=== PATIENT | female | born 1935 | race Caucasian/White ===

== ENCOUNTER 2016-05-08 14:44 | Inpatient (IN) | payer MEDICARE, OTHER ==
[~2016-05-08] VITALS: Ht 167.6 cm; Wt 86.2 kg
--- NOTE | ~2016-05-08 | CON ---
[place], [place] REPORT OF CONSULTATION NAME: MUSA GARCIA [facility] #: [id number] UNIT #: [id number] ROOM: 519 DOCTOR: BROCK BACH MD BIRTHDATE: [birth year] DOS: 05/09/2016 HISTORY OF PRESENT ILLNESS: The patient is a pleasant 80-year-old Euro-Vin[place]ian woman with multiple admissions in the past and states that she started having trouble standing this morning, felt weak, she felt her legs gave away, she laid on the floor. She also had some anterior chest pain, which radiated to the bilateral arms and subsequently was admitted. Further workup revealed that she got acute anemia and subsequently admitted and consulted for further evaluation and management. History of blood transfusions and had multiple endoscopies, colonoscopy with Dr. Barker without any evidence of any active bleeding. PAST MEDICAL HISTORY: Atrial fibrillation with RVR, coronary artery disease, chronic kidney disease stage 4, GERD, hypertension, history of myocardial infarction, insulin-dependent diabetes mellitus, multiple upper and lower endoscopies without evidence of any bleeding. PAST SURGICAL HISTORY: Cardiac stents, 2 stents placed on right coronary artery, total of 6, history of bilateral cataract extraction, cardiac cath, hysterectomy and cystopexy. SOCIAL HISTORY: No tobacco use, drug use, or drinking. FAMILY HISTORY: Mother had heart and kidney disease. Father had myocardial infarction and disease. ALLERGIES: TO ACTOS. MEDICATIONS: Acetaminophen, aspirin, amiodarone, ferrous sulfate, Clopidrol, vitamin D3, Gray, insulin, isosorbide, lorazepam, metoprolol, nystatin, pantoprazole, primidone, Xarelto and Carafate. REVIEW OF SYSTEMS CONSTITUTIONAL: No chills. No fatigue. No fever. No loss of appetite. No night sweats. No weakness. No weight loss. HEENT: No trouble swallowing. No loss of smell. No loss of hearing. No double vision. No pain. No discharge. ENT AND RESPIRATORY: No wheeze. No sore throat. No change in voice. No hearing loss. No nose bleed. No cough. No trouble breathing through nose. No shortness of breath. No coughing up blood. No epistaxis. CARDIOVASCULAR: No chest pain. No dizziness. No irregular heartbeat. No leg edema. No pain in legs while walking. No palpitations. No shortness of breath. DERMATOLOGIC: No acne. No hives. No laceration. No mole. No rash. ENDOCRINE: No cold intolerance. No diabetes. No fatigue. No hot flashes. No polydipsia. No polyuria. No urinating frequently. No weight loss. HEMATOLOGIC AND LYMPH: No fatigue. No easy bruising. GASTROENTEROLOGIC: No change in bowel habits. No indigestion. No frequent bloating. No vomiting blood. No abdominal cramping. No nausea. No heartburn. No vomiting. No abdominal pain. No dysphagia. No diarrhea. No constipation. No blood in stool. [place], [place] REPORT OF CONSULTATION NAME: MUSA GARCIA UNIT #: [id number] ROOM: [facility] DOCTOR: BROCK BACH MD BIRTHDATE: [birth year] FEMALE REPRODUCTIVE: No vaginal itching. No difficulty urinating. No heavy periods. No dyspareunia. No sexually active. No dysmenorrhea. No pelvic pain. No breast pain. No nipple discharge. No abnormal vaginal discharge. No hot flashes. MUSCULOSKELETAL: No back pain. No muscle pain or weakness. No neck pain. No tingling/numbness. No swelling/bruising. No osteoporosis treatment. OPHTHALMOLOGIC: No double vision. No diminished vision. No loss of vision. UROLOGIC: No dysuria. No frequent nighttime urination. No irregular periods. No pain with urination. No difficulty urinating. No blood in urine. No frequent urination. No urinary incontinence. NEUROLOGIC: No loss of sensation in specific body area. No vertigo. No burning pain in feet. No trouble with balance. No trouble with coordination. No loss of consciousness. No loss of feeling/power. No confusion. No headache. No tingling/numbness. PSYCHOLOGIC: No tinnitus. No headaches. No shortness of breath. No weight decrease. No nausea. No vomiting. No abdominal discomfort. No constipation. No diarrhea. No depression. No anxiety. PHYSICAL EXAMINATION: VITAL SIGNS: Blood pressure 130/70, respiratory rate 18, pulse 82, temperature 98.1. GENERAL: General appearance: Pleasant patient, no apparent distress. HEENT: Oral mucosa appears intact. The external ears are normal in appearance. Nares are patent without lesions, exudates, erythema, or inflammation. Tongue is symmetrical. Uvula is midline. NECK AND THYROID: Neck supple without palpable masses. Trachea is midline. No thyromegaly. No carotid bruit or JVD. BREASTS: Normal. Nipples unremarkable. No drainage. No lumps felt on either side. HEART: Normal S1, S2, without significant murmur, rub, or gallop. LUNGS: Clear to auscultation and percussion with good air entry bilaterally. The patient is breathing easily without the use of accessory muscles. Diaphragmatic excursions are intact. ABDOMEN: No costovertebral angle tenderness. Soft. No organomegaly or masses. Nontender. No hernias present. Liver and spleen are not palpable. LYMPHATIC: No adenopathy noted in the cervical, supraclavicular, axillary, or inguinal regions. NEUROLOGIC: Nonfocal. Oriented to person, place, and time. MENTAL STATUS: Appropriate for mood and affect. PERIPHERAL PULSES: No varicosities. Femoral and pedal pulses are palpable. EXTREMITIES: Without cyanosis, clubbing, or edema. No gross anomalies. LABORATORY DATA: White count of 6.2, hemoglobin 8.7, hematocrit 27.4, platelets 242. From 05/08/2016, white count of 7.1, hemoglobin 6.4, hematocrit 20.7, platelet count of 263. EGFR of 36. Sodium 136, potassium 4.2, chloride 105, bicarb 105. ASSESSMENT: 1. Anemia of unknown etiology with GI workup negative. 2. Chronic kidney disease. [place], [place] REPORT OF CONSULTATION NAME: MUSA GARCIA UNIT #: [id number] ROOM: [facility] DOCTOR: BROCK BACH MD BIRTHDATE: [birth year] 3. Possible anemia of chronic disease/myelodysplastic syndromes though less likely. 4. Status post multiple units of packed red blood cells with increase in hemoglobin and hematocrit. PLAN: We will review the iron studies as well as hemolytic workup has been ordered. The patient may need a bone marrow biopsy. Also, advised to get a capsule endoscopy if possible. Follow bone marrow as outpatient. I had a detailed discussion with the patient about it and she seemed to understand it. In addition, Cardiology looking into her anticoagulation, which could be another reason for loss of blood. Thanks for consulting and letting me participate in the care of this interesting patient. BROCK BACH MD CM:CONSTR:REPORT OF CONSULTATION 1545 05/13/16 1207 interface
[~2016-05-08 14:44] MED LIST: AMLODIPINE BESYL5 MG PO; AMOXICILLIN500 MG PO; ANTIVERT/2525 MG PO; ANTIVERT25 MG PO; ASPI-COR81 M1 PO; ASPIRIN ADULT L81 M2 PO; ASPIRIN81 M1 PO; ATIVAN0.5 MG PO; ATORVASTATIN CA40 M1 PO; AUGMENTIN 875875 MG PO; BUMEX2 MG PO; CARAFATE1 GM/10 ML PO; CIPROFLOXACIN500 MG PO; CLOPIDOGREL75 MG PO; Carafate1 GM/10 ML PO; DIFLUCAN150 MG PO; ENALAPRIL10 MG PO; ENALAPRIL5 MG PO; FEOSOL325 MG PO; FLONASE ALLERG9.9 ML NAS; FUROSEMIDE40 MG PO; GABAPENTIN100 M2 PO; HUMULIN R100 U/ML SC; HYDROCODONE; HYDROCODONE BIT1 T11 PO; IMDUR SA60 M1 PO; IMDUR SA60 MG PO; IMDUR30 MG PO; K-TAB10 MEQ PO; KLOR-CON M2020 MEQ PO; LANTUS; LANTUS100 U/ML SC; LASIX40 MG PO; LEVOFLOXACIN500 MG PO; LOPRESSOR25 MG PO; LOSARTAN POTASS25 M1 PO; MECLIZINE HCL25 M1 PO; METOPROLOL SUCC25 M2 PO; METOPROLOL SUCC50 M2 PO; METOPROLOL50 MG PO; MYSOLINE50 M1 PO; MYSOLINE50 M2 PO; NEURONTIN100 MG PO; NEXIUM40 MG PO; NITROSTAT0.4 MG SL; NORCO 10-325 T1 EACH PO; NORVASC10 MG PO; NORVASC2.5 MG PO; NORVASC5 MG PO; NOVOLOG1 UNIT/0.0 SC; NOVOLOG100 U/ML SC; NYAMYC100000 U/G T; PACERONE200 MG PO; PLAVIX75 M1 PO; PLAVIX75 MG PO; POTASSIUM99 M4 PO; PROTONIX40 MG PO; RANEXA500 M1 PO; REGLAN10 MG PO; RENEXA PO; TESSALON PERLE100 MG PO; TOPROL XL100 MG PO; TOPROL XL50 M1 PO; TRAMADOL HCL50 MG PO; VALACYCLOVIR HYD1 GM PO; VICODIN 5/500 505 MG PO; VITAMIN D34000 UNIT PO; XARELTO15 M1 PO; XARELTO20 M1 PO; ZESTRIL10 MG PO; ZOCOR80 MG PO; [UNRECOGNIZED DRUG - OTHER]
[2016-05-08 14:52] VITALS: BP 131/47
[2016-05-08] MEDS ORDERED: APAP325 MG PO (15:05)
[2016-05-08] MEDS ORDERED: ASPIRIN81 M1 PO (15:06)
[2016-05-08] MEDS ORDERED: ATORVASTATIN CA40 M1 PO (15:06)
[2016-05-08] MEDS ORDERED: AMIODARONE HYD200 MG PO (15:06)
[2016-05-08] MEDS ORDERED: VITAMIN D400 IU PO (15:07)
[2016-05-08] MEDS ORDERED: CLOPIDOGREL75 MG PO (15:07)
[2016-05-08] MEDS ORDERED: IRON325 M2 PO (15:07)
[2016-05-08] MEDS ORDERED: HUMULIN R100 U/ML SC ×2 (15:08→15:10)
[2016-05-08] MEDS ORDERED: LASIX20 MG PO (15:08)
[2016-05-08 15:33] LABS: BASO % 0.3 % (0.0-1.0); EOS % 0.6 % (1.0-4.0); HEMATOCRIT 20.7 % (37.0-47.0); HEMOGLOBIN 6.4 g/dl (12.0-16.0); IG # 0.1 10*3/uL (0.0-0.1); LYMPH # 0.4 10*3/uL (1.3-4.4); LYMPH % 5.1 % (27.0-41.0); MEAN CORPUSCULAR HGB 29.4 pg (27.0-31.0); MEAN CORPUSCULAR HGB CONC 30.9 g/dl (33.0-37.0); MEAN PLATELET VOLUME 10.1 fl (9.6-12.3); MONO # 0.7 10*3/uL (0.1-1.0); MONO % 9.6 % (3.0-9.0); NEUT # 5.9 10*3/uL (2.3-7.9); NEUT % 83.4 % (47.0-73.0); NUCLEATED RED BLOOD CELL 0.3 % (0.0-0.0); PLATELET COUNT AUTOMATED 263 10*3/uL (130-400); RED BLOOD COUNT 2.18 10*6/uL (4.10-5.10); RED CELL DISTRI WIDTH 14.6 % (0-14.5); WHITE BLOOD COUNT 7.1 10*3/uL (4.8-10.8)
[2016-05-08 15:50] LABS: POTASSIUM 4.4 mmol/L (3.5-5.1)
[2016-05-08 15:55] VITALS: BP 117/48
[2016-05-08] MEDS ORDERED: LANTUS100 U/ML SC ×2 (15:59)
[2016-05-08] MEDS ORDERED: ISOSORBIDE MON120 MG PO (15:59)
[2016-05-08] MEDS ORDERED: ATIVAN0.5 MG PO (16:00)
[2016-05-08] MEDS ORDERED: LOPRESSOR50 M1 PO (16:00)
[2016-05-08] MEDS ORDERED: NITROSTAT0.4 MG SL (16:01)
[2016-05-08] MEDS ORDERED: NORCO 10-325 T1 EACH PO (16:02)
[2016-05-08] MEDS ORDERED: PANTOPRAZOLE SO40 MG PO (16:02)
[2016-05-08 16:03] LABS: BILIRUBIN NEGATIVE (NEGATIVE); BLOOD 2+ (NEGATIVE); CLARITY SL CLOUDY (CLEAR); COLOR YELLOW (YELLOW); GLUCOSE 3+ (NEGATIVE); KETONE NEGATIVE (NEGATIVE); LEUKO ESTERASE NEGATIVE (NEGATIVE); NITRITE NEGATIVE (NEGATIVE); PROTEIN 1+ (NEGATIVE); UROBILINOGEN 0.2 E.U./dl (0.2-1.0)
[2016-05-08] MEDS ORDERED: XARELTO15 M1 PO (16:03)
[2016-05-08] MEDS ORDERED: POTASSIUM CHLO10 MEQ PO (16:03)
[2016-05-08] MEDS ORDERED: PRIMIDONE50 MG PO (16:03)
[2016-05-08] MEDS ORDERED: CARAFATE1 G1 PO (16:04)
[2016-05-08] MEDS ORDERED: MYLANTA SUSPENSION PO (16:06)
[2016-05-08 16:12] LABS: WBC 16-20 wbc/hpf (0-5)
[2016-05-08 16:13] LABS: BACTERIA 2+; URINE REFLEX COMMENT YES (NO)
[2016-05-08 17:22] VITALS: BP 130/70
[2016-05-08] MEDS ORDERED: NYSTATIN1 EAC3 MC (18:15)
[2016-05-08 19:10] VITALS: BP 119/32
[2016-05-08 20:00] VITALS: BP 136/43
[2016-05-09] VITALS (12 sets, daily range): BP systolic 113–170; BP diastolic 40–62
[2016-05-09 01:26] LABS: CKMB 0.9 ng/ml (0.5-3.6)
[2016-05-09 02:41] LABS: BASO % 0.1 % (0.0-1.0); EOS % 0.3 % (1.0-4.0); HEMATOCRIT 26.6 % (37.0-47.0); IG # 0.1 10*3/uL (0.0-0.1); LYMPH # 0.8 10*3/uL (1.3-4.4); LYMPH % 10.8 % (27.0-41.0); NEUT # 5.1 10*3/uL (2.3-7.9); NEUT % 72.8 % (47.0-73.0); RETICULOCYTE % 6.46 % (0.50-2.50); WHITE BLOOD COUNT 6.9 10*3/uL (4.8-10.8)
[2016-05-09 02:42] LABS: HEMOGLOBIN 8.6 g/dl (12.0-16.0); IRF 33.5 % (2.4-13.3); RET-He 32.8 pg (32.1-37.9)
[2016-05-09 02:53] LABS: IRON 149 ug/dL (50-170); IRON SATURATION 65 %; UIBC 79 ug/dL (110-365)
[2016-05-09 06:00] LABS: BASO % 0.5 % (0.0-1.0); EOS % 0.3 % (1.0-4.0); HEMATOCRIT 27.4 % (37.0-47.0); HEMOGLOBIN 8.7 g/dl (12.0-16.0); IG # 0.1 10*3/uL (0.0-0.1); LYMPH # 0.7 10*3/uL (1.3-4.4); LYMPH % 11.7 % (27.0-41.0); MEAN CELL VOLUME 92.9 fl (81.0-99.0); MEAN CORPUSCULAR HGB 29.5 pg (27.0-31.0); MEAN CORPUSCULAR HGB CONC 31.8 g/dl (33.0-37.0); MEAN PLATELET VOLUME 10.4 fl (9.6-12.3); MONO % 16.9 % (3.0-9.0); NEUT # 4.3 10*3/uL (2.3-7.9); NEUT % 69.5 % (47.0-73.0); NUCLEATED RED BLOOD CELL 0.3 % (0.0-0.0); PLATELET COUNT AUTOMATED 242 10*3/uL (130-400); RED BLOOD COUNT 2.95 10*6/uL (4.10-5.10); WHITE BLOOD COUNT 6.2 10*3/uL (4.8-10.8)
[2016-05-09 06:06] LABS: CKMB 0.9 ng/ml (0.5-3.6)
[2016-05-09 06:23] LABS: PROTHROMBIN TIME 10.7 SECONDS (9.0-12.4)
[2016-05-09 06:27] LABS: HEMOGLOBIN A1c 7.3 % (4.8-5.6)
[2016-05-09 06:37] LABS: FREE T4 1.19 ng/dl (0.76-1.46); MAGNESIUM 2.5 mg/dL (1.5-2.1); POTASSIUM 3.6 mmol/L (3.5-5.1); THYROID STIM HORMONE (HS) 2.01 uIU/ml (0.358-4.75)
[2016-05-09 08:08] LABS: FOLIC ACID 13.13 ng/mL (>5.38)
[2016-05-09 12:31] LABS: CKMB 1.2 ng/ml (0.5-3.6)
[2016-05-10] VITALS: BP 182/78
[2016-05-10 00:30] VITALS: BP 140/46
[2016-05-10 04:00] VITALS: BP 136/44
[2016-05-10 06:04] LABS: BASO % 0.3 % (0.0-1.0); EOS % 0.4 % (1.0-4.0); HEMATOCRIT 31.6 % (37.0-47.0); HEMOGLOBIN 10.4 g/dl (12.0-16.0); IG # 0.1 10*3/uL (0.0-0.1); LYMPH # 0.6 10*3/uL (1.3-4.4); LYMPH % 8.2 % (27.0-41.0); MEAN CELL VOLUME 92.1 fl (81.0-99.0); MEAN CORPUSCULAR HGB 30.3 pg (27.0-31.0); MEAN CORPUSCULAR HGB CONC 32.9 g/dl (33.0-37.0); MEAN PLATELET VOLUME 10.3 fl (9.6-12.3); MONO # 0.7 10*3/uL (0.1-1.0); MONO % 9.2 % (3.0-9.0); NEUT # 5.9 10*3/uL (2.3-7.9); NEUT % 81.2 % (47.0-73.0); PLATELET COUNT AUTOMATED 246 10*3/uL (130-400); RED BLOOD COUNT 3.43 10*6/uL (4.10-5.10); RED CELL DISTRI WIDTH 15.1 % (0-14.5); WHITE BLOOD COUNT 7.2 10*3/uL (4.8-10.8)
[2016-05-10 08:00] VITALS: BP 142/86
[2016-05-10 12:00] VITALS: BP 142/76
[2016-05-10] MEDS ORDERED: TESSALON PERLE100 MG PO (13:39)
[2016-05-10] MEDS ORDERED: PREDNISONE10 MG PO (13:39)
[2016-05-10] MEDS ORDERED: DOXYCYCLINE100 M3 PO (13:39)
[2016-05-10 16:00] VITALS: BP 154/59
[2016-05-10] MEDS ORDERED: ZOFRAN4 MG PO (16:00)
[2016-05-10] MEDS ORDERED: NORCO 5-325 TA1 EACH PO (16:00)
== END 2016-05-10 16:20 | disposition home or self-care (01) | DRG 811 ==
LOC: ED 14:44 → 5E 16:49 → EDHOLD 16:49 → 5E 17:06
PROVIDERS: Emergency Medicine; Internal Medicine; Internal Medicine Hematology & Oncology
PROC: 30233N1 Transfusion of Nonautologous Red Blood Cells into Peripheral Vein, Percutaneous Approach (ICD-10-PCS; principal; 2016-05-08)
DX: R71.0 Precipitous drop in hematocrit (principal); J96.00 Acute respiratory failure, unspecified whether with hypoxia or hypercapnia; N18.4 Chronic kidney disease, stage 4 (severe); J44.1 Chronic obstructive pulmonary disease with (acute) exacerbation; E11.22 Type 2 diabetes mellitus with diabetic chronic kidney disease; I12.9 Hypertensive chronic kidney disease with stage 1 through stage 4 chronic kidney disease, or unspecified chronic kidney disease; I25.10 Atherosclerotic heart disease of native coronary artery without angina pectoris; K21.9 Gastro-esophageal reflux disease without esophagitis; I48.91 Unspecified atrial fibrillation; E78.5 Hyperlipidemia, unspecified; Z98.42 Cataract extraction status, left eye; Z98.61 Coronary angioplasty status; Z98.41 Cataract extraction status, right eye; I25.2 Old myocardial infarction; Z90.49 Acquired absence of other specified parts of digestive tract; Z82.49 Family history of ischemic heart disease and other diseases of the circulatory system; Z88.8 Allergy status to other drugs, medicaments and biological substances; Z79.82 Long term (current) use of aspirin; Z79.4 Long term (current) use of insulin

== ENCOUNTER → 2016-05-20 | Outpatient (CLI) | payer MEDICARE, OTHER ==
[~2016-05-20] MED LIST changes: +AMIODARONE HYD200 MG PO; +APAP325 MG PO; +CARAFATE1 G1 PO; +DOXYCYCLINE100 M3 PO; +IRON325 M2 PO; +ISOSORBIDE MON120 MG PO; +LASIX20 MG PO; +LOPRESSOR50 M1 PO; +MYLANTA SUSPENSION PO; +NORCO 5-325 TA1 EACH PO; +NYSTATIN1 EAC3 MC; +PANTOPRAZOLE SO40 MG PO; +POTASSIUM CHLO10 MEQ PO; +PREDNISONE10 MG PO; +PRIMIDONE50 MG PO; +VITAMIN D400 IU PO; +ZOFRAN4 MG PO
[2016-05-20 15:36] LABS: BASO % 0.4 % (0.0-1.0); EOS # 0.1 10*3/uL (0.0-0.4); EOS % 0.7 % (1.0-4.0); HEMATOCRIT 42.6 % (37.0-47.0); HEMOGLOBIN 13.4 g/dl (12.0-16.0); LYMPH # 1.3 10*3/uL (1.3-4.4); LYMPH % 18.9 % (27.0-41.0); MEAN CELL VOLUME 92.8 fl (81.0-99.0); MEAN CORPUSCULAR HGB 29.2 pg (27.0-31.0); MEAN CORPUSCULAR HGB CONC 31.5 g/dl (33.0-37.0); MEAN PLATELET VOLUME 10.5 fl (9.6-12.3); MONO # 0.4 10*3/uL (0.1-1.0); MONO % 6.2 % (3.0-9.0); NEUT # 5.1 10*3/uL (2.3-7.9); NEUT % 73.2 % (47.0-73.0); PLATELET COUNT AUTOMATED 335 10*3/uL (130-400); RED BLOOD COUNT 4.59 10*6/uL (4.10-5.10); RED CELL DISTRI WIDTH 13.4 % (0-14.5); RETICULOCYTE % 1.82 % (0.50-2.50)
[2016-05-20 15:43] LABS: IRF 9.9 % (2.4-13.3); RET-He 35.1 pg (32.1-37.9)
== END | disposition home or self-care (01) ==
LOC: LAB 14:59
PROVIDERS: Internal Medicine Hematology & Oncology
DX: D64.9 Anemia, unspecified (principal)

== ENCOUNTER → 2016-07-11 | Outpatient (CLI) | payer MEDICARE, OTHER ==
[2016-07-11 13:44] LABS: BASO % 0.5 % (0.0-1.0); EOS # 0.2 10*3/uL (0.0-0.4); EOS % 1.9 % (1.0-4.0); HEMATOCRIT 34.7 % (37.0-47.0); HEMOGLOBIN 11.1 g/dl (12.0-16.0); LYMPH # 1.1 10*3/uL (1.3-4.4); LYMPH % 13.2 % (27.0-41.0); MEAN CELL VOLUME 90.8 fl (81.0-99.0); MEAN CORPUSCULAR HGB 29.1 pg (27.0-31.0); MEAN PLATELET VOLUME 10.6 fl (9.6-12.3); MONO # 0.7 10*3/uL (0.1-1.0); MONO % 8.6 % (3.0-9.0); NEUT # 6.3 10*3/uL (2.3-7.9); NEUT % 75.4 % (47.0-73.0); PLATELET COUNT AUTOMATED 235 10*3/uL (130-400); RED BLOOD COUNT 3.82 10*6/uL (4.10-5.10); RED CELL DISTRI WIDTH 13.6 % (0-14.5); WHITE BLOOD COUNT 8.4 10*3/uL (4.8-10.8)
== END | disposition home or self-care (01) ==
LOC: LAB 13:10
PROVIDERS: Internal Medicine
DX: M54.5 Low back pain (principal); W19.XXXA Unspecified fall, initial encounter; D63.8 Anemia in other chronic diseases classified elsewhere

== ENCOUNTER → 2016-07-23 | Outpatient (CLI) | payer MEDICARE, OTHER ==
[2016-07-23 15:13] LABS: BASO % 0.4 % (0.0-1.0); EOS # 0.1 10*3/uL (0.0-0.4); EOS % 1.6 % (1.0-4.0); HEMATOCRIT 34.6 % (37.0-47.0); HEMOGLOBIN 11.1 g/dl (12.0-16.0); LYMPH # 1.1 10*3/uL (1.3-4.4); LYMPH % 15.8 % (27.0-41.0); MEAN CELL VOLUME 90.8 fl (81.0-99.0); MEAN CORPUSCULAR HGB 29.1 pg (27.0-31.0); MEAN CORPUSCULAR HGB CONC 32.1 g/dl (33.0-37.0); MONO # 0.4 10*3/uL (0.1-1.0); MONO % 6.2 % (3.0-9.0); NEUT # 5.1 10*3/uL (2.3-7.9); NEUT % 75.6 % (47.0-73.0); PLATELET COUNT AUTOMATED 227 10*3/uL (130-400); RED BLOOD COUNT 3.81 10*6/uL (4.10-5.10); RED CELL DISTRI WIDTH 13.9 % (0-14.5); WHITE BLOOD COUNT 6.8 10*3/uL (4.8-10.8)
== END | disposition home or self-care (01) ==
LOC: MRI 14:00 → LAB 14:06
PROVIDERS: Internal Medicine
DX: I10 Essential (primary) hypertension (principal); T14.8 Other injury of unspecified body region; X58.XXXA Exposure to other specified factors, initial encounter; Y93.89 Activity, other specified; Y92.89 Other specified places as the place of occurrence of the external cause; Y99.8 Other external cause status

== ENCOUNTER → 2016-10-21 | Outpatient (CLI) | payer MEDICARE, OTHER | END | disposition home or self-care (01) | LOC: RAD 10:37 | DX: Z13.820 Encounter for screening for osteoporosis (principal); S32.020A Wedge compression fracture of second lumbar vertebra, initial encounter for closed fracture; Z78.0 Asymptomatic menopausal state; Z90.710 Acquired absence of both cervix and uterus ==

== ENCOUNTER → 2017-01-02 | Outpatient (CLI) | payer MEDICARE, OTHER ==
[~2017-01-02] MED LIST changes: -LOPRESSOR50 M1 PO; +METOPROLOL SUCC50 M1 PO; +MYCOLOG CREAM 115 GM T; +NOVOLOG FL100 UNIT/1 SQ; +PYRIDIUM200 M1 PO; +TRAD5TAB1 PO
== END | disposition home or self-care (01) ==
LOC: RAD 14:32
DX: I50.32 Chronic diastolic (congestive) heart failure (principal); I21.3 ST elevation (STEMI) myocardial infarction of unspecified site

== ENCOUNTER → 2017-01-04 | Outpatient (CLI) | payer MEDICARE, OTHER ==
[2017-01-04 14:20] LABS: BASO % 0.6 % (0.0-1.0); EOS # 0.2 10*3/uL (0.0-0.4); EOS % 3.2 % (1.0-4.0); HEMATOCRIT 35.8 % (37.0-47.0); HEMOGLOBIN 11.3 g/dl (12.0-16.0); LYMPH % 14.2 % (27.0-41.0); MEAN CORPUSCULAR HGB 29.7 pg (27.0-31.0); MEAN CORPUSCULAR HGB CONC 31.6 g/dl (33.0-37.0); MEAN PLATELET VOLUME 10.7 fl (9.6-12.3); MONO # 0.4 10*3/uL (0.1-1.0); MONO % 5.3 % (3.0-9.0); NEUT # 5.5 10*3/uL (2.3-7.9); NEUT % 76.4 % (47.0-73.0); PLATELET COUNT AUTOMATED 231 10*3/uL (130-400); RED BLOOD COUNT 3.81 10*6/uL (4.10-5.10); RED CELL DISTRI WIDTH 13.4 % (0-14.5); WHITE BLOOD COUNT 7.2 10*3/uL (4.8-10.8)
[2017-01-04 14:43] LABS: CREATININE 2.55 mg/dL (0.55-1.02); POTASSIUM 4.3 mmol/L (3.5-5.1); TOTAL PROTEIN 8.3 gm/dL (6.4-8.2)
[2017-01-04 14:49] LABS: THYROID STIM HORMONE (HS) 1.2 uIU/ml (0.358-4.75)
== END | disposition home or self-care (01) ==
LOC: LAB 13:51
PROVIDERS: Internal Medicine
DX: I50.32 Chronic diastolic (congestive) heart failure (principal); I25.84 Coronary atherosclerosis due to calcified coronary lesion; E11.42 Type 2 diabetes mellitus with diabetic polyneuropathy; E55.9 Vitamin D deficiency, unspecified

== ENCOUNTER 2017-01-05 19:50 | Inpatient (IN) | payer MEDICARE, OTHER ==
[~2017-01-05] VITALS: Ht 162.5 cm; Wt 87.3 kg
[2017-01-05 19:50] VITALS: BP 193/70
[~2017-01-05 19:50] MED LIST changes: -MYCOLOG CREAM 115 GM T; -NOVOLOG FL100 UNIT/1 SQ; -PYRIDIUM200 M1 PO; -TRAD5TAB1 PO
[2017-01-05 20:25] VITALS: BP 122/45
[2017-01-05 21:08] LABS: BASO % 0.3 % (0.0-1.0); EOS # 0.2 10*3/uL (0.0-0.4); EOS % 3.1 % (1.0-4.0); HEMATOCRIT 34.4 % (37.0-47.0); HEMOGLOBIN 10.8 g/dl (12.0-16.0); LYMPH # 0.9 10*3/uL (1.3-4.4); LYMPH % 11.1 % (27.0-41.0); MEAN CELL VOLUME 94.2 fl (81.0-99.0); MEAN CORPUSCULAR HGB 29.6 pg (27.0-31.0); MEAN CORPUSCULAR HGB CONC 31.4 g/dl (33.0-37.0); MEAN PLATELET VOLUME 10.6 fl (9.6-12.3); MONO # 0.6 10*3/uL (0.1-1.0); MONO % 8.3 % (3.0-9.0); NEUT # 5.9 10*3/uL (2.3-7.9); NEUT % 76.8 % (47.0-73.0); PLATELET COUNT AUTOMATED 227 10*3/uL (130-400); RED BLOOD COUNT 3.65 10*6/uL (4.10-5.10); RED CELL DISTRI WIDTH 13.2 % (0-14.5); WHITE BLOOD COUNT 7.7 10*3/uL (4.8-10.8)
[2017-01-05 21:18] LABS: ACT PARTIAL THROMBO TIME 23.9 SECONDS (20.8-31.5); INTERNATIONAL NORM RATIO 0.9 (2.0-3.5)
[2017-01-05 21:26] LABS: ALKALINE PHOSPHATASE 173 U/L (45-117); BUN 54 mg/dl (7-24); CHLORIDE 92 mmol/L (98-107); CREATININE 2.58 mg/dL (0.55-1.02); MAGNESIUM 2.7 mg/dL (1.5-2.1); POTASSIUM 4.4 mmol/L (3.5-5.1); SGOT/AST 8 IU/L (3-35); SGPT/ALT 15 U/L (12-78); SODIUM 133 mmol/L (136-145); TOTAL PROTEIN 8.1 gm/dL (6.4-8.2)
[2017-01-05 21:33] LABS: TROPONIN I < 0.015 ng/ml (<0.045)
[2017-01-05 21:34] LABS: BILIRUBIN NEGATIVE (NEGATIVE); BLOOD 2+ (NEGATIVE); CLARITY CLOUDY (CLEAR); COLOR YELLOW (YELLOW); GLUCOSE NEGATIVE (NEGATIVE); KETONE NEGATIVE (NEGATIVE); LEUKO ESTERASE 3+ (NEGATIVE); NITRITE POSITIVE (NEGATIVE); PH 5.5 (5.0-9.0)
[2017-01-05 21:44] LABS: WBC TNTC wbc/hpf (0-5)
[2017-01-05 22:03] LABS: ABG BASE EXCESS 4.9 mmol/L (-2.0-2.0); ABG HCO3 29.5 mmol/l (22-26); ABG O2 SATURATION 96.4 % (95-97); ARTERIAL BLOOD GAS PH 7.424 (7.35-7.45); ARTERIAL BLOOD GAS PO2 87.3 mmHg (80-90)
--- NOTE | 2017-01-05 23:14 | NUR ---
A 81 YO FEMALE admitted to , under the services of ALBAN Henry DO with a diagnosis of SOB, FALLS. Chief complaint is SOB. Patient arrived via ambulance from ER. Monitor applied. Initial assessment completed. Vital signs taken and recorded. ALBAN HENRY DO notified of admission to the unit. Orders received. See assessment for past medical history, medications and allergies. Patient and/or family oriented to unit. [facility]. Clothing/patient valuable form completed. COTY PARKS
--- NOTE | 2017-01-05 23:26 | NUR ---
PT. JORJE HISTORIAN WITH HOME MEDICATIONS AND PT SAID HER DAUGHTER WILL BRING A LIST IN TOMORROW.
[2017-01-06] VITALS: BP 122/45
[2017-01-06 06:18] LABS: BASO % 0.5 % (0.0-1.0); EOS # 0.3 10*3/uL (0.0-0.4); EOS % 3.9 % (1.0-4.0); HEMATOCRIT 31.9 % (37.0-47.0); HEMOGLOBIN 9.9 g/dl (12.0-16.0); LYMPH # 1.4 10*3/uL (1.3-4.4); LYMPH % 21.1 % (27.0-41.0); MEAN CELL VOLUME 95.8 fl (81.0-99.0); MEAN CORPUSCULAR HGB 29.7 pg (27.0-31.0); MEAN PLATELET VOLUME 10.4 fl (9.6-12.3); MONO # 0.7 10*3/uL (0.1-1.0); MONO % 10.2 % (3.0-9.0); NEUT # 4.1 10*3/uL (2.3-7.9); PLATELET COUNT AUTOMATED 215 10*3/uL (130-400); RED BLOOD COUNT 3.33 10*6/uL (4.10-5.10); RED CELL DISTRI WIDTH 13.2 % (0-14.5); WHITE BLOOD COUNT 6.5 10*3/uL (4.8-10.8)
--- NOTE | 2017-01-06 06:28 | NUR ---
24 HR chart check completed.
[2017-01-06 06:45] LABS: ALBUMIN 2.8 gm/dl (3.1-4.5); CREATININE 2.25 mg/dL (0.55-1.02); MAGNESIUM 2.5 mg/dL (1.5-2.1); PHOSPHOROUS 3.8 mg/dL (2.5-4.9); POTASSIUM 3.9 mmol/L (3.5-5.1)
[2017-01-06 06:50] LABS: THYROID STIM HORMONE (HS) 2.41 uIU/ml (0.358-4.75); TOTAL PROTEIN 6.9 gm/dL (6.4-8.2)
[2017-01-06 07:41] LABS: VITAMIN D, 25-HYDROXY 34.9 ng/mL (30-100)
[2017-01-06 08:00] VITALS: BP 129/64
--- NOTE | 2017-01-06 08:30 | NUR ---
PAMPHLET DISTRIBUTOR VS. SLEEPING. I WILL SPEAK TO DAUGHTER ABOUT DC PLAN.
--- NOTE | 2017-01-06 09:38 | NUR ---
LEFT VOICE MAIL FOR DAUGHTER NARESH TO CALL ME TO DISCUSS DC PLAN. CALLED DAUGHTER VIVI WHO TELLS ME PT LIVES WITH HER SISTER NARESH. STATES THEY WOULD LIKE PT TO GO FOR SNF STAY AT [facility] AND [facility]. DC WASTEWATER ENGINEER WILL MAKE REFERRAL.
[2017-01-06] MEDS ORDERED: NOVOLOG FL100 UNIT/1 SQ (10:17)
[2017-01-06] MEDS ORDERED: PYRIDIUM200 M1 PO (10:18)
[2017-01-06] MEDS ORDERED: TRAD5TAB1 PO (10:18)
[2017-01-06] MEDS ORDERED: MYCOLOG CREAM 115 GM T (10:20)
[2017-01-06] MEDS ORDERED: GABAPENTIN100 M2 PO (10:21)
[2017-01-06] MEDS ORDERED: PLAVIX75 M1 PO (10:22)
--- NOTE | 2017-01-06 11:25 | NUR ---
Occupational Therapy evaluation completed this date on 5 with full eval to follow. Precautions include fall risk, h/o falls, o2 use, new ww use/need, IV UE, c/o right knee "giving out", moderate complexity level 55063. Recommend OT per POC and SNF upon d/c to enable safe return home at [facility]. Thank you for this referral. Conchita Evans OTR/l
--- NOTE | 2017-01-06 11:26 | NUR ---
PHYSICAL THERAPY PAtient evaluated on 5, full evaluation to follow. Continue with PT as per plan of care with fall, mod (A) x 2 and knees buckle witout warning precautions. Will require SNF For impaired mobility. Patient is moderate complxity via chart review, tests and evaluation: 41940. Thank you for this referral. Alexandra Bennett,PT
[2017-01-06 12:00] VITALS: BP 150/60
--- NOTE | 2017-01-06 12:02 | NUR ---
MUSA GARCIA [id number] Please refer to the physician's history and physical for past medical history, comorbid conditions, and allergies. Diagnosis: HYPERGLYCEMIA HYPONATREMIA CHRONIC KIDNEY DISEAS Stephen Score: 18,LOW OR NO RISK WOUND DESCRIPTIONS: Location of the wound: left forearm Type of wound: skin tear Thickness: Partial Size: 1.5cm x 5.5cm x 0.1cm 4 small areas noted within this area Tunneling: none Undermining: none Sinus Tract: none Presence of Exudate: serosanguineous Amount: Light Color: Red Odor: None Periwound Skin Appearance: Normal Wound edges: approximated Pain (associated with wound): none at time of assessment How does patient state this happened? pt unsure how she got those Surface the patient is resting on: Isoflex SKIN PREVENTION RECOMMENDATION: 1. Pressure redistribution support surface as appropriate 2. Elevate heels 3. Remove boots/TEDS every shift and reapply 4. Head of bed 30 degrees as tolerated 5. Assess nutrition and hydration 6. Manage moisture 7. Avoid the use of containment devices while in bed 8. Use absorptive products on surfaces limit layers of linens on bed 9. Turn and reposition every 1-2 hours in bed and every 1 hour in chair as tolerated 10. Weight shifts every 15 minutes while up in chair 11. Offloading with pillows or device to keep heels elevated off bed 12. Monitor skin at least every shift 13. Inspect under medical devices twice a day WOUND TREATMENT RECOMMENDATIONS: skin tear guidelines nss, sureprep, versatel, hydrogel cover with optifoam gentle.
--- NOTE | 2017-01-06 13:01 | NUR ---
NORCO 5/325 MG GIVEN FOR C/O BACK PAIN,12/05.
--- NOTE | 2017-01-06 13:07 | NUR ---
MED RECONCILIATION COMPLETED VIA PHARMACIST AT [facility].
--- NOTE | 2017-01-06 13:34 | NUR ---
PHYSICAL THERAPY Kiera seen this PM 1:1 for her therapy session. Went over with Pt on what we were going to do. Transfer supine/sit MIN A X 1, sitting balance supervision X 1. Sit/stand and up on wheeled walker standing balance MOD A X 1, with verbal cueing to watch for bilateral knees buckling and repeat cuse. Gait total 20' X 1, MOD LINE STAKER X 1, with W/W cueing for safety, Pt back supine in bed call light treatment time 17 min. DONNELL FERNANDEZ SCRAPER TENDER.
--- NOTE | 2017-01-06 15:36 | NUR ---
Patient requested to be referred to [facility] or [facility]. Contacted [facility] and faxed referral for both locations. Waiting on acceptance.
[2017-01-06 16:00] VITALS: BP 142/47
[2017-01-06 20:00] VITALS: BP 145/57
--- NOTE | 2017-01-06 20:00 | NUR ---
PT C/O MIDSTERNAL CP 10/05, DESCRIBES SHARP. HR 100. MEDICATED WITH PRN IVP MORPHINE. NO RELIEF OF CP. HR REMAINS AT 100. DR. FRANCIS NOTIFIED. STAT EKG, LABS, AND NITRO ORDERED. CONT. TO MONITOR.
--- NOTE | 2017-01-06 20:41 | NUR ---
NITRO SL GIVEN PER ORDERS. PT STATES THAT CP IS NOW 5/10. RESTING QUIETLY IN BED AT THIS TIME.
[2017-01-06 20:44] LABS: HEMATOCRIT 32.7 % (37.0-47.0); HEMOGLOBIN 10.2 g/dl (12.0-16.0); MEAN CELL VOLUME 95.1 fl (81.0-99.0); MEAN CORPUSCULAR HGB 29.7 pg (27.0-31.0); MEAN CORPUSCULAR HGB CONC 31.2 g/dl (33.0-37.0); MEAN PLATELET VOLUME 10.5 fl (9.6-12.3); PLATELET COUNT AUTOMATED 199 10*3/uL (130-400); RED BLOOD COUNT 3.44 10*6/uL (4.10-5.10); RED CELL DISTRI WIDTH 13.2 % (0-14.5); WHITE BLOOD COUNT 7.9 10*3/uL (4.8-10.8)
--- NOTE | 2017-01-06 20:45 | NUR ---
DR. FRANCIS NOTIFIED OF EKG RESULTS AND PT DECREASING CP.
[2017-01-06 21:01] LABS: ALBUMIN 2.9 gm/dl (3.1-4.5); ALKALINE PHOSPHATASE 115 U/L (45-117); BUN 50 mg/dl (7-24); CHLORIDE 96 mmol/L (98-107); POTASSIUM 4.4 mmol/L (3.5-5.1); SGOT/AST 13 IU/L (3-35); SGPT/ALT 14 U/L (12-78); SODIUM 135 mmol/L (136-145); TOTAL PROTEIN 7.6 gm/dL (6.4-8.2)
[2017-01-06 21:06] LABS: TROPONIN I < 0.015 ng/ml (<0.045)
[2017-01-06 21:09] LABS: PLATELET SUFFICIENCY NORMAL (NORMAL); POLYCHROMASIA SLIGHT; TOTAL CELLS COUNTED 100 #CELLS
--- NOTE | 2017-01-06 22:15 | NUR ---
PATIENT C/O CHEST PAIN 11/04. SL NITRO ADMINISTERED PER PRN ORDER. IN TO SEE PATIENT AT THIS TIME. INSTRUCTED TO ORDER STAT CT OF CHEST. ALSO INSTRUCTED TO GIVE INSULIN PER ORDER, BUT TO HOLD OTHER MEDICATIONS UNTIL PATIENT RETURNS FROM CT. O2 APPLIED VIA NC AT 2L FOR COMFORT. WILL CONTINUE TO MONITOR.
[2017-01-07] VITALS: BP 148/62
--- NOTE | 2017-01-07 00:08 | NUR ---
SPOKE WITH ABOUT CURRENT GLUCOSE LEVEL. PATIENT'S STAT REFLEX WAS 588. RECHECKED BEDSIDE GLUCOSE WITH GLUCOMETER AFTER 22 UNITS WERE GIVEN SUBQ- 556. NEW ORDERS TO FOLLOW.
--- NOTE | 2017-01-07 00:08 | NUR ---
DILAUDID IVP ADMINISTERED PER ORDER FOR CP. PT STATES PAIN HAS DECREASED TO 4/10 AT THIS TIME.
--- NOTE | 2017-01-07 00:34 | NUR ---
REGULAR INSULIN ADMINISTERED IVP ORDERED. WILL RECHECK BS. PT ASYMPTOMATIC.
--- NOTE | 2017-01-07 01:00 | NUR ---
BS VIA GLUCOMETER READS 556. STAT GLUCOSE REFLUX ORDERED W/RESULTS OF 503. DR. FRANCIS NOTIFIED WITH NEW ORDERS OF CONTINUING NOVOLOG INSULIN 25 UNITS TID W/MEALS AND ADMINISTERING 10UNITS REGULAR INSULIN IVP X1 NOW.
--- NOTE | 2017-01-07 02:00 | NUR ---
BS VIA GLUCOMETER READS 435. PT DENIES ANY C/O HYPERGLYCEMIA. WILL CONT. TO MONITOR. PT ASSISTED TO BSC W/OUT DIFF. CALL LIGHT IN REACH. BED ALARM ON.
[2017-01-07 07:42] LABS: CREATININE 2.45 mg/dL (0.55-1.02); POTASSIUM 4.5 mmol/L (3.5-5.1)
[2017-01-07 08:00] VITALS: BP 126/55
--- NOTE | 2017-01-07 08:40 | NUR ---
DR. FAULKNER NOTIFIED OF CRITICAL TROPONIN OF 0.19.
--- NOTE | 2017-01-07 08:41 | NUR ---
PHYSICAL THERAPY Kiera was having her breakfast this physical therapy visit, ,will stop back later. DONNELL FERNANDEZ CNC WOOD LATHE OPERATOR.
--- NOTE | 2017-01-07 08:46 | NUR ---
DR RODRIGES NOTIFIED OF NEW CONSULT D/T CP AND ELEVATED TROPONIN.
--- NOTE | 2017-01-07 09:20 | NUR ---
PT RESTING IN BED JUST FINISHED BREAKFAST. RESP-EASY AND REGULAR. TOLERATED ROUTINE MEDS WITH NO PROBLEM. DRESSING LEFT FOREARM D/I. SLIGHT LE EDEMA,PPP. NO C/O AT THIS TIME. CALL LIGHT IN REACH.
--- NOTE | 2017-01-07 10:18 | NUR ---
PHYSICAL THERAPY Back this AM to work with Kiera for her therapy session. Transfer supine/sit MIN A X 1, sitting balance once up supervision x 1, X 6 min. Sit/stand and standing balance with wheeled walker MOD A X 1, Followed by verbal cues to watch for bilateral knees not to bucke and did well with this this AM visit. Gait total 70' X 1, standard walker and MOD HOST/HOSTESS X 1, with cueing for gait safety, turns with no LOB this gait. Pt up in her bedside chair, call light tray in front. Treatment time 24 min. DONNELL FERNANDEZ BUTCHER SUPERVISOR.
--- NOTE | 2017-01-07 12:00 | NUR ---
SITTING UP IN RECLINER CHAIR. RESP-EASY AND REGULAR. NO C/O AT THIS TIME. CALL LIGHT IN REACH.
--- NOTE | 2017-01-07 12:12 | NUR ---
PHYSICAL THERAPY Kiera seen this PM 1:1 for her therapy gait. Transfer sit/stand and up on her second try with MOD A X 1. Standing balance with wheeled walker MIN/MOD A X 1, verbal cueing to watch for bilateral knee buckeling. Gait 45' X 2, with wheeled walker MOD RAYON CONER X 1, with cueing for gait, walker, turn safety with one sitting rest. Kiera is not safe up ambulating by herself at this time. Pt up in bedside chair call light and went over gait safety treatment time 25 min. DONNELL FERNANDEZ CUSTOMER OPERATIONS SPECIALIST.
--- NOTE | 2017-01-07 14:30 | NUR ---
PT RESTING IN BED. RESP-EASY AND REGULAR. NO C/O AT THIS TIME. CALL LIGHT IN REACH.
--- NOTE | 2017-01-07 14:36 | NUR ---
Patient has been accepted to [facility] in [place] and can go after 3 night stay is completed tomorrow, Friday01/08/17.
--- NOTE | 2017-01-07 14:36 | NUR ---
Shift chart check completed.
--- NOTE | 2017-01-07 15:31 | NUR ---
SPUTUM SPECIMEN SENT TO LAB PER ORDERS
--- NOTE | 2017-01-07 15:37 | NUR ---
ELEVATED TROPONIN NOT CALLED IT IS TRENDING DOWN
[2017-01-07 16:00] VITALS: BP 114/40
[2017-01-07 20:00] VITALS: BP 125/44
--- NOTE | 2017-01-07 23:29 | NUR ---
MEDICATED WITH PRN DULCOLAX PER ORDER AND REQUEST.
[2017-01-08] VITALS: BP 117/49
[2017-01-08 06:28] LABS: HEMATOCRIT 31.9 % (37.0-47.0); HEMOGLOBIN 10.2 g/dl (12.0-16.0); MEAN CELL VOLUME 94.7 fl (81.0-99.0); MEAN CORPUSCULAR HGB 30.3 pg (27.0-31.0); MEAN PLATELET VOLUME 11.1 fl (9.6-12.3); PLATELET COUNT AUTOMATED 219 10*3/uL (130-400); RED BLOOD COUNT 3.37 10*6/uL (4.10-5.10); RED CELL DISTRI WIDTH 13.3 % (0-14.5); WHITE BLOOD COUNT 9.3 10*3/uL (4.8-10.8)
[2017-01-08 06:38] LABS: CREATININE 2.27 mg/dL (0.55-1.02); MAGNESIUM 2.4 mg/dL (1.5-2.1); PHOSPHOROUS 3.3 mg/dL (2.5-4.9); POTASSIUM 4.6 mmol/L (3.5-5.1)
--- NOTE | 2017-01-08 06:38 | NUR ---
MEDICATED WITH PRN NORCO PER ORDER AND REQUEST.
[2017-01-08 07:32] LABS: PLATELET SUFFICIENCY NORMAL (NORMAL); TOTAL CELLS COUNTED 100 #CELLS
--- NOTE | 2017-01-08 07:50 | NUR ---
PT RESTING IN BED, NO DISTRESS NOTED. WILL MONITOR. FAMILY AT BEDSIDE
[2017-01-08 08:00] VITALS: BP 127/39
--- NOTE | 2017-01-08 11:09 | NUR ---
Patient seen 1:1 30 minutes this date. Completed supine to sit EOB CGA use rail and verbal cues proper foot placement for support EOB. Patient completed Stand pivot xfer bed to bedside commode CGA with verbal cues reaching back for arm rest for safety. Completed toileting task Ilya clothes management and CGA hygiene elly care. Completed stand pivot transfer use FWW bedside commode to bed CGA with min verbal cues safety/FWW management. Patient completed stand tolerance use FWW support approx 1 min with c/o fatigue and education purse meliton breathing for energy conservation. Patient completed BUE str. all planes x 10 reps seated EOB with CGA maintain sit balance with fatigue. Patient completed sit to supine Ilya. Call light within reach. Patient identified by name and date of prior session this date. Continue towards plan of care. Vanessa REYES
[2017-01-08 12:00] VITALS: BP 136/51
--- NOTE | 2017-01-08 13:06 | NUR ---
PHYSICAL THERAPY Kiera seen this PM 1:1 for her therapy treatment. Transfer supine/sit MOD A X 1, sitting balance supervision x 1, sit/stand and pivot onto pt's bedside commode MOD A X 1. Followed by gait total 60' X 2, with one sitting rest with this, verbal cueing for gait, walker, turn and balance safety and is improving but not safe by herself. Pt up in her bedside chair for her lunch. DONNELL FERNANDEZ BRICK LOADER.
--- NOTE | 2017-01-08 13:40 | NUR ---
PHYSICAL THERAPY CO-SIGN I approve of the Phyical Therapy notes written above. TIEN PAN PT
[2017-01-08 16:00] VITALS: BP 132/62
[2017-01-08] MEDS ORDERED: Zaroxolyn,Diul2.5 MG PO (16:16)
--- NOTE | 2017-01-08 16:18 | NUR ---
ZAROXLYN ADDED TO MED REC PER DR RODRIGES AND DR VYAS
--- NOTE | 2017-01-08 17:11 | NUR ---
PT RESTING IN BED, NO DISTRESS NOTED. WILL MONITOR
[2017-01-08 20:00] VITALS: BP 124/53
[2017-01-08 21:52] LABS: BILIRUBIN NEGATIVE (NEGATIVE); BLOOD 1+ (NEGATIVE); CLARITY SL CLOUDY (CLEAR); COLOR YELLOW (YELLOW); GLUCOSE NEGATIVE (NEGATIVE); KETONE NEGATIVE (NEGATIVE); LEUKO ESTERASE 3+ (NEGATIVE); NITRITE NEGATIVE (NEGATIVE); UROBILINOGEN 0.2 E.U./dl (0.2-1.0)
[2017-01-08 22:03] LABS: WBC TNTC wbc/hpf (0-5)
[2017-01-08 22:04] LABS: BACTERIA 2+
[2017-01-09] VITALS: BP 127/32
--- NOTE | 2017-01-09 01:08 | NUR ---
PATIENT MEDICATED WITH NORCO AND ROBITUSSIN AC PER PRN ORDER FOR C/O BACK PAIN AND COUGH. RATED BACK PAIN A 6/10 WITH 10 BEING THE WORST. SEE EMAR. REINFORCED USE OF CALL LIGHT.
[2017-01-09 06:03] LABS: CREATININE 2.27 mg/dL (0.55-1.02); POTASSIUM 4.8 mmol/L (3.5-5.1)
[2017-01-09 08:00] VITALS: BP 148/52
--- NOTE | 2017-01-09 08:25 | NUR ---
PHYSICAL THERAPY' Kiera seen this AM and wanting to have her breakfast first, daughter present. DONNELL FERNANDEZ BUSINESS INTELLIGENCE DIRECTOR.
--- NOTE | 2017-01-09 08:43 | NUR ---
PT RESTING IN BED, EATING BREAKFAST. NO DISTRESS NOTED; FAMILY AT BEDSIDE . WILL MONITOR
--- NOTE | 2017-01-09 10:32 | NUR ---
PHYSICAL THERAPY Kiera seen this AM, daughter present. Transfer supine/sit MOD A X 1, sitting balance CG X 1. Sit/stand and standing balance MOD A X 1, with cueing for safety, balance. Gait 50' X 2, with wheeled walker MOD HOSPITAL TECHNICIAN X 1, one sitting rest. Followed by up in her bedside chair, call light, phone and breakfast tray in front, treatment time 24 min. DONNELL FERNANDEZ TILE SETTER.
[2017-01-09 12:00] VITALS: BP 127/59
--- NOTE | 2017-01-09 12:37 | NUR ---
Patient accepted to [facility] in [place] and can go when medically stable for discharge.
[2017-01-09] MEDS ORDERED: ATORVASTATIN CA80 M1 PO (13:12)
[2017-01-09] MEDS ORDERED: DUONEB 3 MG/3 ML3 M1 NEB (13:12)
[2017-01-09] MEDS ORDERED: NORCO 10-325 T1 EACH PO (13:12)
[2017-01-09] MEDS ORDERED: ATIVAN0.5 MG PO (13:12)
[2017-01-09] MEDS ORDERED: Insulin Lispro, Reco SC (13:12)
--- NOTE | 2017-01-09 15:21 | NUR ---
Patient is being discharged to [facility], transportation scheduled for 4:30 pm with [facility]. NH, nursing and family notified.
--- NOTE | 2017-01-09 15:54 | NUR ---
REPORT CALLED TO [place] ( SPOKE WITH GERMÁN )
--- NOTE | 2017-01-09 16:29 | NUR ---
PT REFUSED TO HAVE DC PHOTOS TAKEN. STATES " THIS DRESSING WAS JUST PUT ON HERE "
--- NOTE | 2017-01-09 16:38 | NUR ---
Discharge instructions reviewed with patient/family. Patient receptive and verbalizes understanding. Follow-up care arranged. Written instructions given to patient/family. JOSÉ LUIS KAMINSKI
--- NOTE | 2017-01-10 07:10 | NUR ---
OCCUPATIONAL THERAPY CO-SIGN I approve of the Occupational Therapy notes written above. VIJAY QIU OTR/Uche
--- NOTE | 2017-01-10 07:48 | NUR ---
PHYSICAL THERAPY CO-SIGN I approve of the Phyical Therapy notes written above. TIEN PAN PT
== END 2017-01-09 16:38 | disposition other institution (70) | DRG 280 ==
LOC: ED 19:50 → EDHOLD 22:33 → 5E 22:33 → EDHOLD 22:35 → 5E 01-09 16:38
PROVIDERS: Emergency Medicine Emergency Medical Services; Hospitalist; Student in an Organized Health Care Education/Training Program; ADMIT Internal Medicine
DX: I21.4 Non-ST elevation (NSTEMI) myocardial infarction (principal); N17.0 Acute kidney failure with tubular necrosis; I50.33 Acute on chronic diastolic (congestive) heart failure; N18.4 Chronic kidney disease, stage 4 (severe); D68.59 Other primary thrombophilia; E11.22 Type 2 diabetes mellitus with diabetic chronic kidney disease; E87.1 Hypo-osmolality and hyponatremia; E11.65 Type 2 diabetes mellitus with hyperglycemia; N39.0 Urinary tract infection, site not specified; I13.0 Hypertensive heart and chronic kidney disease with heart failure and stage 1 through stage 4 chronic kidney disease, or unspecified chronic kidney disease; I25.10 Atherosclerotic heart disease of native coronary artery without angina pectoris; K21.9 Gastro-esophageal reflux disease without esophagitis; N32.89 Other specified disorders of bladder; R29.6 Repeated falls; E78.00 Pure hypercholesterolemia, unspecified; F41.1 Generalized anxiety disorder; I48.0 Paroxysmal atrial fibrillation; Z79.4 Long term (current) use of insulin; Z88.8 Allergy status to other drugs, medicaments and biological substances; Z79.899 Other long term (current) drug therapy; Z79.82 Long term (current) use of aspirin; I25.2 Old myocardial infarction; Z95.5 Presence of coronary angioplasty implant and graft; Z90.710 Acquired absence of both cervix and uterus; Z98.41 Cataract extraction status, right eye; Z98.42 Cataract extraction status, left eye; Z82.49 Family history of ischemic heart disease and other diseases of the circulatory system; Z84.1 Family history of disorders of kidney and ureter; Z83.3 Family history of diabetes mellitus; Z82.3 Family history of stroke

== ENCOUNTER 2017-01-18 11:04 | Inpatient (IN) | payer MEDICARE, OTHER ==
[~2017-01-18] VITALS: Ht 165.1 cm; Wt 96.7 kg
[2017-01-18] VITALS (8 sets, daily range): BP systolic 140–153; BP diastolic 55–73
--- NOTE | ~2017-01-18 | PR ---
[place], [place] PROGRESS NOTE NAME: MUSA GARCIA UNIT #: [id number] ROOM: 426 DOCTOR: BARBER RODRIGES MD BIRTHDATE: [birth year] DOS: 01/27/2017 SUBJECTIVE: The patient was seen at her bedside today, 01/27/2017, for followup of atherosclerotic heart disease and paroxysmal atrial fibrillation. She was admitted to the hospital on this occasion with peripheral edema and generalized weakness. She was diuresed and currently appears to be euvolemic. On the other hand, she continues to be very weak. Yesterday, she slept most of the day; today, she is arousable and can hold a conversation, but still has a tremor and a very weak voice. She does appear to be awake and alert and oriented once aroused; however. PHYSICAL EXAMINATION: VITAL SIGNS: Pulse is 68 and regular, blood pressure is 140/60. She is afebrile. She weighs 96.7 kg and has oximetry measurements of 95%. Body mass index is 35.5. NECK: Supple. She has no jugular distention. HEART: Has a regular rhythm with an S4 gallop, but no S3 or murmur. LUNGS: Respirations are unlabored. Her chest is clear anteriorly and laterally. ABDOMEN: Obese, but otherwise benign. EXTREMITIES: Showed no significant ankle edema. IMPRESSION: 1. Atherosclerotic heart disease. 2. Paroxysmal atrial fibrillation, controlled with amiodarone. 3. Acute on chronic diastolic heart failure, currently compensated. 4. Hypertension. 5. Type 2 diabetes mellitus. 6. Chronic renal insufficiency. PLAN: From a heart standpoint, she does seem to be compensated. We will continue to follow her as she is evaluated by her primary team. No other cardiac evaluation is pending at this time. We thank the hospitalist group for asking our advice regarding her care. [place], [place] PROGRESS NOTE NAME: MUSA GARCIA UNIT #: [id number] ROOM: 426 DOCTOR: BARBER RODRIGES MD BIRTHDATE: [birth year] BARBER RODRIGES MD CM:PNTRANS [id number] BARBER RODRIGES MD 01/27/17 2332 interface
--- NOTE | ~2017-01-18 | PR ---
[place], [place] PROGRESS NOTE NAME: MUSA GARCIA [facility] #: [id number] UNIT #: [id number] ROOM: 426 DOCTOR: BARBER RODRIGES MD BIRTHDATE: [birth year] DOS: 01/25/2017 The patient was seen at her bedside today with her daughter in attendance, 01/25/2017. She is an 81-year-old woman who does have a history of coronary artery disease. She had her first stent to the LAD in the distant past and has had multiple catheterizations and stent since then. Her most recent catheterization was done on 11/03/2015 when she was found to have a high-grade stenosis of the right coronary artery and received 2 drug-eluting stents. Since then, she has developed atrial fibrillation and has been managed with amiodarone and rivaroxaban. She also has a history of hypertension, hyperlipidemia and diabetes. She presented to the hospital on this occasion with generalized weakness and dyspnea. She had recently been discharged from the hospital with a non-ST elevation myocardial infarction and had been treated medically because of chronic renal insufficiency. She presented now with dyspnea and weakness, but no chest pain. She was found to have acute on chronic diastolic heart failure. During the hospitalization, she also was documented as having pneumonia and a swallowing study did show that she has silent aspiration. She is being treated with speech therapy and thickened fluids now. In general, she feels like she is doing poorly. She has a hard time breathing and is extremely weak. She still denies any chest pain. PAST HISTORY: Includes, 1. Coronary artery disease, status post multiple stents. 2. Hypertension. 3. Type 2 diabetes mellitus. 4. Chronic renal insufficiency. 5. Acute on chronic diastolic heart failure. 6. Anemia. 7. Dyslipidemia. 8. Obesity. CURRENT MEDICATIONS: Include levofloxacin, vancomycin, piperacillin, vitamin D, metolazone 2.5 mg daily, isosorbide mononitrate 120 mg daily, iron sulfate, Lovenox 30 mg subcutaneously daily, docusate 100 mg daily, clopidogrel 75 mg daily, aspirin 81 mg daily, amiodarone 200 mg daily, pantoprazole 40 mg daily, Carafate 1 gram before meal and at bedtime, Mysoline 50 mg t.i.d., metoprolol 150 mg b.i.d., insulin before meal and at bedtime, gabapentin 200 mg t.i.d., atorvastatin 80 mg at bedtime, Bumex 1 mg IV q.12 hours, nitroglycerin p.r.n., DuoNeb q. 6 hours. PHYSICAL EXAMINATION: VITAL SIGNS: Today, her pulse is 60 with an occasional premature beat. Blood pressure 136/52. She is afebrile. She weighs 96.3 kg and has a body mass index of 35.3. NECK: Supple. She has no jugular distention. She does have mild hepatojugular reflux. Carotids are full. LUNGS: Respirations are unlabored. She has decreased breath sounds at the bases. She is lying at about 30-degree angle. HEART: Has a regular rhythm with an occasional premature beat. She has a [place], [place] PROGRESS NOTE NAME: MUSA GARCIA UNIT #: [id number] ROOM: 426 DOCTOR: BARBER RODRIGES MD BIRTHDATE: [birth year] fourth heart sound, but no third heart sound. ABDOMEN: Obese, but otherwise benign. EXTREMITIES: Showed 1+ edema bilaterally. LABORATORY DATA: Review of the monitor does show sinus rhythm with PACs. IMPRESSION: 1. Recurrent aspiration pneumonia. 2. Atherosclerotic heart disease. The patient currently is not showing any signs of acute coronary ischemia, but did have a non-ST elevation VA around 01/07/2017. 3. Paroxysmal atrial fibrillation. The patient is on amiodarone. Anticoagulation has been stopped because of recurrent anemia and GI bleeding, but she is on dual antiplatelet therapy for her coronary artery disease. 4. History of hypertension. 5. Type 2 diabetes mellitus. 6. Chronic renal insufficiency. PLAN: The patient is being treated for her pneumonia. We will have to watch her carefully for signs of fluid overload, especially since she is receiving vancomycin. For now, we will continue her current medical regimen, but adjust her diuretics as needed for fluid management. We thank the hospitalist physicians for asking our advice regarding her care. BARBER RODRIGES MD CM:PNTRANS [id number] BARBER RODRIGES MD 01/26/17 1609 interface
--- NOTE | ~2017-01-18 | PR ---
[place], [place] PROGRESS NOTE NAME: MUSA GARCIA UNIT #: [id number] ROOM: 426 DOCTOR: BARBER RODRIGES MD BIRTHDATE: [birth year] DOS: 01/26/2017 SUBJECTIVE: The patient was seen at her bedside today, 01/26/2017, with her daughter in attendance. The patient is extremely lethargic today and did not arouse while I was in the room. Her daughter tells me that she has been asleep "all day" and barely wakes up to eat. Even at that, she only eats very small quantities. She is apparently very upset over the fact that she has to have thickened fluids. She is breathing easily and does not appear at all uncomfortable; however, she is quite lethargic. PHYSICAL EXAMINATION: VITAL SIGNS: Today, her pulse is 67 and regular, blood pressure is 146/53. She is afebrile. NECK: Supple. She has no jugular distention. Carotids are full without bruits. LUNGS: Respirations are unlabored. Her chest is clear. HEART: Has a regular rhythm. She has a fourth heart sound, but no third heart sound or murmur. ABDOMEN: Obese, but otherwise benign. EXTREMITIES: Showed trace edema at the ankles. IMPRESSION: 1. Atherosclerotic heart disease. 2. Paroxysmal atrial fibrillation, controlled with amiodarone. 3. Acute on chronic diastolic heart failure, currently compensated. 4. Hypertension. 5. Type 2 diabetes mellitus. 6. Chronic renal insufficiency. PLAN: The etiology of the patient's lethargy is not clear to me. The patient's daughter is quite concerned over the fact that her mother appears to be slipping. She asked me if the patient would be allowed to pick her own food preferences since she is eating almost nothing at this time. I changed her diet to a general diet and told the patient's daughter that she could bring in whatever the patient wants to eat as long as we can thicken any fluids that she receives. We will continue to follow her with her other physicians. At this point, she does appear to be stable from a cardiac standpoint. [place], [place] PROGRESS NOTE NAME: MUSA GARCIA UNIT #: [id number] ROOM: 426 DOCTOR: BARBER RODRIGES MD BIRTHDATE: [birth year] BARBER RODRIGES MD CM:PNTRANS [id number] BARBER RODRIGES MD 01/27/17218 interface
--- NOTE | ~2017-01-18 | PROC NOTE ---
[place], [place] PROCEDURE NOTE [id number] UN[facility] #: [id number] ROOM: 426 DOCTOR: FRIDA ALEJO BIRTHDATE: [birth year] DOS: 01/20/2017 LOCATION: [facility]. Unvd123, bed 1. ORDERING PHYSICIAN: Dr. Dwight Titus. RADIOLOGIST: Dr. Delgado. BACKGROUND INFORMATION: The patient, an 81-year-old female, was seen for modified barium swallow. This test was ordered to rule out aspiration. This patient was admitted from the long term with shortness of breath. MEDICAL HISTORY: Significant for CHF, hypertension, CAD, DM, GERD, AFib, VT, neuropathy, 6 cardiac stents and acute herpes zoster. Chest x-ray is significant for left lower lobe atelectasis and/or infiltrate. The patient currently receives a regular diet and thin liquids. For today's assessment, she was alert and able to participate during the assessment. She reported Globus occurring with foods. She stated that she also has been suffering from increased mucus which she is having difficulty clearing or swallowing. She was unsure how long these problems have been occurring. Patient was receiving oxygen by nasal cannula during the assessment. Oral peripheral examination revealed presence of upper and lower dentures with adequate fit reported. Lingual, labial, and buccal skills were within normal limits in terms of strength, range of motion, and coordination. METHODS AND MATERIALS USED FOR THE EXAM: The patient was positioned in the lateral plane and the examination was viewed under fluoroscopy. The patient was presented with a variety of consistencies to assess swallowing skills including applesauce mixed with barium presented in half teaspoon amounts, barium-coated cookie and sandwich given in bite size pieces and thin nectar and honey-thick liquids presented by cup. The patient took small and larger sip size amount by cup. ORAL PHASE: The patient achieved adequate labial seal around cup and spoon with no anterior loss. Bolus formation and transit were within normal limits. Tongue to palate contact was within normal limits. Mastication was adequate. Tongue to posterior pharyngeal wall contact was mildly reduced with solids. Velar functioning was within normal limits with no nasal regurgitation. PHARYNGEAL PHASE: The pharyngeal swallow occurred within a timely manner. Laryngeal elevation and epiglottic function were reduced with liquid consistencies with silent penetration occurring with thin and nectar thick liquids. No aspiration was observed with any consistency. No penetration was observed with honey-thick barium or any other consistency. Pooling in the vallecula did occur with barium-coated sandwich. The patient was aware of this and stated that she felt like something was stuck. She independently swallowed again which was effective in clearing the residue. ESOPHAGEAL PHASE: This phase of the swallow was not formally assessed during this exam. [place], [place] PROCEDURE NOTE NAME: MUSA GARCIA UNIT #: [id number] ROOM: 426 DOCTOR: FRIDA ALEJO BIRTHDATE: [birth year] IMPRESSIONS AND RECOMMENDATIONS: Based upon assessment results, this 81-year-old patient presents with a mild oropharyngeal dysphagia characterized by pooling in the vallecula with solids, which cleared with re-swallow and penetration with thin and nectar liquids, which was silent. Recommend a regular diet and honey-thick liquids. Followup therapy is recommended focusing on strengthening exercises, safe swallow strategies and education to ensure safe tolerance with highest level diet. The patient was educated on results and recommendations and she verbalized understanding. The patient's nurse and family members were also educated and verbalized understanding. Thank you very much for this referral. Should you have any questions regarding this patient, please contact the speech pathologist at [phone]. FRIDA ALEJO CM:PROCNOTE:PROCEDURE NOTE [id number] FRIDA ALEJO
--- NOTE | ~2017-01-18 | CON ---
[place], [place] REPORT OF CONSULTATION NAME: MUSA GARCIA UNIT #: [id number] ROOM: 426 DOCTOR: MAXINE BAGLEY,NICKI BIRTHDATE: [birth year] DOS: 01/19/2017 REASON FOR CONSULTATION: Congestive heart failure. HISTORY OF PRESENT ILLNESS: The patient is an 81-year-old patient with history of coronary artery disease and diastolic heart failure, anemia, chronic kidney disease, was admitted for her shortness of breath as well as edema in the feet and generalized weakness. She was recently just discharged from the hospital and she was diagnosed with non-ST elevation myocardial infarction as well as CHF and medical therapy was recommended due to her chronic kidney disease. She complained of some progressive shortness of breath in the past few days as well as edema, but no chest pain, no dizziness. She is complaining of some weakness. No PND, no orthopnea. No nausea, vomiting, diarrhea, no fever or chills. No cough or hemoptysis. No neurologic symptoms. No blurry vision, double vision. No hematuria or dysuria. REVIEW OF SYSTEMS: Review of the 10 systems negative except as mentioned above. PAST MEDICAL HISTORY: 1. Coronary artery disease, status post multiple stents. The patient has a total of 6 stents. 2. Hypertension. 3. Chronic kidney disease. 4. Diabetes type 2. 5. Paroxysmal atrial fibrillation. 6. Dyslipidemia. 7. Non-morbid obesity. 8. Anxiety. 9. Gastroesophageal reflux disease. PAST SURGICAL HISTORY: 1. Cardiac stents. 2. History of cataract surgery. 3. History of cystopexy. 4. Hysterectomy. SOCIAL HISTORY: Does not drink or use illicit drugs, does not smoke. ALLERGIES: THE PATIENT IS ALLERGIC TO ACTOS. FAMILY HISTORY: Father from unknown cause. Mother, from heart and kidney problems. HOME MEDICATIONS: Reviewed. PHYSICAL EXAMINATION: VITAL SIGNS: Blood pressure 156/57, previous blood pressure was 136/48, pulse 64, respiratory rate 20. Weight is 92.5 kilograms with BMI 33.9. GENERAL: Alert, comfortable, in no acute distress. HEENT: Pupils are round and equal. No jaundice. Tongue was moist and pharynx [place], [place] REPORT OF CONSULTATION NAME: MUSA GARCIA UNIT #: [id number] ROOM: 426 DOCTOR: MAXINE BAGLEY,NICKI BIRTHDATE: [birth year] was clear. NECK: Supple, no distended neck veins, no carotid bruit. CHEST: Symmetrical, nontender. LUNGS: Diffuse scattered rhonchi, diminished at bases. HEART: Regular rhythm, no S3, grade 1/6 systolic murmur. No palpable thrills. ABDOMEN: Obese, nontender. Bowel sounds normal. EXTREMITIES: Patient has 1+ edema. Distal pulses are palpable. SKIN: Warm and dry. No cyanosis, no clubbing. NEUROLOGIC: The patient is alert, oriented. No focal neurologic deficit. RECTAL: Deferred. GENITOURINARY: Deferred. REVIEW OF THE DIAGNOSTIC TESTS: EKG, CBC, chemistry and cardiac enzymes reviewed. Pertinent labs include hemoglobin 9.3, creatinine 2.18. Hemoglobin A1c 10.2. Echo from 12/2016 showed EF of 70%. Current medications reviewed. The pertinent cardiac medications include aspirin, Plavix, amiodarone, metoprolol and Lipitor. IMPRESSION: 1. Acute on chronic diastolic heart failure. 2. Coronary artery disease status post multiple stents. 3. Hypertension. 4. Diabetes type 2. 5. Chronic kidney disease. 6. Anemia. 7. Dyslipidemia. 8. Non-morbid obesity. RECOMMENDATIONS: 1. Continue current diuretics including intravenous Bumex as well as metolazone. Monitor her daily weights and renal function as well as blood pressures. 2. Continue current cardiac medications including aspirin, Plavix, metoprolol and Lipitor and amiodarone. 3. No further cardiac testing at this time. 4. There is no family at bedside. NICKI GOODMAN MD CM:CONSTR:REPORT OF CONSULTATION 46 01/19/17 2209 interface
[~2017-01-18 11:04] MED LIST changes: +ATORVASTATIN CA80 M1 PO; +DUONEB 3 MG/3 ML3 M1 NEB; +Insulin Lispro, Reco SC; +MYCOLOG CREAM 115 GM T; +NOVOLOG FL100 UNIT/1 SQ; +PYRIDIUM200 M1 PO; +TRAD5TAB1 PO; +VITAMIN D400 I1 PO; -VITAMIN D400 IU PO; +Zaroxolyn,Diul2.5 MG PO
[2017-01-18 12:21] LABS: BASO % 0.2 % (0.0-1.0); EOS # 0.2 10*3/uL (0.0-0.4); EOS % 1.7 % (1.0-4.0); HEMOGLOBIN 9.3 g/dl (12.0-16.0); LYMPH # 0.7 10*3/uL (1.3-4.4); LYMPH % 7.1 % (27.0-41.0); MEAN CELL VOLUME 98.1 fl (81.0-99.0); MEAN CORPUSCULAR HGB 29.4 pg (27.0-31.0); MEAN PLATELET VOLUME 10.8 fl (9.6-12.3); MONO # 0.9 10*3/uL (0.1-1.0); MONO % 9.3 % (3.0-9.0); NEUT # 8.2 10*3/uL (2.3-7.9); NEUT % 80.8 % (47.0-73.0); PLATELET COUNT AUTOMATED 221 10*3/uL (130-400); RED BLOOD COUNT 3.16 10*6/uL (4.10-5.10); RED CELL DISTRI WIDTH 14.4 % (0-14.5); WHITE BLOOD COUNT 10.1 10*3/uL (4.8-10.8)
[2017-01-18 12:36] LABS: ALBUMIN 2.8 gm/dl (3.1-4.5); CREATININE 2.32 mg/dL (0.55-1.02); POTASSIUM 4.6 mmol/L (3.5-5.1); TOTAL PROTEIN 7.4 gm/dL (6.4-8.2)
[2017-01-18 12:40] LABS: BILIRUBIN NEGATIVE (NEGATIVE); BLOOD 2+ (NEGATIVE); CLARITY SL CLOUDY (CLEAR); COLOR YELLOW (YELLOW); GLUCOSE NEGATIVE (NEGATIVE); KETONE NEGATIVE (NEGATIVE); LEUKO ESTERASE 2+ (NEGATIVE); NITRITE NEGATIVE (NEGATIVE); UROBILINOGEN 0.2 E.U./dl (0.2-1.0)
[2017-01-18 12:56] LABS: BACTERIA 1+
--- NOTE | 2017-01-18 14:54 | NUR ---
A 81, admitted to , under the services of CHUY Dickey DO with a diagnosis of CHF. Chief complaint is SHORTNESS OF BREATH. Patient arrived via CART WITH RN from ER. Monitor applied. Initial assessment completed. Vital signs taken and recorded. CHUY DICKEY DO notified of admission to the unit. Orders received. See assessment for past medical history, medications and allergies. Patient and/or family oriented to unit. [facility] 4TH FLOOR visitation policy reviewed. Clothing/patient valuable form completed. ANTONI NUNEZ
[2017-01-18] MEDS ORDERED: COLACE100 MG PO (16:25)
[2017-01-18] MEDS ORDERED: LANTUS SOL100 UNIT/1 SQ (16:34)
[2017-01-18] MEDS ORDERED: HUMALOG100 UNIT/1 SQ (16:37)
[2017-01-18] MEDS ORDERED: DIABETIC T100 MG/51 PO (16:41)
[2017-01-18] MEDS ORDERED: NYSTATIN OINTME30 GM T (16:47)
--- NOTE | 2017-01-18 17:12 | NUR ---
HOME MED REQ UPDATED WITH PATIENT'S LIST FROM SNF.
--- NOTE | 2017-01-18 22:00 | NUR ---
PRN NORCO EFFECTIVE FOR PAIN RELIEF. PT RESTING QUIETLY IN BED WITH EYES CLOSED.
[2017-01-19] VITALS: BP 133/48
--- NOTE | 2017-01-19 04:45 | NUR ---
24 HR chart check completed.
[2017-01-19 06:08] LABS: BASO % 0.3 % (0.0-1.0); EOS # 0.2 10*3/uL (0.0-0.4); EOS % 2.8 % (1.0-4.0); HEMATOCRIT 30.4 % (37.0-47.0); HEMOGLOBIN 9.3 g/dl (12.0-16.0); LYMPH # 0.6 10*3/uL (1.3-4.4); MEAN CELL VOLUME 98.4 fl (81.0-99.0); MEAN CORPUSCULAR HGB 30.1 pg (27.0-31.0); MEAN CORPUSCULAR HGB CONC 30.6 g/dl (33.0-37.0); MEAN PLATELET VOLUME 10.5 fl (9.6-12.3); MONO # 0.8 10*3/uL (0.1-1.0); MONO % 9.8 % (3.0-9.0); NEUT # 6.2 10*3/uL (2.3-7.9); NEUT % 79.5 % (47.0-73.0); PLATELET COUNT AUTOMATED 209 10*3/uL (130-400); RED BLOOD COUNT 3.09 10*6/uL (4.10-5.10); RED CELL DISTRI WIDTH 14.4 % (0-14.5); WHITE BLOOD COUNT 7.8 10*3/uL (4.8-10.8)
[2017-01-19 06:37] LABS: ALBUMIN 2.7 gm/dl (3.1-4.5); MAGNESIUM 3.1 mg/dL (1.5-2.1); POTASSIUM 4.2 mmol/L (3.5-5.1)
[2017-01-19 06:41] LABS: CREATININE 2.18 mg/dL (0.55-1.02); TOTAL PROTEIN 6.9 gm/dL (6.4-8.2)
[2017-01-19 06:48] LABS: ACT PARTIAL THROMBO TIME 26.9 SECONDS (20.8-31.5)
--- NOTE | 2017-01-19 07:49 | NUR ---
NOTIFIED DR GOODMAN OF NEW CONSULT FOR CHF PER PT REQUEST ALSO.
--- NOTE | 2017-01-19 07:54 | NUR ---
24 HR chart check completed.
[2017-01-19 08:00] VITALS: BP 156/57
--- NOTE | 2017-01-19 08:47 | NUR ---
NORCO 5/325 MG GIVEN FOR C/O GENERALIZED BACK PAIN,02/04.
--- NOTE | 2017-01-19 08:50 | NUR ---
SPOKE TO DR GOODMAN R/T CONSULT, HE WILL SEE PT TODAY.
[2017-01-19 12:00] VITALS: BP 150/50
[2017-01-19 16:00] VITALS: BP 152/64
[2017-01-19 20:00] VITALS: BP 153/65
--- NOTE | 2017-01-19 20:00 | NUR ---
PT APPEARS MORE LETHARGIC THAN USUAL. VSS. O2 VIA NC INTACT. PT STATES SHE FEELS CONFUSED. SHE STATES THAT SHE WAS UNSURE WHERE SHE WAS WHEN I AWOKE HER. WILL CONT. TO MONITOR. CALL LIGHT IN REACH. BED ALARM ON.
[2017-01-20] VITALS: BP 133/56
--- NOTE | 2017-01-20 01:19 | NUR ---
24 HR chart check completed.
--- NOTE | 2017-01-20 05:50 | NUR ---
PT CO2 YESTERDAY WAS 35. PT MORE LETHARGIC AND HAS INCREASED CONFUSION. WOULD YOU CONSIDER DR. CANNON CONSULT OR PLACING PT ON BIPAP? RESPS HAVE BEEN LABORED WITH ABD BREATHING. SATS IN MID 90'S ON 2LNC. THANK YOU.
--- NOTE | 2017-01-20 05:58 | NUR ---
PT HAS INCREASED LETHARGY AND CONFUSION. LABORED RESPS WITH ABD BREATHING. SATS IN MID 90'S ON 3LNC O2. CO2 YESTERDAY WAS 35. WOULD YOU CONSIDER DR. CANNON CONSULT OR BIPAP? THANK YOU.
[2017-01-20 06:18] LABS: BASO % 0.3 % (0.0-1.0); EOS # 0.2 10*3/uL (0.0-0.4); EOS % 2.9 % (1.0-4.0); HEMATOCRIT 28.6 % (37.0-47.0); HEMOGLOBIN 8.9 g/dl (12.0-16.0); LYMPH # 0.8 10*3/uL (1.3-4.4); LYMPH % 11.7 % (27.0-41.0); MEAN CELL VOLUME 97.6 fl (81.0-99.0); MEAN CORPUSCULAR HGB 30.4 pg (27.0-31.0); MEAN CORPUSCULAR HGB CONC 31.1 g/dl (33.0-37.0); MEAN PLATELET VOLUME 10.8 fl (9.6-12.3); MONO # 0.9 10*3/uL (0.1-1.0); NEUT # 4.9 10*3/uL (2.3-7.9); NEUT % 71.5 % (47.0-73.0); PLATELET COUNT AUTOMATED 214 10*3/uL (130-400); RED BLOOD COUNT 2.93 10*6/uL (4.10-5.10); RED CELL DISTRI WIDTH 14.2 % (0-14.5); WHITE BLOOD COUNT 6.9 10*3/uL (4.8-10.8)
[2017-01-20 06:40] LABS: ALBUMIN 2.5 gm/dl (3.1-4.5); CREATININE 2.03 mg/dL (0.55-1.02); POTASSIUM 4.4 mmol/L (3.5-5.1)
[2017-01-20 08:00] VITALS: BP 150/54
--- NOTE | 2017-01-20 10:17 | NUR ---
SPEECH PATHOLOGY MBS completed as per orders. Patient displayed a mild oropharyngeal dysphagia characterized by pooling in the valleculae with solids, which cleared with reswallow and penetration with thin and nectar liquids, which was silent. Recommend regular diet and honey thick liquids. Follow up therapy is recommended focusing on strengthening exercises, strategies and miryam. to ensure safety with highest level diet. Patient was educated on results and miryam. and verbalized understanding. Will speak with patient's nurse and post strategies at bedside. Dictated report to follow. Thank you for this referral. FRIDA ALEJO MS[employer]-GRADES 9 THRU 12 VISITING TEACHER
[2017-01-20 12:00] VITALS: BP 130/72
--- NOTE | 2017-01-20 14:03 | NUR ---
Patient is currently skilled at [facility]. Sandy Boucher stated patient is ok to return when medically stable for discharge.
[2017-01-20 16:00] VITALS: BP 139/51
--- NOTE | 2017-01-20 19:08 | NUR ---
TOOK DUTY TO NURSE THIS PT BACK TO HEALTH.
[2017-01-20 20:00] VITALS: BP 122/54
--- NOTE | 2017-01-20 20:00 | NUR ---
ASSUMED CARE OF PATIENT. ASSESSMENT COMPLETE. RESTING IN BED. CALL LIGHT IN REACH. BED ALARM ON. WILL CONTINUE TO MONITOR.
--- NOTE | 2017-01-20 22:00 | NUR ---
PT REASSESED FOR SYMPTOMS OF HYPOGLYCEMIA. PT'S SKIN IS DRY, NO SIGN OF SHAKING, NON LABORED BREATHING, CALL LIGHT IN REACH. WILL CONTINUE TO MONITOR.
[2017-01-21] VITALS: BP 136/52
--- NOTE | 2017-01-21 02:00 | NUR ---
SLEEPING, RESP EASY AND NONLABORED, O2 INTACT VIA 3L NC. NO DISTRESS NOTED. CM INTACT. BED ALARM ON. CALL LIGHT IN REACH. WILL CONTINUE TO MONITOR.
--- NOTE | 2017-01-21 03:02 | NUR ---
MEDICATED WITH PRN NORCO FOR C/O BACK PAIN. WILL MONITOR FOR EFFECTIVENESS
--- NOTE | 2017-01-21 04:00 | NUR ---
SLEEPING. EARLIER MEDICATION APPEARS TO BE EFFECTIVE. NO DISTRESS NOTED
--- NOTE | 2017-01-21 06:00 | NUR ---
PER BUILT IN BED SCALE PT HAD 5 LB WEIGHT GAIN. HERE FOR CHF, CRACKLES AND EDEMA NOTED. MADE AWARE. HE STATES HE WILL PASS THIS ON TO THE DAY TEAM.
[2017-01-21 08:00] VITALS: BP 133/48
--- NOTE | 2017-01-21 08:48 | NUR ---
SPEECH PATHOLOGY Patient was seen for treatment this am. Patient was just starting to eat breakfast when clinician arrived. Student nurse was present with patient. She was sitting upright in bed. She remains weak and easily SOB. She was wearing o2 via NC. Reviewed with patient and student nurse recommendation and reasoning for liquids thickened to honey consistency. Clinician thickened to honey consistency for demonstration. Patient consumed cup via straw. She was fed by clinician as she was having difficulty with self feeding due to weakness and tremors. No overt difficulty was displayed. Safe swallow miryam. which are at bedside were reviewed as well. Patient and her nurse verbalized understanding of information provided. Recommend patient remain on present diet. Continue therapy plan. FRIDA ALEJO MSCCC-DRAIN CLEANER
[2017-01-21 08:57] LABS: BASO % 0.4 % (0.0-1.0); EOS # 0.2 10*3/uL (0.0-0.4); EOS % 3.6 % (1.0-4.0); HEMATOCRIT 31.3 % (37.0-47.0); HEMOGLOBIN 9.6 g/dl (12.0-16.0); LYMPH # 0.7 10*3/uL (1.3-4.4); LYMPH % 9.8 % (27.0-41.0); MEAN CELL VOLUME 97.8 fl (81.0-99.0); MEAN CORPUSCULAR HGB CONC 30.7 g/dl (33.0-37.0); MEAN PLATELET VOLUME 10.8 fl (9.6-12.3); MONO # 0.8 10*3/uL (0.1-1.0); MONO % 11.7 % (3.0-9.0); NEUT % 74.1 % (47.0-73.0); PLATELET COUNT AUTOMATED 221 10*3/uL (130-400); WHITE BLOOD COUNT 6.8 10*3/uL (4.8-10.8)
[2017-01-21 09:12] LABS: ALBUMIN 2.6 gm/dl (3.1-4.5); CREATININE 2.15 mg/dL (0.55-1.02); POTASSIUM 4.7 mmol/L (3.5-5.1); TOTAL PROTEIN 7.5 gm/dL (6.4-8.2)
[2017-01-21 12:00] VITALS: BP 124/45
[2017-01-21 16:00] VITALS: BP 136/62
[2017-01-21 20:00] VITALS: BP 146/56
[2017-01-22] VITALS: BP 152/56
--- NOTE | 2017-01-22 | NUR ---
Patient resting quietly with no c/o discomfort. Respirations easy and regular. Vital signs stable. No overt distress. STEVEN AMARAL
--- NOTE | 2017-01-22 03:08 | NUR ---
24 HR chart check completed.
--- NOTE | 2017-01-22 04:00 | NUR ---
Patient resting quietly with no c/o discomfort. Respirations easy and regular. Vital signs stable. No overt distress. STEVEN AMARAL
--- NOTE | 2017-01-22 06:26 | NUR ---
MEDICATED WITH PO NORCO ORDERED PER PT REQUEST FOR C/O CHRONIC BACK PAIN RATED 5/10. PT IS NOW UP IN CHAIR.
[2017-01-22 07:31] LABS: BASO % 0.4 % (0.0-1.0); EOS # 0.2 10*3/uL (0.0-0.4); EOS % 3.3 % (1.0-4.0); HEMATOCRIT 30.6 % (37.0-47.0); HEMOGLOBIN 9.3 g/dl (12.0-16.0); LYMPH # 0.6 10*3/uL (1.3-4.4); LYMPH % 8.2 % (27.0-41.0); MEAN CELL VOLUME 97.5 fl (81.0-99.0); MEAN CORPUSCULAR HGB 29.6 pg (27.0-31.0); MEAN CORPUSCULAR HGB CONC 30.4 g/dl (33.0-37.0); MEAN PLATELET VOLUME 10.9 fl (9.6-12.3); MONO # 0.7 10*3/uL (0.1-1.0); MONO % 9.3 % (3.0-9.0); NEUT # 5.6 10*3/uL (2.3-7.9); NEUT % 78.5 % (47.0-73.0); PLATELET COUNT AUTOMATED 219 10*3/uL (130-400); RED BLOOD COUNT 3.14 10*6/uL (4.10-5.10); WHITE BLOOD COUNT 7.1 10*3/uL (4.8-10.8)
[2017-01-22 08:00] VITALS: BP 130/62
[2017-01-22 08:10] LABS: CREATININE 2.12 mg/dL (0.55-1.02); POTASSIUM 4.2 mmol/L (3.5-5.1)
--- NOTE | 2017-01-22 08:30 | NUR ---
SPEECH PATHOLOGY Patient was seen for treatment this am. Patient was sitting upright in bedside chair. Significant generalized weakness remains as well as SOB. Patient was attentive and cooperative for tasks. She was educated on pharyngeal exercises to strengthen swallowing musculature. These were demonstrated by clinician. Patient performed the exercises with moderate weakness displayed. She was encouraged to practice them independently throughout the day. Discussed with patient recommendation for continuation of current diet with honey thick liquids for safety, as she remains significantly weak and with high risk for aspiration. Patient verbalized understanding of information provided. Continue therapy plan to ensure safe tolerance of highest level diet. FRIDA ALEJO MSCCC-DEPUTY CLERK OF COURT
[2017-01-22 12:00] VITALS: BP 112/54
[2017-01-22 16:00] VITALS: BP 126/52
[2017-01-22 20:00] VITALS: BP 157/57
[2017-01-23] VITALS: BP 149/48
--- NOTE | 2017-01-23 03:16 | NUR ---
PATIENT SLEEPING AT THIS TIME. NO DISTRESS NOTED, NO CONCERNS AT THIS TIME.
[2017-01-23 08:00] VITALS: BP 138/55
--- NOTE | 2017-01-23 09:20 | NUR ---
SPEECH PATHOLOGY Patient was seen for treatment this am. Patient was upright in chair and reported she is feeling no better, that she is not breathing better and is still swollen. Generalized weakness remains. She was able to recall 2/3 pharyngeal exercises. She performed exercises with cue and model. Moderate weakness was displayed. Physician arrived to examine patient and discuss her progress and plan as patient had multiple questions for him. Recommend patient remain on current diet. Continue therapy plan. FRIDA ALEJO MSCCC-AEROLOGIST
[2017-01-23 10:01] LABS: CREATININE 2.38 mg/dL (0.55-1.02); POTASSIUM 4.8 mmol/L (3.5-5.1)
[2017-01-23 12:00] VITALS: BP 129/62
[2017-01-23 16:00] VITALS: BP 142/60
[2017-01-23 20:00] VITALS: BP 128/52
[2017-01-24] VITALS: BP 148/57
--- NOTE | 2017-01-24 00:25 | NUR ---
PT C/O BACK PAIN REQUESTED AND ADMINISTERED NORCO PO PRN PER ORDERS WILL MONITOR EFFECTS
--- NOTE | 2017-01-24 01:53 | NUR ---
PRN NORCO EFFECTIVE AT THIS TIME, PT RESTING IN BED WITH EYES CLOSED RESPS EASY AND NONLABORED WITH NO S/S OF DISTRESS CALL LIGHT WITH IN REACH
--- NOTE | 2017-01-24 04:35 | NUR ---
PT RESTING IN BED WITH EYES CLOSED RESPS EASY ADN NONLABORED WITH NO S/S OF DISTRESS CALL LIGHT WITH IN REACH
[2017-01-24 05:14] LABS: ALBUMIN 2.5 gm/dl (3.1-4.5); CREATININE 2.32 mg/dL (0.55-1.02); MAGNESIUM 3.2 mg/dL (1.5-2.1); POTASSIUM 4.6 mmol/L (3.5-5.1)
[2017-01-24 08:00] VITALS: BP 146/48
--- NOTE | 2017-01-24 10:49 | NUR ---
Patient can return skilled to [facility] in [place] when medically stable.
--- NOTE | 2017-01-24 11:19 | NUR ---
SPEECH PATHOLOGY Patient was seen for treatment this am. She was sitting upright in bedside chair, alert and cooperative. Generalized weakness remains but patient appeared to be less SOB when talking today. Patient expressed dislike of thick liquids and was reminded of need for and benefit of thick liquid for safety. Pharyngeal exercises were performed with mild-moderate cues to ensure correct technique. Additional exercise was added. Patient reported that she has been doing some of the exercises on her own and it was recommended that she continue independent practice. Continue therapy plan. FRIDA ALEJO MSCCC-REGISTERED RESPIRATORY TECHNICIAN
[2017-01-24 12:00] VITALS: BP 137/88
[2017-01-24 16:00] VITALS: BP 151/52
[2017-01-24 20:00] VITALS: BP 143/53
[2017-01-25] VITALS: BP 134/48
--- NOTE | 2017-01-25 02:52 | NUR ---
24 HR chart check completed.
[2017-01-25 06:46] LABS: BASO % 0.4 % (0.0-1.0); EOS # 0.3 10*3/uL (0.0-0.4); EOS % 3.4 % (1.0-4.0); HEMATOCRIT 29.7 % (37.0-47.0); HEMOGLOBIN 9.1 g/dl (12.0-16.0); LYMPH # 0.7 10*3/uL (1.3-4.4); LYMPH % 9.1 % (27.0-41.0); MEAN CELL VOLUME 97.4 fl (81.0-99.0); MEAN CORPUSCULAR HGB 29.8 pg (27.0-31.0); MEAN CORPUSCULAR HGB CONC 30.6 g/dl (33.0-37.0); MONO # 0.6 10*3/uL (0.1-1.0); MONO % 7.1 % (3.0-9.0); NEUT # 6.4 10*3/uL (2.3-7.9); NEUT % 78.9 % (47.0-73.0); PLATELET COUNT AUTOMATED 221 10*3/uL (130-400); RED BLOOD COUNT 3.05 10*6/uL (4.10-5.10); RED CELL DISTRI WIDTH 13.6 % (0-14.5); WHITE BLOOD COUNT 8.2 10*3/uL (4.8-10.8)
[2017-01-25 06:50] LABS: CREATININE 2.09 mg/dL (0.55-1.02); POTASSIUM 4.4 mmol/L (3.5-5.1)
[2017-01-25 08:00] VITALS: BP 144/48
[2017-01-25 12:00] VITALS: BP 148/47
[2017-01-25 16:00] VITALS: BP 136/52
--- NOTE | 2017-01-25 18:30 | NUR ---
PT STATES THAT NORCO WAS EFFECTIVE FOR PAIN RELIEF.
[2017-01-25 20:00] VITALS: BP 139/57
[2017-01-26] VITALS: BP 115/47
--- NOTE | 2017-01-26 01:36 | NUR ---
24 HR chart check completed.
[2017-01-26 04:00] VITALS: BP 140/54
[2017-01-26 06:56] LABS: CREATININE 2.42 mg/dL (0.55-1.02); POTASSIUM 4.6 mmol/L (3.5-5.1)
[2017-01-26 08:00] VITALS: BP 142/64
[2017-01-26 12:00] VITALS: BP 146/53
[2017-01-26 16:00] VITALS: BP 134/46
--- NOTE | 2017-01-26 18:36 | NUR ---
Shift chart check completed.
[2017-01-26 20:00] VITALS: BP 158/66
[2017-01-27] VITALS: BP 134/61
--- NOTE | 2017-01-27 02:19 | NUR ---
24 HR chart check completed.
[2017-01-27 04:00] VITALS: BP 136/64
[2017-01-27 05:53] LABS: BASO % 0.3 % (0.0-1.0); EOS # 0.2 10*3/uL (0.0-0.4); EOS % 2.1 % (1.0-4.0); HEMATOCRIT 28.1 % (37.0-47.0); HEMOGLOBIN 8.5 g/dl (12.0-16.0); LYMPH # 0.7 10*3/uL (1.3-4.4); LYMPH % 6.7 % (27.0-41.0); MEAN CELL VOLUME 96.2 fl (81.0-99.0); MEAN CORPUSCULAR HGB 29.1 pg (27.0-31.0); MEAN CORPUSCULAR HGB CONC 30.2 g/dl (33.0-37.0); MONO # 0.7 10*3/uL (0.1-1.0); MONO % 6.9 % (3.0-9.0); NEUT # 8.2 10*3/uL (2.3-7.9); NEUT % 83.8 % (47.0-73.0); PLATELET COUNT AUTOMATED 220 10*3/uL (130-400); RED BLOOD COUNT 2.92 10*6/uL (4.10-5.10); RED CELL DISTRI WIDTH 13.9 % (0-14.5); WHITE BLOOD COUNT 9.7 10*3/uL (4.8-10.8)
[2017-01-27 06:04] LABS: ALBUMIN 2.3 gm/dl (3.1-4.5); CREATININE 2.19 mg/dL (0.55-1.02); MAGNESIUM 2.9 mg/dL (1.5-2.1); POTASSIUM 4.3 mmol/L (3.5-5.1); TOTAL PROTEIN 6.9 gm/dL (6.4-8.2)
[2017-01-27 08:00] VITALS: BP 140/60
--- NOTE | 2017-01-27 08:56 | NUR ---
SPEECH PATHOLOGY Patient was seen for treatment this am. Patient was sitting upright in bed. She remains with generalized weakness and SOB with minimal exertion. Patient again verbalized her dislike of honey thick liquids. Need and reasoning for them was explained again as well as plan to upgrade as appropriate. Clinician explained that since patient remains so weak, continued miryam. for honey thick liquid remains but that a trial with nectar liquid could be conducted today. Patient was very pleased with this. She took sips of nectar liquid by spoon and was able to perform effortful swallow exercise during the trial. She also took sips of nectar liquid by cup. Cough was noted post trial. Recommend she remain on honey thick liquid at this time for safety however as her status permits, trials with nectar liquid during therapy will continue in an attempt to improve her tolerance so she can eventually upgrade. During treatment today patient also performed gargling and falsetto exercises. Good effort was displayed but moderate weakness was noted during exercises. Continue therapy plan. FRIDA ALEJO MSCCC-OIL PIPELINE DISPATCHER
--- NOTE | 2017-01-27 09:29 | NUR ---
PATIENT RESTING IN BED WATCHING TELEVISION. PATIENT DENIES ANY PAIN OR DISCOMFORT AT THIS TIME. PATIENT HAD DIMINISHED LUNG SOUND THROUGHOUT BILATERALLY, BUT WAS NOT SHORT OF BREATHE. WILL CONTINUE TO MONITOR PATIENT FOR SXS OF DYSPNEA. PATIENT WAS REORIENTED TO THE ROOM, CALL LIGHT IS WITHIN REACH
--- NOTE | 2017-01-27 09:52 | NUR ---
PHYSICAL THERAPY PAtient evaluated on 4, full evaluation to follow. Continue with PT as per plan of care with fall, max (A), 02 and acute debility precautions. Will require SNF for impaired mobility in order to return to PLOF. PAtient is moderate complexity via chart review, tests and evaluation: [id number]. Thank you for this referral. Mirlande villa,PT
[2017-01-27 12:00] VITALS: BP 166/65
--- NOTE | 2017-01-27 14:51 | NUR ---
PATIENT WAS GIVEN PRN VISTARIL PER PATIENT REQUEST. WILL CONTINUE TO MONITOR PATIENT AND MAINTAIN COMFORT.
[2017-01-27 16:00] VITALS: BP 149/65
[2017-01-27 20:00] VITALS: BP 150/55
--- NOTE | 2017-01-27 22:00 | NUR ---
BLOOD SUGAR 358; COVERAGE GIVEN PER EMAR.
[2017-01-28] VITALS: BP 140/50
--- NOTE | 2017-01-28 03:28 | NUR ---
24HR. CHART CHECK COMPLETE.
--- NOTE | 2017-01-28 05:26 | NUR ---
PRN NORCO GIVEN TO PT. FOR BACK PAIN RATING IT A 9/10. WILL CONTINUE TO MONITOR.
--- NOTE | 2017-01-28 05:56 | NUR ---
PRN NORCO SEEMS TO BE EFFECTIVE, PT. IS RESTING IN CHAIR AT THIS TIME. RESPIRATIONS ARE EASY AND NONLABORED WITH CALL LIGHT IN REACH.
--- NOTE | 2017-01-28 06:00 | NUR ---
PT. UP TO CHAIR THIS MORNING, REFUSING TO BE TRANSFERED BACK TO BED TO BE WEIGHED.
[2017-01-28 06:35] LABS: ALBUMIN 2.5 gm/dl (3.1-4.5); CREATININE 2.19 mg/dL (0.55-1.02); POTASSIUM 3.9 mmol/L (3.5-5.1); TOTAL PROTEIN 7.3 gm/dL (6.4-8.2)
[2017-01-28 06:40] LABS: BASO % 0.3 % (0.0-1.0); EOS # 0.2 10*3/uL (0.0-0.4); EOS % 2.6 % (1.0-4.0); HEMATOCRIT 31.5 % (37.0-47.0); HEMOGLOBIN 9.5 g/dl (12.0-16.0); LYMPH % 11.1 % (27.0-41.0); MEAN CELL VOLUME 97.5 fl (81.0-99.0); MEAN CORPUSCULAR HGB 29.4 pg (27.0-31.0); MEAN CORPUSCULAR HGB CONC 30.2 g/dl (33.0-37.0); MEAN PLATELET VOLUME 11.1 fl (9.6-12.3); MONO # 0.7 10*3/uL (0.1-1.0); MONO % 8.2 % (3.0-9.0); NEUT % 77.5 % (47.0-73.0); PLATELET COUNT AUTOMATED 227 10*3/uL (130-400); RED BLOOD COUNT 3.23 10*6/uL (4.10-5.10); WHITE BLOOD COUNT 9.1 10*3/uL (4.8-10.8)
[2017-01-28 08:00] VITALS: BP 115/41
--- NOTE | 2017-01-28 08:57 | NUR ---
SPEECH PATHOLOGY Patient was seen for treatment this am. Patient was sitting upright in chair being fed breakfast by her daughter. Patient remains very weak. Patient consumed a variety of food and thick liquid items with no overt difficulties. Patient again questioned thickened liquids and it was explained that she is recommended to remain on honey thick liquids for safety. Patient was trialed yesterday with nectar thick liquid during treatment to help build tolerance. Will continue with trials and eventually complete a repeat MBS when status improves, in order to assess radiographically if she can tolerate an upgrade in her liquids, however at this time patient has shown no improvement in her strength and respiratory skills. Patient performed pharyngeal exercises after breakfast, again making an effort but with skills extremely weak. Continue therapy plan. FRIDA ALEJO MSCCC-SPECIALIZED DEVELOPER
[2017-01-28 09:45] VITALS: BP 118/52
--- NOTE | 2017-01-28 10:14 | NUR ---
PHYSICAL THERAPY Kiera seen this AM and was up in her bedside chair. She said that it took two to get her in her chair and right now she just wanted to stay sitting and not nadeem up. DONNELL FERNANDEZ SUPERVISOR CALIBRATION.
[2017-01-28 12:00] VITALS: BP 142/46
[2017-01-28] MEDS ORDERED: NORCO 10-325 T1 EACH PO (12:06)
--- NOTE | 2017-01-28 13:32 | NUR ---
PHYSICAL THERAPY Patient was supine in bed upon therapist arrival for pm therapy visit and seen 1:1 with continuos O2-2L via NC. Patient reports feeling tired with generalized weakness and transfers supine to sit EOB Max A x 1. Patient required v/c for encouragement to tolerate < 5 minutes EOB sit, CGA x 1 and declined therapist request for sit to stand transfer. Patient returned to supine in bed and remained with call light, B heel protectors and bed alarm for safety. Total treatment time 14 minutes and will continue as tolerated to improve functional transfers and mobility. Preston Bob, ELECTRONIC PARTS DESIGNER
--- NOTE | 2017-01-28 13:56 | NUR ---
Patient is being discharged back to [facility], [facility] NH, nursing and family notified.
--- NOTE | 2017-01-28 15:30 | NUR ---
REMOVED SOSA CATHETER, ROCKET PROPELLANT PLANT SUPERVISOR, AND IV HEPLOCK IN PREPARATION FOR DISCHARGE TO [facility]. PATIENT TOLERATED WELL, EMPTIED 200ML CLOUDY YELLOW URINE FROM SOSA DRAINAGE BAG.
--- NOTE | 2017-01-28 16:04 | NUR ---
PATIENT DISCHARGED TO [facility] BY AMBULANCE SERVICE. REPORT CALLED TO [facility]CE[facility]ING [facility].
--- NOTE | 2017-01-30 08:06 | NUR ---
PHYSICAL THERAPY CO-SIGN I approve of the Phyical Therapy notes written above. TIEN PAN PT
== END 2017-01-28 16:04 | disposition home or self-care (01) | DRG 280 ==
LOC: ED 11:04 → 4E 13:50
PROVIDERS: Emergency Medicine; Family Medicine; Internal Medicine; Internal Medicine Hospice and Palliative Medicine; Internal Medicine Nephrology; ADMIT Internal Medicine
PROC: BD11YZZ Fluoroscopy of Esophagus using Other Contrast (ICD-10-PCS; principal; 2017-01-21)
DX: I13.0 Hypertensive heart and chronic kidney disease with heart failure and stage 1 through stage 4 chronic kidney disease, or unspecified chronic kidney disease (principal); I50.33 Acute on chronic diastolic (congestive) heart failure; I21.4 Non-ST elevation (NSTEMI) myocardial infarction; E43 Unspecified severe protein-calorie malnutrition; J18.9 Pneumonia, unspecified organism; N18.4 Chronic kidney disease, stage 4 (severe); D68.59 Other primary thrombophilia; J44.0 Chronic obstructive pulmonary disease with (acute) lower respiratory infection; E11.22 Type 2 diabetes mellitus with diabetic chronic kidney disease; N39.0 Urinary tract infection, site not specified; I48.0 Paroxysmal atrial fibrillation; E83.41 Hypermagnesemia; E66.01 Morbid (severe) obesity due to excess calories; E83.39 Other disorders of phosphorus metabolism; F41.1 Generalized anxiety disorder; E78.00 Pure hypercholesterolemia, unspecified; I25.10 Atherosclerotic heart disease of native coronary artery without angina pectoris; K21.9 Gastro-esophageal reflux disease without esophagitis; N32.89 Other specified disorders of bladder; R07.89 Other chest pain; D50.9 Iron deficiency anemia, unspecified; Z79.4 Long term (current) use of insulin; Z88.8 Allergy status to other drugs, medicaments and biological substances; Z79.899 Other long term (current) drug therapy; Z79.82 Long term (current) use of aspirin; Z90.710 Acquired absence of both cervix and uterus; Z98.41 Cataract extraction status, right eye; Z98.42 Cataract extraction status, left eye; Z95.5 Presence of coronary angioplasty implant and graft; Z82.49 Family history of ischemic heart disease and other diseases of the circulatory system; Z82.3 Family history of stroke; Z83.3 Family history of diabetes mellitus; Z84.1 Family history of disorders of kidney and ureter; Z68.35 Body mass index [BMI] 35.0-35.9, adult

== ENCOUNTER 2017-01-31 19:14 | Inpatient (IN) | payer MEDICARE, OTHER ==
[~2017-01-31] VITALS: Ht 162.6 cm; Wt 90.3 kg
--- NOTE | ~2017-01-31 | O ---
[place], [place] OPERATIVE NOTE NAME: MUSA GARCIA UNIT #: [id number] ROOM: 421 DOCTOR: GLORIA BAGLEY,CADY BIRTHDATE: [birth year] DOS: GASTRO-ENDOSCOPIC REPORT REPORT #1 HISTORY OF PRESENT ILLNESS: The patient has presented with chief complaint of epigastric distress, dysphagia, dyspepsia, anemia, drop in H and H, status post transfusion. PROCEDURE: Today's procedure part of investigation is panendoscopy and colonoscopy. PREMEDICATION: Versed and Diprivan. SCOPE: Olympus forward-viewing gastroscope Q10 video. REPORT: After putting the patient in the left lateral position and after application of lubricant to the scope, the scope was introduced. Thereafter, under direct visualization, I advanced through the length of esophagus without difficulty. Esophagus, cervicothoracic distally carefully examined. Evidence of esophageal moniliasis was appreciated. [place] for fungal study was undertaken. Gastric pouch was entered. Gastritis seen. Gastric bezoar was identified. Multiple antral small ulcerations identified. These were secondary to aspirin. Duodenal bulb, second and third part within normal limits. The patient extubated after antral biopsy was obtained, tolerated the procedure well. IMPRESSION: 1. Multiple small antral ulceration secondary to aspirin. These are small and in view of the presence of Plavix, they could have bled and therefore anemia of microcytic indices. 2. 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 3. Presence of esophageal moniliasis, which is going to be addressed with Diflucan 100 mg daily and that is going to be adjusted for renal insufficiency with GFR of 33. Therefore, 100 mg is going to be adjusted every other day since she is a diabetic, she is having renal failure. On the other hand, she is going to continue with Protonix therapy. She is going to be placed on full liquid diet until her bezoar is resolved in next couple of days. 4. We are going to proceed with colonoscopy. Thank you very much indeed. INDICATIONS: The patient has presented with abdominal pain, cramp, anemia, undergoing investigation. PROCEDURE: Today's procedure part of investigation is colonoscopy plus biopsy and photographic series. PREMEDICATION: Versed and Diprivan. [place], [place] OPERATIVE NOTE NAME: MUSA GARCIA UNIT #: [id number] ROOM: [facility] DOCTOR: GLORIA BAGLEY,CADY BIRTHDATE: [birth year] SCOPE: Olympus forward-viewing colonoscope 10L video. REPORT: After putting the patient in left lateral position and application of lubricant to the scope, the scope was introduced. Thereafter, under direct visualization, I advanced through the length of colon without difficulty. Evidence of pseudomembranous colitis was identified. Multiple pustules in the colon were noticed, photographed, biopsy was obtained. Scope was negotiated to the right colon, gradually withdrawn. The patient extubated, tolerated the procedure well. IMPRESSION: Advanced pseudomembranous colitis, possible etiology is Clostridium difficile colitis. Stool sample was suctioned out, although this was post-colonic prep and may be false negative; however data was collected. PLAN AND DISCUSSION: The patient is going to be started on vancomycin 250 mg p.o. q.i.d. Thank you very much indeed for your kind referral. CADY CASTRO MD CM:OPRECORD:OPERATIVE NOTE [id number] CADY CASTRO MD 02/10/171950 interface
--- NOTE | ~2017-01-31 | CON ---
[place], [place] REPORT OF CONSULTATION NAME: MUSA GARCIA UNIT #: [id number] ROOM: 421 DOCTOR: DAVIS SEVILLA MD,JANNIE BIRTHDATE: [birth year] DOS: 02/04/2017 ____ right upper lung nodule. JANNIE CANNON MD CM:CONSTR:REPORT OF CONSULTATION 1134 02/07/17 1027 PAYTON GONG MIS.R
--- NOTE | ~2017-01-31 | CON ---
[place], [place] REPORT OF CON[facility]ULTATION [id number] UNIT #: [id number] ROOM: 421 DOCTOR: DAVIS SEVILLA MDJANNIE BIRTHDATE: [birth year] DOS: 02/04/2017 PULMONARY CONSULTATION EVALUATION AND MANAGEMENT CONSULTATION REQUESTED: By the hospitalist services for the assessment of shortness of breath for this patient. HISTORY OF PRESENT ILLNESS: This is an 81-year-old white female who has been admitted under care of the hospitalist services noted in a poor historian and not able to give me any history very accurately. Most of the history has been collected from review of the documentation by the other physician note for this patient as well as the nursing notes. The patient has been hospitalized under care of hospitalist services on 02/01/2017. The patient reported symptoms of shortness breath for couple of days. The symptoms have been noted worsening. She has been recently to the hospital, treated for the pneumonia and CHF about 4 days ago. The patient was prescribed the diuretic which has not been used by the patient. She came into the hospital. She has been noted with symptoms of increased shortness of breath ongoing for the past couple of days. She has been noted with some symptoms of cough, which were described to be moderate nonproductive. She was complaining of fatigue with symptoms of chest pain, no wheezing as described by the patient. REVIEW OF SYSTEMS: Noted very limited. CONSTITUTIONAL: However, the patient was noted with fatigue. Denies symptoms of fever or chills. EYES: Denies any burning, redness, tenderness or discharge. EARS, NOSE, THROAT SYMPTOMS: No sore throat, hoarseness, otalgia, postnasal drainage. Mild senile hearing loss. CARDIOVASCULAR: Denies anginal pain noted with some edema of the lower extremities at times. GENITOURINARY: Denies dysuria, suprapubic pain, hematuria. GASTROINTESTINAL: Denies dysphagia, nausea, vomiting, diarrhea, abdominal pain, hematemesis, melena, or hematochezia. MUSCULOSKELETAL: History of degenerative arthritis without any acute pain or tenderness. CENTRAL NERVOUS SYSTEM: Decreased mobility. The patient was noted without any focal neurologic deficit. Remaining systems were reviewed with the patient, they were noted all negative. PAST MEDICAL HISTORY: 1. COPD. 2. General anxiety disorder. 3. Gastroesophageal reflux. 4. Essential hypertension. 5. Coronary artery disease with past myocardial infarction. 6. Hypercholesterolemia, negative hypercoagulable status, details unknown. 7. Type 2 diabetes mellitus. 8. History of past congestive heart failure. 9. History of frequent falls. [place], [place] REPORT OF CONSULTATION NAME: MUSA GARCIA UNIT #: [id number] ROOM: 421 DOCTOR: DAVIS SEVILLA MD,JANNIE BIRTHDATE: [birth year] 10. Impaired mobility. 11. Paroxysmal atrial fibrillation. 12. Obesity. PAST SURGICAL HISTORY: 1. Cardiac catheterization and coronary stents insertion, total of 6 stents inserted previously. 2. Cataract extraction with lens implantation. 3. Bladder repair. 4. Hysterectomy. SOCIAL HISTORY: The patient states she is , has 5 children. Denies history of alcohol use or illicit drug use. FAMILY HISTORY: Reported for myocardial infarction in the family members. MEDICATIONS: On admission were noted use of amiodarone, aspirin, amiodarone 200 mg daily, Lipitor, Plavix, ferrous sulfate, Lasix, gabapentin, Mucinex, Humalog insulin, DuoNeb, Imdur, Tradjenta, Zaroxolyn, metoprolol tartrate, Protonix, primidone, Carafate, vitamin D, and other p.r.n. medications. DRUG ALLERGIES: REPORTED ALLERGIES TO [facility]OS. PHYSICAL EXAMINATION: GENERAL: An 81-year-old female who has been currently lying on the bed without any distress. Height of 5 feet 4 inches, weight of 202 pounds, BMI 34.7. VITAL SIGNS: For the patient which were recorded shows the temperature noted normal since admission, respiratory rate 22-14, heart rate of 60-76, blood pressure 120/64 to 101/48. Intake 1240, output 1050 mL. Pulse oxygen saturation on 3.5 L nasal cannula 92% saturation. Previously on 4 liters was recorded as 94% and prior to that on the BiPAP from admission 40% oxygen saturation noted 95% on room air was noted as 88% upon arrival in the Emergency Room. HEENT: Moderate obesity. Head was atraumatic. Eyes: No icterus. NECK: Supple. CARDIOVASCULAR: S1, S2 is audible. LUNGS: With general reduction in breath sounds with scattered crackles of the lungs. There was no wheezing heard. ABDOMEN: Soft, obese, nontender. EXTREMITIES: Shows chronic obesity with mild edema. SKIN: No lesions or rashes. MUSCULOSKELETAL: No deformities. GENITOURINARY: Generalized weakness and fatigue noted, so examination could not be performed. LABORATORY DATA: Reviewed for this patient, CBC on 01/31/2017, WBC count 14.6, hemoglobin 9.4, hematocrit 31.3, platelet count 298,000. PT/INR 1.0/. On 01/31/2017, lactic acid 1.4 on admission. Ionized calcium 4.6 on admission that was normal. Influenza A and B, nasal washing antigen noted negative for influenza A and B. The CMP of 01/31/2017, BUN 54, creatinine 2.49. The CMP of [place], [place] REPORT OF CONSULTATION NAME: MUSA GARCIA UNIT #: [id number] ROOM: [facility] DOCTOR: VAMSI REBOLLEDO MDM BIRTHDATE: [birth year] the patient prior to discharge noted with BUN 55 at that time, creatinine 2.19. Arterial blood gas on admission 01/31/2017, pH of 7.36, pCO2 of 62, pO2 of 31, appeared to be venous blood gas. The repeat blood gas for patient on 40% oxygen, appeared to be the same findings. The patient on 40% oxygen does not correlate the patient to the arterial pulse oxygen saturation. The CBC of 02/01/2017, WBC count 17.7, hemoglobin 9.2, hematocrit 30.6, platelet count was normal. The arterial blood gas, which was repeated again on 02/01/2017, pH of 7.47, pCO2 of 43, pO2 of 171, 60% oxygen with the BiPAP at that time. CBC of 02/02/2017, hemoglobin 7.5, hematocrit 25.3, WBC count 12.8, platelet count remains normal ____ hemoglobin and hematocrit noted since admission. BUN was noted at 52, creatinine 2.34 on 02/02/2017. Blood culture which was taken on 01/31/2017, the patient does not show any abnormal bacterial growth isolation. CBC today, hemoglobin 7.4, hematocrit 25.2, WBC count was normal. Platelet count remains normal. BMP was noted as BUN 56, creatinine 2.51, creatinine was elevated again as in the past and followup glucose 143, CO2 was 38. RADIOLOGY DATA: Reviewed for this patient was personally performed. Chest x-ray of the patient that was done for the patient on previous admission was also reviewed as well as current chest x-ray on this admission. The chest x-ray of the patient, which was during admission in 12/2016, was reviewed with the patient. The chest x-ray of 01/18/2017 shows evidence of congestive heart failure was noted to partial include 01/19/2017 chest x-ray and 01/21/2017 was showing pleural fluid with congestive heart failure, but resolving as compared to previous chest x-rays. A chest x-ray that was done at the time of the admission, noted with acute pulmonary edema, chronic congestive heart failure with area of atelectasis in the right lung would be considered. Findings were noted marked worsening since the previous chest x-ray on 01/24/2017 comparison. The chest x-ray that was done 2 view yesterday was showing reduction of the congestive heart failure, pulmonary edema; however, the moderate size pleural fluid was suspected in the lungs bilaterally. IMPRESSION: 1. The patient who has been currently admitted to the hospital noted with recurrent congestive heart failure with pulmonary edema associated with bilateral pleural fluid secondary to congestive heart failure which is known as diastolic dysfunction in the patient with echocardiogram on 01/07/2017. Pleural fluid noted moderate size at this time; however, reduction was noted with improvement in aeration since admission partially. 2. The patient with chronic obesity as well with suspicion of obstructive sleep apnea disorder. There was no clinical evidence of suspicion of pneumonia in this patient. 3. Acute kidney injury. The patient with chronic kidney disease superimposed was noted related to congestive heart failure and decreased perfusion versus ATN or combination would be considered. The patient does not have any findings consistent with acute exacerbation of COPD or bronchial asthma at this time. 4. Acute severe hypoxic respiratory failure with chronic superimposed hypoxic respiratory failure secondary to congestive heart failure. 5. Metabolic alkalosis secondary to diuretic therapy. PLAN OF TREATMENT: Plan of management care for diuresis in patient, monitor [place], [place] REPORT OF CONSULTATION NAME: MUSA GARCIA Saleem UNIT #: [id number] ROOM: 421 DOCTOR: DAVIS SEVILLA MDJANNIE BIRTHDATE: [birth year] kidney, advised for Nephrology services assessment if not already done, bronchodilators p.r.n., symptom management. Use of the BiPAP for the patient to be continued to help improve with congestive heart failure and acute on chronic hypoxic respiratory failure management. Monitoring of the metabolic alkalosis which was noted for this patient on admission as well. Pleural fluid will be monitored closely at this time. If the pleural fluid does not resolve, certainly thoracentesis could be done with ultrasound guidance assessment. The patient was also noted with gradual anemia, etiology is unclear, was planned for blood transfusion, may need to be done slowly to prevent further fluid overload with congestive heart failure. All other supportive plan of therapy and other area development consultant's recommendation to be continued per usual care, other supportive plan of management. Additional treatment changes need to be made for this patient based on progression of the illness. DVT prophylaxis for this patient as well. Other supportive therapy, plan of management and care plan. Additional treatment changes need to be done based on progression of the illness. The patient currently receiving heparin 5000 mg subq for DVT prophylaxis. Monitor the chest x-ray. The patient with repeat chest x-ray be done in the morning for reassessment. Thanks for allowing me to participate in the care of this patient. JANNIE CANNON MD CM:CONSTR:REPORT OF CONSULTATION 1221 02/07/17 1032 interface
--- NOTE | ~2017-01-31 | PR ---
[place], [place] PROGRESS NOTE NAME: MUSA GARCIA UNIT #: [id number] ROOM: 421 DOCTOR: DAVIS SEVILLA MD,JANNIE BIRTHDATE: [birth year] DOS: 02/14/2017 SUBJECTIVE: She has been noted comfortably at this time, resting on the bed without any acute distress, oxygen supplementation continued. OBJECTIVE: VITAL SIGNS: Normal temperature, respiratory rate 18, heart rate 71, blood pressure 152/58. Pulse oxygen saturation recorded on 2 liters nasal cannula 96% saturation. HEENT: No acute change. NECK: Supple. CARDIOVASCULAR: S1, S2 audible. LUNGS: Without any wheeze or crackles. ABDOMEN: Soft, nontender. LABORATORY DATA: BMP: BUN 24, creatinine 1.46 today was noted, CO2 of 33. CBC: WBC count 11.1, hemoglobin 8.6, hematocrit 28.5, platelet count of 264,000. IMPRESSION: Stable respiratory status, progressive resolution of the congestive heart failure, acute hypoxic respiratory failure, Clostridium diff colitis, her debility remains persistent. PLAN OF TREATMENT: No changes in the plan of therapy at this time. From the pulmonary standpoint, continue with current plan of management, which was noted effective for the patient's medical management of respiratory disease. Other supportive plan of management and care. Additional treatment changes to be made based on the progression of the illness. JANNIE CANNON MD CM:PNTRANS [phone] JANNIE SEVILLA MD 02/15/17 0254 interface
--- NOTE | ~2017-01-31 | PR ---
[place], [place] PROGRESS NOTE NAME: MUSA GARCIA UNIT #: [id number] ROOM: 421 DOCTOR: DAVIS SEVILLA MD,JANNIE BIRTHDATE: [birth year] DOS: 02/06/2017 SUBJECTIVE: The patient has been noted comfortable at this time. Denies symptoms of chest pain. Denies any acute cough. Shortness of breath was still described. OBJECTIVE: VITAL SIGNS: Temperature normal, respiratory rate 20, heart rate 74, blood pressure 146/67. Pulse oxygen saturation on 3 liters nasal cannula 95% saturation. HEENT: Examination shows no acute change. NECK: Supple. CARDIOVASCULAR: S1, S2 audible. LUNGS: The patient was noted without any wheezing or crackles. Breath sounds noted mildly decreased bilaterally. ABDOMEN: Soft, nontender. LABORATORY DATA: BMP today: BUN 52; creatinine 2.02, decrease from previous couple of days labs as well. CBC: Hemoglobin 8.9, hematocrit 29.3. Blood cultures, no bacterial growth from 01/31/2017. Vancomycin trough level yesterday noted at 21.0. The chest x-ray of the patient that was done yesterday was reviewed, shows congestive heart failure. IMPRESSION: 1. The patient who has been noted with congestive heart failure with resolving acute kidney injury gradually. 2. Symptoms of depression for this patient was also noted. PLAN OF TREATMENT: Continue the patient's current therapy and the use of BiPAP as tolerated, bronchodilators and oxygen supplementation. JANNIE CANNON MD CM:PNTRANS 1116 JANNIE SEVILLA MD 02/07/17 0440 interface
--- NOTE | ~2017-01-31 | CON ---
[place], [place] REPORT OF CONSULTATION NAME: MUSA GARCIA UNIT #: [id number] ROOM: 421 DOCTOR: MALGORZATA SERRANO MD BIRTHDATE: [birth year] DOS: 02/13/2017 CHIEF COMPLAINT: "I don't feel well." HISTORY OF PRESENT ILLNESS: This is an 81-year-old female who was admitted to the hospital from [facility] with worsening shortness of breath and altered mental status. The patient was ultimately admitted due to an exacerbation of her congestive heart failure as well as acute kidney failure, severe sepsis, C. diff. Subsequently from a psychiatric standpoint, it has been noticed that the patient is a poor historian and has been somewhat depressed and despondent. PAST MEDICAL HISTORY: Remarkable for a plethora of physical issues including the CHF, acute kidney failure with tubular necrosis, acute and chronic respiratory failure, fever, sepsis, pneumonitis, hypercapnia, hypertension, hypertensive urgency, hypermagnesium, CAD, chronic kidney disease stage 4, insulin-dependent diabetes, severe protein-calorie malnutrition, COPD, anemia, pseudomembranous colitis, anemia of chronic disease. MENTAL STATUS: The patient is alert and oriented. She is a poor historian. She does come across as depressed and is rather flat and blunted and her responses are short and simple. She denies issues, but as mentioned, she does seem to be depressed. There is no psychosis and there is no dougei. Memory has gaps. DIAGNOSIS: From a psychiatric standpoint is major depression, recurrent. PLAN: I will go ahead and start her on Remeron 15 mg at bedtime. Should she require further intervention, please re-notify me or my coverage physician. MALGORZATA SERRANO MD CM:CONSTR:REPORT OF CONSULTATION 1033 02/13/17 2159 interface
--- NOTE | ~2017-01-31 | PR ---
[place], [place] PROGRESS NOTE NAME: MUSA GARCIA [facility] #: [id number] UNIT #: [id number] ROOM: 421 DOCTOR: ADVIS SEVILLA MD,JANNIE BIRTHDATE: [birth year] DOS: 02/08/2017 PULMONARY FOLLOWUP SUBJECTIVE: She was seen and examined on 02/08/2017. She has been noted comfortable at this time, was planned for thoracentesis to be done today at the bedside. She has now been noted symptoms of chest pain, shortness of breath. She was noted diffuse maculopapular rash of the skin yesterday and this morning. All of the antibiotics were discontinued yesterday as there was no need to use that. OBJECTIVE: VITAL SIGNS: Showed normal temperature, respiratory rate 18, heart rate 82, blood pressure 154/58. Pulse oxygen saturation on 4 liters nasal cannula 96% saturation. HEENT: Examination shows no acute change. NECK: Supple. CARDIOVASCULAR: S1, S2 audible. LUNGS: Shows decreased breaths in the lung bases bilaterally, no crackles. ABDOMEN: Soft, nontender. SKIN: Showed diffuse rash. LABORATORY DATA: CBC today: WBC count 16,000, hemoglobin 8.8, hematocrit 29.1, platelet count were normal. ESR was 88 today. The PTH level noted at 178, elevated. The BMP of this morning was noted. BUN 43, creatinine 1.76. IMPRESSION: 1. Progressive resolution of the acute kidney injury. 2. Pleural fluid, which appeared to be even smaller than yesterday's examination. Ultrasound of the chest was performed just this morning at the bedside. Thoracentesis was planned, but not done because of the small amount of fluid noted. There is no benefit of doing thoracentesis. The risk of lung injury is high because of the current small pleural fluid if thoracentesis attempted. 3. The patient with resolving acute respiratory failure progressively. 4. Skin rash secondary to the antibiotics administered. PLAN OF MANAGEMENT: Continue current treatment, monitor kidney functions. Stool for occult blood was also noted positive. The patient has been getting intravenous Lasix yesterday 40 mg b.i.d., resulting in improvement and resolution of pleural fluid. The BiPAP will be discontinued, since the patient has not been using that for the last couple of days. Other treatment plan and management and care. [place], [place] PROGRESS NOTE NAME: MUSA GARCIA UNIT #: [id number] ROOM: 421 DOCTOR: JANNIE REBOLLEDO MD BIRTHDATE: [birth year] JANNIE CANNON MD CM:STEWART [id number] JANNIE SEVILLA MD 02/09/176 interface
--- NOTE | ~2017-01-31 | CON ---
[place], [place] REPORT OF CONSULTATION NAME: MUSA GARCIA UNIT #: [id number] ROOM: 421 [facility] B[facility] [birth year] DOS: HISTORY OF PRESENT ILLNESS: The patient is 81 years old who has presented with anemia and guaiac-positivity. H and H of 7.7 and 25 and platelet count of 283, undergoing investigation. Her BUN and creatinine has been 54 and 2.56. GFR of 22. Chest x-ray, no significant change in bilateral lower air space disease. Abdomen, KUB, left femoral line in place. CBC differential was reassessed, confirmation of anemia. She was given a unit of blood to 8.5 and subsequently to 9 and 29, improvement 2 units packed cell transfusion. Followup hematocrit remains about 29. Blood cultures, no growth. CBC differential continued to hold and slight dilution is also noticed. PAST MEDICAL HISTORY: Gastroesophageal reflux, diabetes mellitus, obesity, congestive heart failure, hypertension, anxiety disorder, coronary artery disease, hypertension, atrial fibrillation and difficulty with ambulation noticed. PAST SURGICAL HISTORY: Bladder repair, hysterectomy, cataracts and cardiac catheterization, 6 stents. SOCIAL HISTORY: Nonsmoker, nonalcohol consumer. FAMILY HISTORY: Noncontributory. ALLERGIES: ACTOS. MEDICATIONS: List has been reviewed, which has been including iron supplementation, Plavix and aspirin. On the other hand, the patient has been on Protonix and Carafate. REVIEW OF SYSTEMS: HEENT: Denies double vision, blurred vision. RESPIRATORY: Denies acute shortness of breath; however, chronically short of breath. CARDIOVASCULAR: Denies chest pain. DIGESTIVE SYSTEM: No hematemesis, no hematochezia and severe anemia, status post transfusion packed cells. PHYSICAL EXAMINATION: VITAL SIGNS: Stable. HEENT: Head normocephalic, nontraumatic. Mouth and buccal mucosa benign. NECK: Supple. No thyromegaly. No cervical lymphadenopathy. CHEST: Symmetric anatomy, equal expansion. Scattered wheezes, no rhonchi. HEART: Atrial fibrillation, moderate ventricular response. ABDOMEN: Obese, soft. No hepato-organomegaly. Bowel sounds present. No pulsatile mass. EXTREMITIES: No cyanosis, no pedal edema. NEUROLOGIC: Alert, oriented to time, place and person. IMPRESSION: Respiratory insufficiency, possible exacerbation of chronic [place], [place] REPORT OF CONSULTATION NAME: MUSA GARCIA UNIT #: [id number] ROOM: 421 DOCTOR: GLORIA BAGLEY,CADY BIRTHDATE: [birth year] obstructive pulmonary disease, metabolic acidosis, hypoxemia, severe anemia, renal insufficiency. Other adjunctive diagnoses as outlined in paragraph past medical and surgical history. Diabetes is being addressed. Hyperlipidemia, hypertension, anxiety, depression being addressed. PLAN AND DISCUSSION: We are going to proceed with endoscopic assessment of upper and lower GI tract to rule out the etiology of anemia, understanding aspirin and Plavix has been on board. CADY CASTRO MD CM:CONSTR:REPORT OF CONSULTATION 1734 02/11/17 0044 interface
--- NOTE | ~2017-01-31 | PR ---
[place], [place] PROGRESS NOTE NAME: MUSA GARCIA [facility] #: [id number] UNIT #: [id number] ROOM: 421 DOCTOR: BARBER RODRIGES MD BIRTHDATE: [birth year] DOS: 02/03/2017 SUBJECTIVE: The patient was seen at her bedside today 02/03/2017. She is sitting up in a chair. She appears comfortable. She was recently hospitalized and discharged, but returned because of cough and nausea. Currently, she denies nausea, but states that she still has a productive cough. Her last chest x-ray on 01/31/2017 did show bibasilar airspace disease which was worse from previous films. A repeat is pending for today. She denies any chest pain, but still does have coarse cough. She denies any fevers or chills. Her maximum temperature in the last 24 hours was 99.0. White count has been elevated as high as 17,700 on February 01 and is currently 10,200. The patient continues to feel weak, but denies palpitations or syncope. PHYSICAL EXAMINATION: VITAL SIGNS: Today, her pulse is 64 and regular, blood pressure is 114/62. She is afebrile at 98.1, pulse oximetry is 99%. HEENT: Normocephalic, atraumatic. Extraocular muscles are intact. Oral mucosa is moist. Tongue is midline. NECK: Supple. She has no jugular distention. Carotids are full and I heard no bruits. She had no neck or supraclavicular masses. LUNGS: Respirations are unlabored. She does have bibasilar crackles. HEART: Has a regular rhythm with a fourth heart sound. I did not hear a third heart sound. ABDOMEN: Soft and normally active without masses, organomegaly or bruits. EXTREMITIES: Showed no pitting edema. LABORATORY DATA: Her last echocardiogram on 01/07/2017 showed normal left ventricular size with moderate concentric left ventricular hypertrophy, ejection fraction was estimated to be 70% with stage II diastolic dysfunction. There is aortic sclerosis, but no stenosis. There was mild mitral insufficiency and mild tricuspid insufficiency. Hemoglobin today is 7.7 with a white count of 10,200. Potassium is 4.2, BUN 54, creatinine 2.56. IMPRESSION: 1. Acute on chronic diastolic heart failure. The patient appears fairly close to euvolemia by exam. A repeat chest x-ray is pending. 2. Bibasilar infiltrates, possibly related to pneumonia. Repeat chest x-ray is pending. 3. Recurrent anemia. Hemoglobin is currently 7.7. 4. Paroxysmal atrial fibrillation, the patient is in sinus rhythm on amiodarone. 5. Anemia, probably due to GI blood loss. The patient is on antiplatelet therapies for coronary artery disease, but anticoagulants have been withheld. 6. History of coronary artery disease. PLAN: We will await the results of her repeat chest x-ray. I am concerned about her rising BUN and creatinine. For now, I will put her Lasix on hold [place], [place] PROGRESS NOTE [facility]: [facility]: [id number] UNIT #: [id number] ROOM: 421 DOCTOR: BARBER RODRIGES MD BIRTHDATE: [birth year] until her chest x-ray is available. She may benefit from a nephrology opinion as well. We will try to avoid any nephrotoxins in her management and emphasized beta blockers, nitrates, hydralazine as tolerated by blood pressure, etc. We will continue to follow her with her other physicians and we thank the hospitalist for asking our advice regarding her care. BARBER RODRIGES MD CM:PNTRANS [id number] BARBER RODRIGES MD 02/03/17 1446 interface
--- NOTE | ~2017-01-31 | PR ---
[place], [place] PROGRESS NOTE NAME: MUSA GARCIA UNIT #: [id number] ROOM: 421 DOCTOR: JANNIE REBOLLEDO MD BIRTHDATE: [birth year] DOS: 02/05/2017 PULMONARY PROGRESS NOTE SUBJECTIVE: She has been noted comfortable at this time without any distress, was noted with significant symptoms consistent with the depression. She was noted somewhat withdrawn status. She was using oxygen supplementation nasal cannula. OBJECTIVE: VITAL SIGNS: Normal temperature, respiratory rate 18, heart rate 69, blood pressure 142/56. Pulse oxygen saturation of the patient recorded on 3.5 L nasal cannula 93% saturation. HEENT: Examination showed no acute change. NECK: Supple. Chronic obesity. CARDIOVASCULAR: S1, S2 audible. LUNGS: The patient was noted with general reduction in the breath sounds. ABDOMEN: Soft, nontender. EXTREMITIES: Show mild edema. LABORATORY DATA: BMP today: BUN 55, creatinine 2.30, glucose 181, CO2 of 33. CBC: Hemoglobin 9.0, hematocrit 29.5, platelet count 273,000. Two-view chest x-ray that was done this morning was reviewed with the patient, shows PICC line in place. Mild pulmonary venous congestion marking, noted basilar area of atelectasis. IMPRESSION: 1. The patient who has been currently noted with reduction of the respiratory symptoms and findings of acute congestive heart failure with respiratory failure. 2. Resolving acute kidney injury gradually as well noted. 3. Significant symptoms of depression were also noted. PLAN OF MANAGEMENT: Psychiatry consultation. Continue current diuretic therapy. Monitor kidney functions. Continue the BiPAP use for ____ acute hypoxic respiratory failure with acute congestive heart failure. Metabolic alkalosis has been noticed stable, continue to be monitored closely. Other supportive therapy, plan of management, care and treatment plan. ____ continued to be monitored for this patient at this time and appeared to be small as compared with the previous chest x-ray. Usual care, other supportive plan of therapy and management. [place], [place] PROGRESS NOTE NAME: MUSA GARCIA UNIT #: [id number] ROOM: 421 DOCTOR: JANNIE REBOLLEDO MD BIRTHDATE: [birth year] JANNIE CANNON MD CM:STEWART [id number] JANNIE SEVILLA MD 02/05/17 2348 interface
--- NOTE | ~2017-01-31 | PR ---
[place], [place] PROGRESS NOTE NAME: MUSA GARCIA UNIT #: [id number] ROOM: 421 DOCTOR: JANNIE REBOLLEDO MD BIRTHDATE: [birth year] DOS: 02/07/2017 SUBJECTIVE: She has been noted comfortable stating that she is not feeling well, but does not have any specific complaints, using oxygen supplementation this morning and she was noted sitting on the chair eating her breakfast. Continue oxygen supplementation with the nasal cannula. OBJECTIVE: VITAL SIGNS: Normal temperature, respiratory rate 22, heart rate 77, blood pressure 154/53. Pulse oxygen saturation on 4 liters nasal cannula 94% saturation recorded. HEENT: Examination shows head was atraumatic. Eyes nonicterus. NECK: Supple. CARDIOVASCULAR: S1, S2 is audible. LUNGS: Noted with decreased breath sounds in the lower portion of the lung with scattered crackles. ABDOMEN: Soft, nontender. EXTREMITIES: Shows mild edema of the upper and the lower extremities. LABORATORY DATA: BMP this morning; BUN 47, creatinine 2.05, glucose 212. CBC of the patient this morning; WBC count 13.8, hemoglobin 8.7, hematocrit 28.8 with normal platelet count. IMPRESSION: 1. The patient with acute congestive heart failure with bilateral pleural fluid, acute kidney injury which has been gradually improving. 2. General debility, multifactorial as well. 3. Significant muscle deconditioning. Ultrasound of the chest for the patient was performed personally on both sides. Small pleural fluid noted in the left side; however, moderate pleural fluid was identified in the right pleural space ____ effusion. PLAN AND MANAGEMENT: The consent will be obtained from the patient and family members of the patient and thoracentesis could be done tomorrow morning at the bedside. The patient has been getting Xarelto, which was placed on hold for this patient because of the thoracentesis. Continuation of other supportive therapy, plan and management. The patient does not have any signs and finding of pneumonia at this time. From the pulmonary standpoint, no antibiotics necessary however to treat any known infection per primary care physician. [place], [place] PROGRESS NOTE NAME: MUSA GARCIA UNIT #: [id number] ROOM: 421 DOCTOR: JANNIE REBOLLEDO MD BIRTHDATE: [birth year] JANNIE CANNON MD CM:STEWART [phone] JANNIE SEVILLA MD 02/08/17 0120 interface
--- NOTE | ~2017-01-31 | PR ---
[place], [place] PROGRESS NOTE NAME: MUSA GARCIA UNIT #: [id number] ROOM: 421 DOCTOR: DAVIS SEVILLA MD,JANNIE BIRTHDATE: [birth year] DOS: 02/13/2017 SUBJECTIVE: She has been comfortably resting, sitting on the chair at this time, complaining of generalized weakness, fatigue. Denies any acute shortness of breath, coughing or chest pain. OBJECTIVE: VITAL SIGNS: Normal temperature, respiratory rate 20, heart rate 72, blood pressure 151/49. The pulse oxygen saturation on 2 L nasal cannula 95% saturation. HEENT: Senile hearing loss. NECK: Supple. CARDIOVASCULAR: S1, S2 audible. LUNGS: Noted without any wheeze or crackles. ABDOMEN: Soft, nontender. LABORATORY DATA: BMP: BUN 29, creatinine 1.43 today noted. CBC: WBC count was 11.5, hemoglobin 9.2, hematocrit 27.1, platelet count normal. IMPRESSION: 1. The patient has resolving acute kidney injury. 2. The patient has improving acute hypoxic respiratory failure, small bilateral pleural fluid. 3. Clostridium difficile colitis. 4. Anemia 5. Generalized debility. PLAN OF TREATMENT: No changes in the plan of therapy at this time. Continue the patient's current therapy, plan of care as previously. JANINE CANNON MD CM:PNTRANS [phone] JANNIE SEVILLA MD 02/14/17 0328 interface
--- NOTE | ~2017-01-31 | PR ---
[place], [place] PROGRESS NOTE NAME: MUSA GARCIA UNIT #: [id number] ROOM: 421 DOCTOR: DAVIS SEVILLA MD,JANNIE BIRTHDATE: [birth year] DOS: 02/09/2017 PULMONARY FOLLOWUP SUBJECTIVE: She has been comfortably resting on the bed at this time without any distress. Denies symptoms of chest pain or abdominal pain. Denies symptoms of hemoptysis, skin rash and the patient has been noticed stable at this time. She has been getting the diuretic therapy as well. OBJECTIVE: VITAL SIGNS: For the patient, which have been recorded shows normal temperature, respiratory rate 18, heart rate 69, blood pressure 156/72. Pulse oxygen saturation 3 liters nasal cannula 97% saturation, negative around 250 mL were noted in the last 24 hours. HEENT: Moderate obesity. NECK: Supple. CARDIOVASCULAR: S1, S2 audible. LUNGS: Shows no crackles or wheezing. Breaths are noted mildly decreased in the lung bases. ABDOMEN: Soft and obese. EXTREMITIES: Shows mild edema of the lower extremities. LABORATORY DATA: BMP today: BUN 49, creatinine 1.95. The CBC of the patient of 02/09/2017, WBC count 15.1, hemoglobin 8.4, hematocrit 27.8. The platelet count was normal. IMPRESSION: The patient with ongoing acute respiratory failure, which has been improving progressively with oxygen supplementation, bilateral pleural fluid. Allergic to ____, debility. PLAN OF TREATMENT: Physical therapy and occupational therapy, consider shelter facility placement, further medical management upon discharge. JANNIE CANNON MD CM:PNTRANS [phone] JANNIE SEVILLA MD 02/10/17 1056 interface
--- NOTE | ~2017-01-31 | PR ---
[place], [place] PROGRESS NOTE [id number] UN[facility] #: [id number] ROOM: 421 DOCTOR: DAVIS SEVILLA MD,JANNIE BIRTHDATE: [birth year] DOS: 02/12/2017 SUBJECTIVE: The patient has been noted without any acute distress at this time. Still noted with significantly fatigued and tired. She denies symptoms of shortness of breath. Physical therapy noted quite limited transfer from bed to the chair only. OBJECTIVE: VITAL SIGNS: Showed normal temperature, respiratory rate 20, heart rate 60, blood 154/59. Intake total of 1425 mL. Pulse oxygen saturation on 2 liters 94% saturation recorded at the present time. HEENT: Showed no acute change. NECK: Supple. CARDIOVASCULAR: S1, S2 audible. LUNGS: The patient was noted without any wheezing or crackles at this time. The breaths are noted mildly decreased. ABDOMEN: Soft, nontender. LABORATORY DATA: BMP this morning, glucose 237, BUN 39, creatinine 1.6. IMPRESSION: Progressive reduction of the respiratory symptom for this patient for acute respiratory failure, improving acute kidney injury and pleural fluid related to acute kidney injury. PLAN OF TREATMENT: Continuation of current therapy at this time from the pulmonary standpoint with the oxygen supplementation, physical therapy, occupational therapy, and other plan of management. Usual care, other supportive care and treatments. JANNIE CANNON MD CM:PNTRANS [phone] JANNIE SEVILLA MD 02/12/171936 interface
--- NOTE | ~2017-01-31 | PR ---
[place], [place] PROGRESS NOTE NAME: [id number] UNIT #: [id number] ROOM: 421 DOCTOR: DAVIS SEVILLA MD,JANNIE BIRTHDATE: [birth year] DOS: 02/11/2017 PULMONARY FOLLOWUP SUBJECTIVE: She has been noted comfortable, resting on the bed. Denies symptoms of chest pain, coughing, or sputum expectoration. OBJECTIVE: VITAL SIGNS: The patient has normal temperature, respiratory rate 18-20, heart rate of 65, blood pressure 94/76. Pulse oxygen saturation on 2 liters nasal cannula 98% saturation. HEENT: Examination shows no acute change. NECK: Supple. CARDIOVASCULAR: S1, S2 is audible. LUNGS: The patient was noted without any wheezing or crackles at the present time. ABDOMEN: Soft, nontender. IMPRESSION: The patient with resolving acute respiratory failure progressively improving. Acute kidney injury, the patient improved her fluids gradually ____ debility. PLAN OF TREATMENT: From the pulmonary standpoint, the patient could be transferred back to group home facility when appropriate for further medical management, oxygen supplementation, bronchodilators and others. JANNIE CANNON MD CM:PNTRANS [phone] JANNIE SEVILLA MD 02/11/17 2013 interface
--- NOTE | ~2017-01-31 | PR ---
[place], [place] PROGRESS NOTE NAME: MUSA GARCIA UNIT #: [id number] ROOM: 421 DOCTOR: DAVIS SEVILLA MD,JANNIE BIRTHDATE: [birth year] DOS: 02/10/2017 SUBJECTIVE: She has been comfortably resting on the bed. Denies symptoms of chest pain, using the oxygen supplementation. Continued on diuretic therapy. Remains mostly bedbound. OBJECTIVE: VITAL SIGNS: Normal temperature, respirations 20, heart rate 74, blood pressure 170/76. Pulse oxygen saturation of the patient recorded on 2 liters nasal cannula 94% saturation. HEENT: Showed no new change. NECK: Supple. CARDIOVASCULAR: S1, S2 is audible. LUNGS: The patient was noted with moderate decreased breath sounds in the lungs bilaterally. ABDOMEN: Soft, nontender. LABORATORY DATA: The patient's CBC: WBC count 15.0, hemoglobin 8.1, hematocrit 26.4, and platelet count 285,000, 94% segmented neutrophils. CMP: BUN 50, creatinine 1.8 when noted. IMPRESSION: Resolving acute hypoxic respiratory failure with bilateral pleural fluid secondary to the kidney injury, congestive heart failure, combination, severe debility, the patient noted mostly bed bound at this time. PLAN, TREATMENT AND RECOMMENDATIONS: Possible consideration of either assessment for the long-term acute care facility for the [facility] facility should be done. Continuation other therapy, plan and management. Monitor respiratory status. Usual care, other supportive plan of care and treatments. JANNIE CANNON MD CM:STEWART [phone] JANNIE SEVILLA MD 02/11/17219 interface
[~2017-01-31 19:14] MED LIST changes: +COLACE100 MG PO; +DIABETIC T100 MG/51 PO; +HUMALOG100 UNIT/1 SQ; +LANTUS SOL100 UNIT/1 SQ; +NYSTATIN OINTME30 GM T
[2017-01-31 19:15] VITALS: BP 190/60
[2017-01-31 20:12] LABS: HEMATOCRIT 31.3 % (37.0-47.0); HEMOGLOBIN 9.4 g/dl (12.0-16.0); MEAN CORPUSCULAR HGB 28.8 pg (27.0-31.0); PLATELET COUNT AUTOMATED 298 10*3/uL (130-400); RED BLOOD COUNT 3.26 10*6/uL (4.10-5.10); RED CELL DISTRI WIDTH 13.7 % (0-14.5); WHITE BLOOD COUNT 14.8 10*3/uL (4.8-10.8)
[2017-01-31 20:32] LABS: TOTAL CELLS COUNTED 100 #CELLS
[2017-01-31 20:33] LABS: PLATELET SUFFICIENCY NORMAL (NORMAL)
[2017-01-31 20:34] LABS: ALBUMIN 2.5 gm/dl (3.1-4.5); ALKALINE PHOSPHATASE 104 U/L (45-117); BUN 54 mg/dl (7-24); CHLORIDE 102 mmol/L (98-107); CREATININE 2.49 mg/dL (0.55-1.02); LIPASE 61 U/L (73-393); POLYCHROMASIA SLIGHT; POTASSIUM 4.7 mmol/L (3.5-5.1); ROULEAUX SLIGHT; SGOT/AST 22 IU/L (3-35); SGPT/ALT 16 U/L (12-78); SODIUM 139 mmol/L (136-145); TOTAL PROTEIN 7.5 gm/dL (6.4-8.2)
[2017-01-31 20:36] LABS: TROPONIN I < 0.015 ng/ml (<0.045)
[2017-01-31 20:37] VITALS: BP 134/89
[2017-01-31 21:38] VITALS: BP 140/57
[2017-01-31 21:45] LABS: ABG HCO3 34.4 mmol/l (22-26); ABG O2 SATURATION 59.7 % (95-97); ARTERIAL BLOOD GAS PH 7.363 (7.35-7.45)
[2017-01-31 21:49] LABS: ARTERIAL BLOOD GAS PO2 33.1 mmHg (80-90)
--- NOTE | 2017-01-31 21:49 | NUR ---
DR. SALINAS NOTIFIED OF CRITICAL PO2 33.1
[2017-01-31 22:15] VITALS: BP 128/46
[2017-01-31 22:50] VITALS: BP 133/45
[2017-01-31 23:10] LABS: BILIRUBIN NEGATIVE (NEGATIVE); BLOOD TRACE-INTACT (NEGATIVE); CLARITY SL CLOUDY (CLEAR); COLOR YELLOW (YELLOW); GLUCOSE NEGATIVE (NEGATIVE); KETONE NEGATIVE (NEGATIVE); LEUKO ESTERASE TRACE (NEGATIVE); NITRITE NEGATIVE (NEGATIVE); PH 5.5 (5.0-9.0); SPECIFIC GRAVITY 1.015 (1.005-1.030); UROBILINOGEN 0.2 E.U./dl (0.2-1.0)
--- NOTE | 2017-01-31 23:21 | NUR ---
PT INCONTINENT FOR LARGE AMT BROWN MUSHY STOOL. PT CLEANED WITH NEW BED LINENS FOR COMFORT.
[2017-01-31 23:35] LABS: BACTERIA 1+; RBC 0-2 rbc/hpf (0-2); WBC 16-20 wbc/hpf (0-5)
[2017-02-01 00:04] VITALS: BP 141/51
--- NOTE | 2017-02-01 00:10 | NUR ---
PATIENT DENTURES TAKEN TO ICCU WITH PATIENT.
[2017-02-01] MEDS ORDERED: LANTUS SOL100 UNIT/1 SC (00:42)
[2017-02-01] MEDS ORDERED: ACETAMINOPHEN650 M5 PO (00:54)
--- NOTE | 2017-02-01 01:45 | NUR ---
MEDS REVIEWED WITH MED REC SENT FROM [facility] WHERE PATIENT RESIDES. DOCTOR FAULKNER TO THE FLOOR MADE AWARE THAT MEDS WERE REVIEWED.
--- NOTE | 2017-02-01 03:09 | NUR ---
RECHECKED PATIENTS TEMP AFTER ADMISSION COMPLETE REMOVED ALL BLANKETS EXCEPT ONE SHEET AT ADMISSION . AT 0100 PATIENTS TEMP IS 98.8 RECTAL
[2017-02-01 04:00] VITALS: BP 142/74
--- NOTE | 2017-02-01 04:00 | NUR ---
CHECKED [PATIENTS BLOOD GLUCOSE CAME BACK 49 CALLED DOCTOR ALMA INFORMED HIM GAVE DEXTROSE WILL RECHECK.
[2017-02-01 05:38] LABS: ARTERIAL BLOOD GAS PCO2 66.1 mmHg (35-45); ARTERIAL BLOOD GAS PH 7.339 (7.35-7.45)
[2017-02-01 05:39] LABS: ABG HCO3 34.6 mmol/l (22-26); ABG O2 SATURATION 59.8 % (95-97); ARTERIAL BLOOD GAS PO2 35.1 mmHg (80-90)
--- NOTE | 2017-02-01 05:46 | NUR ---
CALLED BAMBI MARQUEZ WITH PATIENTS CRITCAL PO'S HE SAID OK HE WOULD TAKE A LOOK AT THEM.
--- NOTE | 2017-02-01 05:46 | NUR ---
CONSULT CALLED TO DOCTOR [facility]SW[facility]ING [facility]. THEY SAID THEY WOULD GIVE HIM THE MESSAGE.
[2017-02-01 06:56] LABS: BASO % 0.2 % (0.0-1.0); EOS # 0.1 10*3/uL (0.0-0.4); EOS % 0.6 % (1.0-4.0); HEMATOCRIT 30.6 % (37.0-47.0); HEMOGLOBIN 9.2 g/dl (12.0-16.0); LYMPH # 0.9 10*3/uL (1.3-4.4); MEAN CELL VOLUME 95.3 fl (81.0-99.0); MEAN CORPUSCULAR HGB 28.7 pg (27.0-31.0); MEAN CORPUSCULAR HGB CONC 30.1 g/dl (33.0-37.0); MONO # 1.3 10*3/uL (0.1-1.0); MONO % 7.1 % (3.0-9.0); NEUT # 15.4 10*3/uL (2.3-7.9); NEUT % 86.7 % (47.0-73.0); PLATELET COUNT AUTOMATED 270 10*3/uL (130-400); RED BLOOD COUNT 3.21 10*6/uL (4.10-5.10); RED CELL DISTRI WIDTH 13.9 % (0-14.5); WHITE BLOOD COUNT 17.7 10*3/uL (4.8-10.8)
[2017-02-01 07:02] LABS: ACT PARTIAL THROMBO TIME 23.9 SECONDS (20.8-31.5)
[2017-02-01 07:27] LABS: CREATININE 2.39 mg/dL (0.55-1.02); PHOSPHOROUS 4.9 mg/dL (2.5-4.9)
[2017-02-01 08:00] VITALS: BP 119/47
[2017-02-01 08:04] LABS: ABG BASE EXCESS 7.9 mmol/L (-2.0-2.0); ABG HCO3 31.9 mmol/l (22-26); ABG O2 SATURATION 97.1 % (95-97); ARTERIAL BLOOD GAS PCO2 43.4 mmHg (35-45); ARTERIAL BLOOD GAS PH 7.478 (7.35-7.45)
--- NOTE | 2017-02-01 08:30 | NUR ---
BIPAP OFF, NC AT 4L FOR POX>96, UP TO A RECLINER WITH ASSIST X 2, DTR HERE TO FEED PT
[2017-02-01 12:00] VITALS: BP 95/49
--- NOTE | 2017-02-01 18:35 | NUR ---
NORCO 10 MG GIVEN AND IS EFFECTIVE
[2017-02-01 20:00] VITALS: BP 145/85
--- NOTE | 2017-02-01 20:10 | NUR ---
1944 RESTING IN BED ON LEFT SIDE. HOB ELEVATED. SIDE RAILS UP X'S 2. PULSE OX 95% ON 4L 02 VIA NC. HEP LOCK INTACT. SOSA PATENT AND DRAINING CLOUDY YELLOW URINE. NO C/O'S PAIN OR DISCOMFORT VOICED AT PRESENT. NO DISTRESS NOTED.
--- NOTE | 2017-02-01 21:40 | NUR ---
2114 PT BEDSIDE BLOOD SUGAR TO LOW TO READ. STAT REFLEX ORDERED. PT IS DIAPHORETIC AND DROWSY. GIVEN CONT OF OJ WITH ENCOURAGMENT. 2129 LAB HERE TO DRAW STAT REFLEX. 1 AMP OF D50 GIVEN AFTER THIS. PT MORE ALERT. TOOK PO PILLS IN APPLESAUCE. 2139 FED TORTELLINI SOUP FROM HOME PER REQUEST. UNABLE TO FEED SELF. STATES "MY HANDS SHAKE."
--- NOTE | 2017-02-01 22:06 | NUR ---
ALERT. SKIN W/D. REPOSITIONED. CALL LIGHT IN REACH.
[2017-02-02] VITALS: BP 115/41
--- NOTE | 2017-02-02 00:15 | NUR ---
2330 BEDSIDE BLOOD SUGAR IS 105. 0000 RESTING IN BED WITH EYES CLOSED. APPEARS TO BE SLEEPING. NO DISTRESS NOTED.
--- NOTE | 2017-02-02 01:39 | NUR ---
REPOSITIONED. MEDICATED WITH NORCO PO FOR C/O'S BACK PAIN. WILL MONITOR.
--- NOTE | 2017-02-02 03:51 | NUR ---
EARLIER PAIN MED EFFECTIVE.
[2017-02-02 04:00] VITALS: BP 126/48
[2017-02-02 05:15] LABS: BASO % 0.2 % (0.0-1.0); EOS # 0.1 10*3/uL (0.0-0.4); HEMATOCRIT 25.3 % (37.0-47.0); HEMOGLOBIN 7.5 g/dl (12.0-16.0); LYMPH # 0.6 10*3/uL (1.3-4.4); LYMPH % 4.9 % (27.0-41.0); MEAN CELL VOLUME 95.5 fl (81.0-99.0); MEAN CORPUSCULAR HGB 28.3 pg (27.0-31.0); MEAN CORPUSCULAR HGB CONC 29.6 g/dl (33.0-37.0); MEAN PLATELET VOLUME 11.1 fl (9.6-12.3); MONO # 0.9 10*3/uL (0.1-1.0); MONO % 7.4 % (3.0-9.0); PLATELET COUNT AUTOMATED 218 10*3/uL (130-400); RED BLOOD COUNT 2.65 10*6/uL (4.10-5.10); WHITE BLOOD COUNT 12.8 10*3/uL (4.8-10.8)
[2017-02-02 05:31] LABS: CREATININE 2.34 mg/dL (0.55-1.02); MAGNESIUM 2.8 mg/dL (1.5-2.1); POTASSIUM 4.1 mmol/L (3.5-5.1)
--- NOTE | 2017-02-02 06:08 | NUR ---
0530 BEDSIDE BLOOD SUGAR IS 60. PT IS ALERT. SKIN W/D. GIVEN 2 CONT OF OJ WITH SUGAR AND THICKIT. SOSA PATENT. 02 INTACT. REFUSED BIPAP EARLIER. OCC MOIST NON-PRODUCTIVE COUGH NOTED. PULSE OX 97%. WILL CONT TO MONITOR. CONDITION GUARDED.
[2017-02-02 08:00] VITALS: BP 122/48
--- NOTE | 2017-02-02 08:15 | NUR ---
PLACED UP INTO CHAIR WITH ASSIST TIMES TWO. LUNGS CLEAR BILATERALLY. MOIST NON-PRODUCTIVE COUGH NOTED. PULSE OX 94% ON 4L NASAL CANNULA. SOSA DRAINING CLEAR YELLOW URINE. BP 122/48.
[2017-02-02 11:57] VITALS: BP 114/42
[2017-02-02 15:44] VITALS: BP 121/55
--- NOTE | 2017-02-02 17:46 | NUR ---
MEDICATED WITH ZOFRAN ORDERED FOR COMPLAINTS OF NAUSEA.
--- NOTE | 2017-02-02 18:00 | NUR ---
TRANSFERRED TO ROOM 421 VIA CHAIR.
--- NOTE | 2017-02-02 19:07 | NUR ---
spo2 93% on 3lnc bipap in room..pt states she doesn't want to wear bipap tonight ...pt aware that she has satx's ordered if needed..pt in no distress
--- NOTE | 2017-02-02 19:15 | NUR ---
PT. IS RESTING COMFORTABLY IN CHAIR AT BEDSIDE, WITH CALL LIGHT IN REACH AND OXGYEN VIA NASAL CANNULA IN USE. NO DISTRESS NOTED AT THIS TIME, SEE SHIFT ASSESSMENT.
[2017-02-02 20:00] VITALS: BP 101/48
--- NOTE | 2017-02-02 22:39 | NUR ---
PRN NORCO 5/325 GIVEN PER PT. REQUEST FOR BACK PAIN RATING A 6/10. WILL CONTINUE TO MONITOR.
--- NOTE | 2017-02-02 23:00 | NUR ---
PRN NORCO SEEMS TO BE EFFECTIVE, PT. IS SLEEPING COMFORTABLY WITH RESPIRATIONS EASY AND REGULAR. O2 4LNC IN PLACE WELL CALL LIGHT IN REACH WILL CONTINUE TO MONITOR.
[2017-02-03] VITALS: BP 114/49
--- NOTE | 2017-02-03 01:47 | NUR ---
24 HR chart check completed.
[2017-02-03 06:32] LABS: BASO % 0.4 % (0.0-1.0); EOS # 0.3 10*3/uL (0.0-0.4); HEMATOCRIT 25.5 % (37.0-47.0); HEMOGLOBIN 7.7 g/dl (12.0-16.0); LYMPH # 0.8 10*3/uL (1.3-4.4); LYMPH % 7.4 % (27.0-41.0); MEAN CELL VOLUME 95.9 fl (81.0-99.0); MEAN CORPUSCULAR HGB 28.9 pg (27.0-31.0); MEAN CORPUSCULAR HGB CONC 30.2 g/dl (33.0-37.0); MEAN PLATELET VOLUME 10.7 fl (9.6-12.3); MONO # 0.8 10*3/uL (0.1-1.0); MONO % 7.6 % (3.0-9.0); NEUT # 8.2 10*3/uL (2.3-7.9); NEUT % 80.8 % (47.0-73.0); PLATELET COUNT AUTOMATED 238 10*3/uL (130-400); RED BLOOD COUNT 2.66 10*6/uL (4.10-5.10); RED CELL DISTRI WIDTH 14.2 % (0-14.5); WHITE BLOOD COUNT 10.2 10*3/uL (4.8-10.8)
--- NOTE | 2017-02-03 06:34 | NUR ---
DR. FRANCIS CONTACTED IN REGARDS TO PT. WEIGHT GAIN, SEE NEW ORDERS.
[2017-02-03 06:58] LABS: CREATININE 2.56 mg/dL (0.55-1.02); MAGNESIUM 2.7 mg/dL (1.5-2.1); POTASSIUM 4.2 mmol/L (3.5-5.1)
[2017-02-03 08:00] VITALS: BP 114/62
--- NOTE | 2017-02-03 08:30 | NUR ---
MACHINE HOOP MAKER HELPER VS. DAUGHTER PRESENT AND STATES PT IS AT [facility] FOR SNF STAY AND PLANS TO RETURN.
--- NOTE | 2017-02-03 09:22 | NUR ---
DR SHERMAN ON FLOOR. SEEN PT. DISCUSSED WT GAIN PER BED SCALE WT, LABS AND CXR ORDERED FOR TODAY.
--- NOTE | 2017-02-03 09:24 | NUR ---
PHYSICAL THERAPY PT eval completed at bedside this morning. Moderate complexity eval based on chart review, pt/fam interview and results of eval. Able to complete transfer to bedside chair with varying min to max assist to prevent LOB as knees buckled from weakness. Please see eval for more details. Recommend return to SNF when medically stable. Jacqueline Morales, PT
--- NOTE | 2017-02-03 11:45 | NUR ---
This nurse went in to patient's room to evaluate patient BLE for wounds. Patient has a 0.5cm x 0.5cm x <0.1cm intact scab noted to the RLE. No drainage noted. No redness surrounding area. Patient has two small ecchyomtic areas noted to the LLE. No treatment need at this time.
[2017-02-03 12:00] VITALS: BP 122/63
[2017-02-03 16:00] VITALS: BP 141/55
--- NOTE | 2017-02-03 18:22 | NUR ---
IV SITE LOST. MULTIPLE NURSES ATTEMPTED WITH NO SUCCESS. DR MARIE NOTIFIED. HE STATES HE WILL LET THE NIGHT TEAM KNOW AND THEY WILL LET US KNOW ABOUT A POSSIBLE CENTRAL LINE.
--- NOTE | 2017-02-03 18:37 | NUR ---
ORDERS RECEIVED FOR PICC LINE INSERTION TOMORROW FROM DR FRANCIS.
--- NOTE | 2017-02-03 19:00 | NUR ---
PT. IS HAVING A LEFT FEMORAL LINE PLACED AT THIS TIME, WITH TU MARQUEZ, CARLY, AND KAUSHIK PRESENT. SEE PROCEDURAL NOTE.
[2017-02-03 20:00] VITALS: BP 110/53
--- NOTE | 2017-02-03 21:58 | NUR ---
PRN NORCO 5/325 GIVEN PER PT. REQUEST FOR BACK PAIN, WILL CONTINUE TO MONITOR.
--- NOTE | 2017-02-03 22:15 | NUR ---
PRN NORCO EFFECTIVE, PT. IS SLEEPING WITH HOB ELEVATED AND CALL LIGHT IN REACH. RESPIRATIONS ARE EASY AND REGULAR.
--- NOTE | 2017-02-03 23:00 | NUR ---
PT STATES SHE DID NOT WANT TO WEAR THE BIPAP TONIGHT. STATES THAT SHE FEELS FINE. HER NURSE WAS OFF THE FLOOR BUT FELLOW NURSES ON FLOOR WERE NOTIFIED. INFORMED TO CALL IF ANYTHING CHANGES. SPO2 96% ON 3L NC.
[2017-02-04] VITALS (10 sets, daily range): BP systolic 117–158; BP diastolic 50–76
[2017-02-04 05:57] LABS: BASO % 0.3 % (0.0-1.0); EOS # 0.3 10*3/uL (0.0-0.4); EOS % 3.5 % (1.0-4.0); HEMATOCRIT 25.2 % (37.0-47.0); HEMOGLOBIN 7.4 g/dl (12.0-16.0); LYMPH # 0.8 10*3/uL (1.3-4.4); LYMPH % 9.8 % (27.0-41.0); MEAN CELL VOLUME 95.1 fl (81.0-99.0); MEAN CORPUSCULAR HGB 27.9 pg (27.0-31.0); MEAN CORPUSCULAR HGB CONC 29.4 g/dl (33.0-37.0); MEAN PLATELET VOLUME 11.1 fl (9.6-12.3); MONO # 0.7 10*3/uL (0.1-1.0); MONO % 9.3 % (3.0-9.0); NEUT % 76.1 % (47.0-73.0); PLATELET COUNT AUTOMATED 263 10*3/uL (130-400); RED BLOOD COUNT 2.65 10*6/uL (4.10-5.10); RED CELL DISTRI WIDTH 14.1 % (0-14.5); WHITE BLOOD COUNT 7.9 10*3/uL (4.8-10.8)
--- NOTE | 2017-02-04 06:07 | NUR ---
PRN NORCO GIVEN PER PT. REQUEST WITH COMPLAINTS OF BACK PAIN RATING PAIN A 11/04. WILL MONITOR EFFECTIVENESS.
[2017-02-04 06:21] LABS: CREATININE 2.51 mg/dL (0.55-1.02)
--- NOTE | 2017-02-04 06:30 | NUR ---
PRN NORCO EFFECTIVE. PT IS SLEEPING COMFORTABLY WITH CALL LIGHT IN REACH. RESPIRATIONS EASY AND REGULAR.
--- NOTE | 2017-02-04 10:55 | NUR ---
PHYSICAL THERAPY Patient presented to therapy with report of having pneumonia in both lungs. Patient performed supine to sitting at EOB with Mod. A X 1. Patient performed sit to stand transfer with Min. A X 1. Patient transferred to bedside chair with Min. A to Mod. A x 1. Patient then performed ther ex in seated position x 15 reps each in all planes of mvmt. Patient was 1:1 with this MORTARMAN for 25 minutes total. Nicko Greene MORTARMAN
--- NOTE | 2017-02-04 13:55 | NUR ---
pt. having a pic line placed at this time.
--- NOTE | 2017-02-04 14:22 | NUR ---
1 UNIT PRBC'S TRANSFUSED PER ORDER WITHOUT DIFFICULTY, PT TOLERATED WELL
[2017-02-04 15:58] LABS: BASO % 0.4 % (0.0-1.0); EOS # 0.3 10*3/uL (0.0-0.4); EOS % 3.1 % (1.0-4.0); HEMATOCRIT 26.8 % (37.0-47.0); HEMOGLOBIN 8.5 g/dl (12.0-16.0); LYMPH # 0.5 10*3/uL (1.3-4.4); LYMPH % 5.8 % (27.0-41.0); MEAN CELL VOLUME 93.4 fl (81.0-99.0); MEAN CORPUSCULAR HGB 29.6 pg (27.0-31.0); MEAN CORPUSCULAR HGB CONC 31.7 g/dl (33.0-37.0); MEAN PLATELET VOLUME 10.6 fl (9.6-12.3); MONO # 0.7 10*3/uL (0.1-1.0); MONO % 8.1 % (3.0-9.0); NEUT # 7.3 10*3/uL (2.3-7.9); NEUT % 81.5 % (47.0-73.0); PLATELET COUNT AUTOMATED 261 10*3/uL (130-400); RED BLOOD COUNT 2.87 10*6/uL (4.10-5.10); RED CELL DISTRI WIDTH 14.6 % (0-14.5)
[2017-02-05] VITALS: BP 140/52
--- NOTE | 2017-02-05 06:42 | NUR ---
PT TEARFUL, SPEAKING OF . COMFORT GIVEN. PT CALLING FAMILY AT THIS TIME. ENCOURAGED PT TO EXPRESS HER WISHES/FEELINGS TO HER FAMILY.
[2017-02-05 07:06] LABS: BASO % 0.4 % (0.0-1.0); EOS # 0.3 10*3/uL (0.0-0.4); EOS % 2.9 % (1.0-4.0); HEMATOCRIT 29.5 % (37.0-47.0); HEMOGLOBIN 9.2 g/dl (12.0-16.0); LYMPH # 0.7 10*3/uL (1.3-4.4); LYMPH % 7.6 % (27.0-41.0); MEAN CELL VOLUME 93.1 fl (81.0-99.0); MEAN CORPUSCULAR HGB CONC 31.2 g/dl (33.0-37.0); MEAN PLATELET VOLUME 10.8 fl (9.6-12.3); MONO # 0.9 10*3/uL (0.1-1.0); MONO % 9.3 % (3.0-9.0); NEUT # 7.6 10*3/uL (2.3-7.9); NEUT % 78.6 % (47.0-73.0); PLATELET COUNT AUTOMATED 273 10*3/uL (130-400); RED BLOOD COUNT 3.17 10*6/uL (4.10-5.10); RED CELL DISTRI WIDTH 14.6 % (0-14.5); WHITE BLOOD COUNT 9.6 10*3/uL (4.8-10.8)
--- NOTE | 2017-02-05 07:15 | NUR ---
PATIENT STATED THAT SHE IS NO LONGER GOING TO WEAR THE BI-PAP. DAUGHTER AND RN AWARE.
[2017-02-05 07:23] LABS: CREATININE 2.3 mg/dL (0.55-1.02); MAGNESIUM 3.4 mg/dL (1.5-2.1); PHOSPHOROUS 3.8 mg/dL (2.5-4.9); POTASSIUM 4.2 mmol/L (3.5-5.1)
[2017-02-05 08:00] VITALS: BP 143/56
--- NOTE | 2017-02-05 09:11 | NUR ---
DR. CANNON CALLED WANTS PRIMARY DOCTOR TO ORDER PSYCH CONSULT. SPOKE WITH DR. MARIE HE WILL TAKE CARE OF IT.
--- NOTE | 2017-02-05 09:56 | NUR ---
PHYSICAL THERAPY Kiera was seen this AM 1:1 for her therapy session. She said that she did not know how she was doing just very tired, family present. Transfer supine/sit very slow with MOD A X 1, sitting balance X 5 min CGA X 1. Sit/stand and standing balance MOD A X 1, pivot to bedside chair MOD/MAX A X 1 and stand to tolerance with cues to watch for bilateral knees that they do not buckle. Family present to help if needed, Kiera wanting to rest at this time. DONNELL FERNANDEZ SENIOR SHAREPOINT DEVELOPER.
--- NOTE | 2017-02-05 10:40 | NUR ---
CALLED DR. SERRANO AWARE OF CONSULT. HE WILL SEE HER TOMORROW.
--- NOTE | 2017-02-05 11:07 | NUR ---
REFUSES BIPAP AT THIS TIME. RN AND DAUGHTER ALSO PRESENT IN ROOM.
--- NOTE | 2017-02-05 11:44 | NUR ---
Occupational Therapy treatment offered this date. Patient in bed shivering (feeling cold). Patient indicates that she feels bad and that she is waiting for test results to determine the cause. Pt pleasantly declines OT at this time. OT will attempt at a later time. Conchita Evans OTR/L
[2017-02-05 12:00] VITALS: BP 129/49
--- NOTE | 2017-02-05 13:19 | NUR ---
PT REFUSING BIPAP AT THIS TIME. DAUGHTER PRESENT.
--- NOTE | 2017-02-05 13:39 | NUR ---
PATIENT VANC TROUGH HIGH AT 21.1. PHARMECIST CONTACTED TO RESET TIME OF ADMINISTRATION. VANC INFUSION HELD.
--- NOTE | 2017-02-05 15:37 | NUR ---
PATIENT IS RESTING IN BED, AND IS HARD TO AROUSE. PATIENT IS RECEIVING 3.5 LPM O2 VIA NASAL CANNULA, BUT REMAINS SOB ON EXERTION. FAMILY MEMBERS ARE PRESENT AT PATIENT BEDSIDE. STUDENT NURSE WILL CONTINUE DOCUMENTATION AND MED ADMINISTRATION.
[2017-02-05 16:00] VITALS: BP 149/56
--- NOTE | 2017-02-05 16:42 | NUR ---
PT C/O BACK PAIN, RATES PAIN 6 ON PAIN SCALE0-10. MEDICATED WITH NORCO PO PER PRN ORDER, SEE EMAR. CALL LIGHT IN REACH.
--- NOTE | 2017-02-05 19:38 | NUR ---
PATIENT RESTING IN BED WITH EYES CLOSED. RESPS EASY AND REGULAR. BED IN LOWEST POSITION, BED ALARM ON, CALL LOLY SO
[2017-02-05 20:00] VITALS: BP 133/63
[2017-02-06] VITALS: BP 131/54
--- NOTE | 2017-02-06 02:43 | NUR ---
PATIENT RESTING IN BED WITH EYES CLOSED. RESPS EASY AND REGULAR. BED IN LOWEST POSITION, CALL LIGHT IN REACH
--- NOTE | 2017-02-06 02:58 | NUR ---
24 HR chart check completed.
[2017-02-06 05:56] LABS: BASO # 0.1 10*3/uL (0.0-0.1); BASO % 0.4 % (0.0-1.0); EOS # 0.3 10*3/uL (0.0-0.4); EOS % 2.2 % (1.0-4.0); HEMATOCRIT 29.3 % (37.0-47.0); HEMOGLOBIN 8.9 g/dl (12.0-16.0); LYMPH # 0.8 10*3/uL (1.3-4.4); LYMPH % 6.8 % (27.0-41.0); MEAN CELL VOLUME 94.2 fl (81.0-99.0); MEAN CORPUSCULAR HGB 28.6 pg (27.0-31.0); MEAN CORPUSCULAR HGB CONC 30.4 g/dl (33.0-37.0); MEAN PLATELET VOLUME 10.5 fl (9.6-12.3); MONO # 0.9 10*3/uL (0.1-1.0); MONO % 7.8 % (3.0-9.0); NEUT # 9.1 10*3/uL (2.3-7.9); NEUT % 81.3 % (47.0-73.0); PLATELET COUNT AUTOMATED 273 10*3/uL (130-400); RED BLOOD COUNT 3.11 10*6/uL (4.10-5.10); RED CELL DISTRI WIDTH 14.6 % (0-14.5); WHITE BLOOD COUNT 11.2 10*3/uL (4.8-10.8)
[2017-02-06 06:07] LABS: CREATININE 2.02 mg/dL (0.55-1.02); POTASSIUM 4.3 mmol/L (3.5-5.1)
--- NOTE | 2017-02-06 07:59 | NUR ---
pt. continues to refuse to wear bipap, daughter at bedside.
[2017-02-06 08:00] VITALS: BP 146/67
--- NOTE | 2017-02-06 11:15 | NUR ---
PHYSICAL THERAPY Patient presented to therapy with report of being tired and wanting to get better and stronger. Patient performed supine to sitting at EOB transfer with SBA to CGA X 1. Patient performed sit to stand transfer with CGA X 1. Patient transferred to bedside chair with Min. A X 1. Patient performed seated ther ex in all planes of mvmt. x 20 reps each. Patient was left sitting in bedside chair with call light within reach and LEs raised. Patient tolerated ther ex and transfer with minimal increased fatigue. Patient was 1:1 with this SAXOPHONE TEACHER for 25 minutes total. Nicko Greene SAXOPHONE TEACHER
[2017-02-06 12:00] VITALS: BP 140/52
--- NOTE | 2017-02-06 14:52 | NUR ---
DR SAAVEDRA OFFICE NOTIFIED OF NEW CONSULT FOR RENAL FAILURE.
[2017-02-06 15:32] LABS: IRON 36 ug/dL (50-170); TOTAL IRON BINDING CAPACITY 135 ug/dl (250-450)
[2017-02-06 16:00] VITALS: BP 122/89
--- NOTE | 2017-02-06 19:52 | NUR ---
PT DOZING...AWAKENS TO VOICE. NO DISTRESS.
[2017-02-06 20:00] VITALS: BP 140/68
--- NOTE | 2017-02-06 20:04 | NUR ---
24 HOUR CHART CHECK COMPLETED.
--- NOTE | 2017-02-06 22:01 | NUR ---
AWAKE, TALKING ABOUT HER STUFFED ANIMALS AND HER GRANDCHILDREN. UPPER DENTURES REMOVED BY PT AND I PLACED THEM IN HER DENTURE CUP.
--- NOTE | 2017-02-06 23:00 | NUR ---
ASSUMED CARE OF PT AT THIS TIME, RESPS EASY AND NONLABORED WITH NO S/S OF DISTRESS CALL LIGHT WITH IN REACH
[2017-02-07] VITALS: BP 136/67
--- NOTE | 2017-02-07 04:51 | NUR ---
RESTING IN BED WITH EYES CLOSED, CALL LIGHT WITH IN REACH
[2017-02-07 06:12] LABS: BASO % 0.3 % (0.0-1.0); EOS # 0.3 10*3/uL (0.0-0.4); EOS % 1.9 % (1.0-4.0); HEMATOCRIT 28.8 % (37.0-47.0); HEMOGLOBIN 8.7 g/dl (12.0-16.0); LYMPH # 0.8 10*3/uL (1.3-4.4); LYMPH % 5.7 % (27.0-41.0); MEAN CORPUSCULAR HGB 28.7 pg (27.0-31.0); MEAN CORPUSCULAR HGB CONC 30.2 g/dl (33.0-37.0); MEAN PLATELET VOLUME 10.6 fl (9.6-12.3); MONO # 0.9 10*3/uL (0.1-1.0); MONO % 6.5 % (3.0-9.0); NEUT # 11.6 10*3/uL (2.3-7.9); PLATELET COUNT AUTOMATED 287 10*3/uL (130-400); RED BLOOD COUNT 3.03 10*6/uL (4.10-5.10); RED CELL DISTRI WIDTH 14.6 % (0-14.5); WHITE BLOOD COUNT 13.8 10*3/uL (4.8-10.8)
[2017-02-07 06:29] LABS: CREATININE 2.05 mg/dL (0.55-1.02); POTASSIUM 4.4 mmol/L (3.5-5.1)
--- NOTE | 2017-02-07 07:46 | NUR ---
24 HR chart check completed.
[2017-02-07 08:00] VITALS: BP 154/53
--- NOTE | 2017-02-07 09:59 | NUR ---
PHYSICAL THERAPY Kiera seen this AM and having her breakfsat at this time. Stopped back and Pt was up in her bedside chair. With much verbal cueing transfer sit/stand, standing balance with MAX A X 1, with cueing just to stand to her tolerance then sit, Pt said thats all. Talked Pt into her Ex to bilateral LE of marching, LAQ's, and ankle pumps X 15 reps each with cueing for each Ex, Pt with her call light and phone. DONNELL FERNANDEZ CONTRACTING ENGINEER.
[2017-02-07 12:00] VITALS: BP 158/94
--- NOTE | 2017-02-07 12:22 | NUR ---
Faxed patient clincals to [facility] for review
[2017-02-07 12:47] LABS: URINE CREATININE RANDOM 97.6 mg/dL
--- NOTE | 2017-02-07 13:54 | NUR ---
Patient from [facility] in [place], can return when stable for discharge.
[2017-02-07 16:00] VITALS: BP 146/61
[2017-02-07 20:00] VITALS: BP 157/59
--- NOTE | 2017-02-07 21:56 | NUR ---
PT VERY CONVERSIVE AND PLEASANT. MEDICATIONS TAKEN WITH EASE WITH YOGURT.
[2017-02-08] VITALS: BP 146/58
--- NOTE | 2017-02-08 01:34 | NUR ---
PATIENT IS RESTING COMFORTABLY IN BED. PATIENT WAS COOPERATIVE AND PLEASANT UPON ASSESSMENT. PATIENT HAD NO REQUESTS AT THIS TIME, RESP WERE EASY AND UNLABORED AT 3LPM VIA NC . WILL CONTINUE TO MONITOR PATIENT, CALL LIGHT IS WITHIN REACH. SEE SHIFT ASSESSMENT.
--- NOTE | 2017-02-08 03:16 | NUR ---
DURING PATIENT BATH. PATIENT HAD A RED, NON-ITCHY RASH THAT WAS CAUSING DISCOMFORT ON THE PATIENT'S LE, ABD, GROIN, ARMPITS, AND UNDER THE BREASTS. DR. WILLIS WAS CONTACTED, NO FURTHER ORDERS GIVEN AT THIS TIME.
--- NOTE | 2017-02-08 04:09 | NUR ---
DR. KOHLI, DR. WILLIS IN TO SEE PT. RED PETECHIA RASH ALLOVER UPPER AND LOWER EXTREMITIES AND TRUNK AREA. PT STATES HURTS WHEN YOU TOUCH IT. DENIES ANY ITCHING AT THIS TIME. CALL LIGHT IN REACH.
--- NOTE | 2017-02-08 04:17 | NUR ---
NOTIFY DR. WILLIS THAT FECAL OCCULT STOOL SAMPLE CAME BACK POSITIVE. NO FURTHER ORDERS GIVEN AT THIS TIME.
[2017-02-08 06:15] LABS: HEMATOCRIT 29.1 % (37.0-47.0); HEMOGLOBIN 8.8 g/dl (12.0-16.0); MEAN CELL VOLUME 93.9 fl (81.0-99.0); MEAN CORPUSCULAR HGB 28.4 pg (27.0-31.0); MEAN CORPUSCULAR HGB CONC 30.2 g/dl (33.0-37.0); MEAN PLATELET VOLUME 10.5 fl (9.6-12.3); PLATELET COUNT AUTOMATED 284 10*3/uL (130-400); RED CELL DISTRI WIDTH 14.4 % (0-14.5)
--- NOTE | 2017-02-08 06:28 | NUR ---
PATIENT IS RESTING IN BED. PATIENT STATES FEELING BETTER THAN THEY WERE YESTERDAY. SUPPLIES FOR THORACENTESIS HAVE BEEN GATHERED AND PLACED AT PATIENTS BEDSIDE. NO FORTHER REQUSTS AT THIS TIME. CALL LIGHT IS WITHIN REACH.
[2017-02-08 06:30] LABS: CREATININE 1.76 mg/dL (0.55-1.02); POTASSIUM 4.4 mmol/L (3.5-5.1)
[2017-02-08 07:10] LABS: TOTAL CELLS COUNTED 100 #CELLS
[2017-02-08 07:11] LABS: PLATELET SUFFICIENCY NORMAL (NORMAL); POLYCHROMASIA SLIGHT
--- NOTE | 2017-02-08 07:30 | NUR ---
DANIS RAMOS AND EDGAR INSTRUCTOR ROSEMARY MONTERO, ASSUMING CARE OF PT.
[2017-02-08 08:00] VITALS: BP 154/58
--- NOTE | 2017-02-08 08:05 | NUR ---
NOTIFIED DR Miguel Angel FERNANDES OF RED, WARM PAINFUL,DIFFUSE RASH COVERING PT'S BACK,CHEST ARMPITS, GROIN, BLE AND FEET. SKIN IS BLANCHABLE AND NOTIFIED WOUND CARE NURSE. NO OPEN AREAS OR WEEPING NOTED. PT DOES C/O OF QUITE A BIT OF BURNING PAIN. DR FERNANDES WILL ROUND TO SEE PT.
--- NOTE | 2017-02-08 09:46 | NUR ---
Patient resting quietly with no c/o discomfort. Respirations easy and regular. Vital signs stable. No overt distress. FAMILY AT BEDSIDE AWAITING DR CANNON FOR THORACENTESIS TODAY ANTONI NUNEZ
--- NOTE | 2017-02-08 11:54 | NUR ---
DR CANNON AT BEDSIDE AND AFTER VIEWING ULTRASOUND OF LUNG MESA, NO THORACENTESIS NEEDED D/T SMALLER THAN YESTERDAY.
--- NOTE | 2017-02-08 11:58 | NUR ---
NOTIFIED DAUGHTER NARESH OF DR CANNON'S DECISION FOR NOT HAVING THOROCENTESIS PER FAMILY REQUEST.
[2017-02-08 12:00] VITALS: BP 160/52
--- NOTE | 2017-02-08 13:52 | NUR ---
SPOKE TO DR CANNON REGARDING PT REFUSAL TO WEAR BIPAP, ORDER RECIEVED TO D/C BIPAP.
[2017-02-08 16:00] VITALS: BP 126/86
[2017-02-08 20:00] VITALS: BP 143/55
--- NOTE | 2017-02-08 20:30 | NUR ---
RESTING QUIETLY IN BED. C/O GENERALIZED BODY PAIN FROM LYING IN BED. ENCOURAGED TO TURN FREQUENTLY. PLEASANT/COOPERATIVE WITH CARE. NO FURTHER COMPLAINTS AT THIS TIME. RESPIRATIONS EASY/REG. NO SXS OF DISTRESS. CALL LIGHT IN REACH.
--- NOTE | 2017-02-08 20:34 | NUR ---
MEDICATED WITH PRN TYLENOL ORDERED FOR C/O GENERALIZED BODY PAIN RATED A 5.
--- NOTE | 2017-02-08 23:44 | NUR ---
EARLIER TYLENOL APPEARS EFFECTIVE. PATIENT SLEEPING COMFORTABLY IN BED. RESPIRATIONS EASY/REGULAR. NO SXS OF DISTRESS. CALL LIGHT IN REACH.
[2017-02-09] VITALS: BP 149/59
[2017-02-09 06:36] LABS: HEMATOCRIT 27.8 % (37.0-47.0); HEMOGLOBIN 8.4 g/dl (12.0-16.0); MEAN CELL VOLUME 93.9 fl (81.0-99.0); MEAN CORPUSCULAR HGB 28.4 pg (27.0-31.0); MEAN CORPUSCULAR HGB CONC 30.2 g/dl (33.0-37.0); MEAN PLATELET VOLUME 10.6 fl (9.6-12.3); PLATELET COUNT AUTOMATED 300 10*3/uL (130-400); RED BLOOD COUNT 2.96 10*6/uL (4.10-5.10); RED CELL DISTRI WIDTH 14.3 % (0-14.5); WHITE BLOOD COUNT 15.1 10*3/uL (4.8-10.8)
[2017-02-09 06:55] LABS: ALBUMIN 2.2 gm/dl (3.1-4.5); CREATININE 1.95 mg/dL (0.55-1.02); POTASSIUM 4.7 mmol/L (3.5-5.1); TOTAL PROTEIN 6.6 gm/dL (6.4-8.2)
[2017-02-09 07:37] LABS: PLATELET SUFFICIENCY NORMAL (NORMAL); TOTAL CELLS COUNTED 100 #CELLS
[2017-02-09 08:00] VITALS: BP 100/56
--- NOTE | 2017-02-09 08:00 | NUR ---
HOB ELEVATED, EASY RESPIRATIONS WITH SKIN W/D, CONTINUES TO HAVE RED RASH. DENIES C/O CHEST PAIN. PT NOTICABLY S.O.B WITH MINIMAL EXERTION. REPOSITIONED FOR COMFORT & TO RELIEVE PRESSURE AREAS. SEE SHIFT ASSESSMENT.
--- NOTE | 2017-02-09 10:04 | NUR ---
DR HAGER IN TO SEE PT & VIEWED RASH.
[2017-02-09 12:00] VITALS: BP 156/72
--- NOTE | 2017-02-09 14:33 | NUR ---
OOBN TO CHAIR, FAMILY AT BEDSIDE.
[2017-02-09 16:00] VITALS: BP 152/60
--- NOTE | 2017-02-09 18:16 | NUR ---
DR Saleem BERMUDEZ NOTIFIED OF BLOODY BM. WILL AWAIT FURTHER ORDERS.
--- NOTE | 2017-02-09 19:13 | NUR ---
LEFT MSG ON DR CASTRO'S CELL PHONE REGARDING CONSULT.
--- NOTE | 2017-02-09 19:19 | NUR ---
NO OBVIOUS CHANGES NOTED THIS SHIFT.
[2017-02-09 20:00] VITALS: BP 153/54
--- NOTE | 2017-02-09 20:30 | NUR ---
PT REPOSITIONED IN BED. RESP-EASY AND REGULAR. OXYGEN IN USE. NO C/O AT THIS TIME. TOLERATED ROUTINE MEDS WITH NO PROBLEM. [id number], SEE EMAR. CALL LIGHT IN REACH. SEE SHIFT ASSESSMENT.
--- NOTE | 2017-02-09 22:00 | NUR ---
PT RESTING IN BED WITH EYES CLOSED. OXYGEN IN USE. NO C/O AT THIS TIME. CALL LIGHT IN REACH.
[2017-02-09 23:20] LABS: BILIRUBIN NEGATIVE (NEGATIVE); BLOOD 3+ (NEGATIVE); CLARITY CLOUDY (CLEAR); COLOR YELLOW (YELLOW); GLUCOSE NEGATIVE (NEGATIVE); KETONE NEGATIVE (NEGATIVE); LEUKO ESTERASE 3+ (NEGATIVE); NITRITE NEGATIVE (NEGATIVE); PH 5.5 (5.0-9.0); UROBILINOGEN 0.2 E.U./dl (0.2-1.0)
[2017-02-09 23:35] LABS: RBC TNTC rbc/hpf (0-2); WBC TNTC wbc/hpf (0-5); YEAST 2+
[2017-02-10] VITALS (8 sets, daily range): BP systolic 116–170; BP diastolic 55–91
--- NOTE | 2017-02-10 00:15 | NUR ---
PT RESTING IN BED WITH EYES CLOSED. AWAKENS EASILY. RESP-EASY AND REGULAR. OXYGEN IN USE. NO C/O AT THIS TIME. CALL LIGHT IN REACH. SEE SHIFT ASSESSMENT.
--- NOTE | 2017-02-10 04:00 | NUR ---
SLEEPING IN BED. RESP-EASY AND REGULAR. CALL LIGHT IN REACH.
[2017-02-10 04:50] LABS: HEMATOCRIT 26.4 % (37.0-47.0); HEMOGLOBIN 8.1 g/dl (12.0-16.0); MEAN CORPUSCULAR HGB 28.8 pg (27.0-31.0); MEAN CORPUSCULAR HGB CONC 30.7 g/dl (33.0-37.0); MEAN PLATELET VOLUME 10.5 fl (9.6-12.3); PLATELET COUNT AUTOMATED 285 10*3/uL (130-400); RED BLOOD COUNT 2.81 10*6/uL (4.10-5.10); RED CELL DISTRI WIDTH 14.2 % (0-14.5)
[2017-02-10 05:09] LABS: BASOPHILS 2 % (0-1); PLATELET SUFFICIENCY NORMAL (NORMAL); TOTAL CELLS COUNTED 100 #CELLS
[2017-02-10 05:10] LABS: MICROCYTOSIS SLIGHT
[2017-02-10 05:32] LABS: ALBUMIN 2.1 gm/dl (3.1-4.5); CREATININE 1.81 mg/dL (0.55-1.02); POTASSIUM 4.8 mmol/L (3.5-5.1); TOTAL PROTEIN 6.4 gm/dL (6.4-8.2)
--- NOTE | 2017-02-10 06:00 | NUR ---
PT TOLERATED ROUTINE MED WITH NO PROBLEM [id number], SEE EMAR. REPOSITIONED IN BED. CALL LIGHT IN REACH.
--- NOTE | 2017-02-10 07:14 | NUR ---
DR. CASTRO CALLED COLO/EGD TODAY
--- NOTE | 2017-02-10 09:02 | NUR ---
PHYSICAL THERAPY Kiera seen this AM for her therapy session and wanting her bed matute at this time. When i stopped back nursing was in. Third time Pt's daughter present and Kiera is going down for her colo/EGD. DONNELL FERNANDEZ MAIL CARRIER AND CLERK.
--- NOTE | 2017-02-10 12:35 | NUR ---
PHYSICAL THERAPY Pt seen this PM 1:1 for her therapy. Kiera on her bedpan having diarrhea and ask if i could come back tomorrow. DONNELL FERNANDEZ FRONT MAN.
[2017-02-11] VITALS: BP 102/48
--- NOTE | 2017-02-11 00:15 | NUR ---
24 HR chart check completed.
--- NOTE | 2017-02-11 05:30 | NUR ---
PATIENT STATED SHE CAN MOVE HER LEGS BETTER. STATED SHE CAN TELL THE SWELLING HAS WENT DOWN.
[2017-02-11 05:59] LABS: BASO % 0.2 % (0.0-1.0); EOS # 0.1 10*3/uL (0.0-0.4); EOS % 0.9 % (1.0-4.0); HEMOGLOBIN 8.2 g/dl (12.0-16.0); LYMPH # 1.5 10*3/uL (1.3-4.4); LYMPH % 11.3 % (27.0-41.0); MEAN CELL VOLUME 92.5 fl (81.0-99.0); MEAN CORPUSCULAR HGB 28.1 pg (27.0-31.0); MEAN CORPUSCULAR HGB CONC 30.4 g/dl (33.0-37.0); MONO # 0.8 10*3/uL (0.1-1.0); NEUT # 10.2 10*3/uL (2.3-7.9); NEUT % 80.1 % (47.0-73.0); PLATELET COUNT AUTOMATED 286 10*3/uL (130-400); RED BLOOD COUNT 2.92 10*6/uL (4.10-5.10); RED CELL DISTRI WIDTH 14.3 % (0-14.5); WHITE BLOOD COUNT 12.8 10*3/uL (4.8-10.8)
[2017-02-11 06:19] LABS: ALBUMIN 2.2 gm/dl (3.1-4.5); CREATININE 1.62 mg/dL (0.55-1.02); TOTAL PROTEIN 5.9 gm/dL (6.4-8.2)
[2017-02-11 06:23] LABS: POTASSIUM 3.7 mmol/L (3.5-5.1)
[2017-02-11 08:00] VITALS: BP 124/76
--- NOTE | 2017-02-11 08:33 | NUR ---
PATIENT WAS SLEEPING IN BED AND WAS HARD TO AROUSE FOR ASSESSMENT. PATIENT WAS ALERT AND ORIENT AND WAS COOPERATIVE DURING ASSESSMENT. PATIENT HAD NO COMPLAINTS OF SOB, PAIN, OR DISCOMFORT. WILL CONTINUE TO MONITOE. SEE SHIFT ASSESSMENT. STUDENT NURSE ON FLOOR AND WILL BE DOCUMENTING AND DOING MEDICATION ADMINISTRATION.
--- NOTE | 2017-02-11 09:40 | NUR ---
DR. CARROLL CALLED REGARDING PT BP 122/44 HR-80'S. HOLD METOPROLOL THIS TIME AND MONITOR PT.
--- NOTE | 2017-02-11 10:17 | NUR ---
PHYSICAL THERAPY In this AM to see Kiera for her therapy treatment. Pt had just got up in her bedside chair by nursing and tired at this time. Talked Pt into act Ex to bilateral LE of heel slides, quad sets, ankle pumps and SLR to tolerance in sitting with cueing for each Ex which she did without getting mad. DONNELL FERNANDEZ DATABASE CONSULTANT.
[2017-02-11 12:00] VITALS: BP 124/46
--- NOTE | 2017-02-11 14:14 | NUR ---
Notified [facility] of positive C-diff for isolation purposes. Faxed clinical updates for review.
--- NOTE | 2017-02-11 15:28 | NUR ---
NOTIFIED OFFICE OF FOR CONSULT ON PATIENT FOR C-DIFF.
--- NOTE | 2017-02-11 15:48 | NUR ---
PATIENT IS RESTING IN BED. PATIENT IS HARD TO AROUSE AND FALLS ASLEEP WHILE PERFORMING ASSESSMENT. PATIENT HAS NO MORE COMPLAINTS AT THIS TIME. SEE SHIFT ASSESSMENT.
[2017-02-11 16:00] VITALS: BP 131/58
--- NOTE | 2017-02-11 18:46 | NUR ---
PATIENT IS SLEEPING IN BED. PATIENT SON IS AT THE BEDSIDE. THERE ARE NO COMPLAINTS OF PAIN OR DISCOMFORT AT THIS TIME. SEE SHIFT ASSESSMENT. CALL LIGHT IS WITHIN REACH.
[2017-02-11 20:00] VITALS: BP 137/45
--- NOTE | 2017-02-11 21:48 | NUR ---
PATIENT TEARFUL, ASKING WHERE HER FAMILY IS. PATIENT STATED SHE DOESNT KNOW WHAT SHE WANTS. PATIENT STATED SHE IS JUST TIRED. WILL CONTINUE TO MONITOR. PATIENT LEFT WITH BED ALARM AND CALL LIGHT IN REACH.
[2017-02-12] VITALS: BP 135/48
[2017-02-12 06:06] LABS: BASO % 0.2 % (0.0-1.0); EOS # 0.1 10*3/uL (0.0-0.4); EOS % 0.6 % (1.0-4.0); HEMATOCRIT 26.9 % (37.0-47.0); HEMOGLOBIN 8.2 g/dl (12.0-16.0); LYMPH # 1.1 10*3/uL (1.3-4.4); MEAN CELL VOLUME 92.8 fl (81.0-99.0); MEAN CORPUSCULAR HGB 28.3 pg (27.0-31.0); MEAN CORPUSCULAR HGB CONC 30.5 g/dl (33.0-37.0); MEAN PLATELET VOLUME 10.7 fl (9.6-12.3); MONO # 0.7 10*3/uL (0.1-1.0); MONO % 5.4 % (3.0-9.0); NEUT # 10.5 10*3/uL (2.3-7.9); NEUT % 83.4 % (47.0-73.0); PLATELET COUNT AUTOMATED 272 10*3/uL (130-400); RED CELL DISTRI WIDTH 14.3 % (0-14.5); WHITE BLOOD COUNT 12.6 10*3/uL (4.8-10.8)
[2017-02-12 06:36] LABS: CREATININE 1.63 mg/dL (0.55-1.02); POTASSIUM 3.9 mmol/L (3.5-5.1)
[2017-02-12 08:00] VITALS: BP 154/59
--- NOTE | 2017-02-12 08:45 | NUR ---
PATIENT IS RESTING IN BED, FAMILY MEMBER IS AT THE BEDSIDE. PATIENT VERBALIZES FEELING BETTER TODAY, AND HAS MORE COLOR IN HER FACE. PATIENT DENIES ANY PAIN, DISCOMFORT, OR SOB UPON ASSESSMENT. PATIENT IS RECEIVING 2LPM AND HOB IS ELEVATED TO ASSIST WITH BREATHING. CALL LIGHT IS WITHIN REACH. SEE SHIFT ASSESSMENT.
--- NOTE | 2017-02-12 10:25 | NUR ---
PHYSICAL THERAPY Kiera seen this AM 1:1 for her trherapy session. Pt having C-Diff, mask, glove and gown before treatment. Transfer supine/sit MOD A X 1, and very slow. Sitting balance once up independnet X 4 min. Sit/stand and standing balance MOD A X 1, pivot and double spindle shaper operator front of her chair MOD A X 1, and stand to tolerance then sit to rest. Followed by sit/stand MOD A X 1, followed by marching in place with MOD A X 1. Kiera said that she did not feel safe walking right now. Pt back up in her chair, call light and breakfast. DONNELL FERNANDEZ SENIOR MANAGER MMCOE.
[2017-02-12 12:00] VITALS: BP 128/58
--- NOTE | 2017-02-12 13:21 | NUR ---
PATIENT IS SITTING UP IN THE CHAIR. PATIENT HAS A FAMILY MEMBER AT THE BEDSIDE. PATIENT HAS ADVANCED FROM A FULL LIQUID DIET TO A CARDIAC DIET. PATIENT DENIES ANY PAIN OR DISCOMFORT AT THIS TIME. CALL LIGHT IS WITHIN REACH. SEE SHIFT ASSESSMENT.
[2017-02-12 16:00] VITALS: BP 135/49
--- NOTE | 2017-02-12 18:52 | NUR ---
PATIENT IS RESTING IN THE BED. PATIENT WAS ABLE TO TRANSFER FROM CHAIR TO BED WITH 2 ASSIST. PATIENT ATTEMPTED TO USE WALKER BUT WAS UNSUCCESSFUL. PATIENT DENIES ANY PAIN OR DISCOMFORT. RASH HAS GONE DOWN ON THE LEGS AND ABDOMEN, BUT REMAINS ON THE BACK, ARMPITS AND GROIN. CALL LIGHT WITHIN REACH. SEE SHIFT ASSESSSMENT.
[2017-02-12 20:00] VITALS: BP 154/57
[2017-02-13] VITALS: BP 153/54
--- NOTE | 2017-02-13 | NUR ---
SLEEPING; AROUSES EASILY FOR ASSESSMENT. 02 INTACT AT 2 LPM VIA NASAL CANNULA. NO DISTRESS NOTED. CALL LIGHT WITHIN REACH.
--- NOTE | 2017-02-13 06:30 | NUR ---
BLOOD SUGAR 233; COVERAGE GIVEN PER EMAR.
[2017-02-13 06:47] LABS: BASO # 0.1 10*3/uL (0.0-0.1); BASO % 0.4 % (0.0-1.0); EOS # 0.3 10*3/uL (0.0-0.4); EOS % 2.4 % (1.0-4.0); HEMATOCRIT 27.1 % (37.0-47.0); HEMOGLOBIN 8.2 g/dl (12.0-16.0); LYMPH # 1.1 10*3/uL (1.3-4.4); LYMPH % 9.8 % (27.0-41.0); MEAN CELL VOLUME 93.1 fl (81.0-99.0); MEAN CORPUSCULAR HGB 28.2 pg (27.0-31.0); MEAN CORPUSCULAR HGB CONC 30.3 g/dl (33.0-37.0); MEAN PLATELET VOLUME 10.2 fl (9.6-12.3); MONO # 0.6 10*3/uL (0.1-1.0); MONO % 4.9 % (3.0-9.0); NEUT # 9.3 10*3/uL (2.3-7.9); PLATELET COUNT AUTOMATED 246 10*3/uL (130-400); RED BLOOD COUNT 2.91 10*6/uL (4.10-5.10); RED CELL DISTRI WIDTH 14.6 % (0-14.5); WHITE BLOOD COUNT 11.5 10*3/uL (4.8-10.8)
[2017-02-13 07:14] LABS: CREATININE 1.43 mg/dL (0.55-1.02); POTASSIUM 4.2 mmol/L (3.5-5.1)
[2017-02-13 08:00] VITALS: BP 145/49
--- NOTE | 2017-02-13 09:01 | NUR ---
PHYSICAL THERAPY Patient presented to therapy with report of feeling better and wanting to walk. Patient performed supine to sitting at EOB with Min. A X 1. Patient sat at EOB with CGA X 1 AND VERBAL CUES FOR PATIENT TO HOLD ONTO TO BED RAILING. Patient performed sit to stand with CGA X 1 to Min. A X 1. Patient stood at W/W with CGA X 1 for 2 minutes. Patient was verbal cued for locking her knees. Patient ambulated 4 ft. with Rollalator walker with CGA X 1. Patient then backed up to to bedside chair and sat with CGA X 1. Patient performed ther ex in seated position x 20 reps in all planes of mvmt. Patient was 1:1 with this FAMILY MEDICINE RESIDENT for 25 minutes total. Patient has spO2 AND HAS A CATHETHER. PATIENT WAS LEFT IN SEATED POSITION WITH CALL LIGHT WITHIN REACH. Nicko Greene FAMILY MEDICINE RESIDENT
[2017-02-13 12:00] VITALS: BP 148/54
--- NOTE | 2017-02-13 12:09 | NUR ---
Due to isolation precautions, patient will not have a private room at [facility] until tomorrow 02/14/17
[2017-02-13 16:00] VITALS: BP 151/49
[2017-02-13 20:00] VITALS: BP 155/49
--- NOTE | 2017-02-13 22:00 | NUR ---
BLOOD SUGAR 253; 6 UNITS OF COVERAGE PROVIDED PER EMAR.
--- NOTE | 2017-02-13 22:40 | NUR ---
PULSE OX 88% ON ROOM AIR; PUT PT. ON .
[2017-02-14] VITALS: BP 162/66
--- NOTE | 2017-02-14 | NUR ---
PULSE OX 97% ON 2 LITERS.
--- NOTE | 2017-02-14 05:35 | NUR ---
MEDICATED WITH 2 TYLENOL FOR C/O GENERALIZED DISCOMFORT.
--- NOTE | 2017-02-14 06:00 | NUR ---
BLOOD SUGAR 224; COVERAGE GIVEN PER EMAR.
[2017-02-14 07:13] LABS: BASO % 0.4 % (0.0-1.0); EOS # 0.3 10*3/uL (0.0-0.4); EOS % 2.9 % (1.0-4.0); HEMATOCRIT 28.5 % (37.0-47.0); HEMOGLOBIN 8.8 g/dl (12.0-16.0); LYMPH % 8.9 % (27.0-41.0); MEAN CELL VOLUME 93.4 fl (81.0-99.0); MEAN CORPUSCULAR HGB 28.9 pg (27.0-31.0); MEAN CORPUSCULAR HGB CONC 30.9 g/dl (33.0-37.0); MEAN PLATELET VOLUME 10.7 fl (9.6-12.3); MONO # 0.6 10*3/uL (0.1-1.0); MONO % 5.2 % (3.0-9.0); NEUT # 9.2 10*3/uL (2.3-7.9); PLATELET COUNT AUTOMATED 264 10*3/uL (130-400); RED BLOOD COUNT 3.05 10*6/uL (4.10-5.10); RED CELL DISTRI WIDTH 14.6 % (0-14.5); WHITE BLOOD COUNT 11.3 10*3/uL (4.8-10.8)
[2017-02-14 07:49] LABS: CREATININE 1.46 mg/dL (0.55-1.02); POTASSIUM 4.1 mmol/L (3.5-5.1)
[2017-02-14 08:00] VITALS: BP 152/58
--- NOTE | 2017-02-14 08:00 | NUR ---
RESTING QUIETLY NO C/O NO DISTRESS NOTED. SOSA PATENT FOR HILARIO URINE. PICC LINE INTACT TO RIGHT ARM. SEE SHIFT ASSESSMENT.
--- NOTE | 2017-02-14 09:39 | NUR ---
[facility] has an isolation bed for this patient. She can be discharged today
[2017-02-14 12:00] VITALS: BP 132/49
[2017-02-14] MEDS ORDERED: PACERONE200 MG PO (14:06)
[2017-02-14] MEDS ORDERED: FUROSEMIDE40 MG PO (14:06)
[2017-02-14] MEDS ORDERED: Nystatin Cream15 GM T (14:06)
[2017-02-14] MEDS ORDERED: MIRTAZAPINE15 M2 PO (14:06)
[2017-02-14] MEDS ORDERED: XARE15TA PO (14:06)
[2017-02-14] MEDS ORDERED: FLUCONAZOLE100 MG PO (14:06)
[2017-02-14] MEDS ORDERED: HYDR1%LOT T (14:06)
[2017-02-14] MEDS ORDERED: VANCOMYCIN250 MG/2.5 PO (14:06)
--- NOTE | 2017-02-14 14:16 | NUR ---
PHYSICAL THERAPY CO-SIGN I approve of the Phyical Therapy notes written above. TIEN PAN PT
--- NOTE | 2017-02-14 15:00 | NUR ---
Patient is being discharged back to [facility], transportation scheduled for 4PM. NH and nursing notified.
--- NOTE | 2017-02-14 15:44 | NUR ---
REPORT CALLED TO KARELY.
--- NOTE | 2017-02-14 15:55 | NUR ---
DISCHARGED TO [facility] VIA AMBLUANCE.
[2017-02-15] MEDS ORDERED: LANTUS SOL100 UNIT/1 SQ (23:21)
== END 2017-02-14 15:50 | disposition home or self-care (01) | DRG 871 ==
LOC: ED 19:14 → EDHOLD 22:27 → 4E 22:27 → ICCU 22:45 → 4E 02-02 17:46
PROVIDERS: Emergency Medicine Emergency Medical Services; Family Medicine; Internal Medicine; Internal Medicine Critical Care Medicine; Internal Medicine Nephrology; ADMIT Internal Medicine
PROC: 0DB78ZX Excision of Stomach, Pylorus, Via Natural or Artificial Opening Endoscopic, Diagnostic (ICD-10-PCS; 2017-01-31)
PROC: 0DBE8ZX Excision of Large Intestine, Via Natural or Artificial Opening Endoscopic, Diagnostic (ICD-10-PCS; 2017-01-31)
PROC: 5A09357 Assistance with Respiratory Ventilation, Less than 24 Consecutive Hours, Continuous Positive Airway Pressure (ICD-10-PCS; 2017-01-31)
PROC: 06HN33Z Insertion of Infusion Device into Left Femoral Vein, Percutaneous Approach (ICD-10-PCS; 2017-02-03)
PROC: 02HV33Z Insertion of Infusion Device into Superior Vena Cava, Percutaneous Approach (ICD-10-PCS; principal; 2017-02-04)
PROC: 30243N1 Transfusion of Nonautologous Red Blood Cells into Central Vein, Percutaneous Approach (ICD-10-PCS; 2017-02-04)
DX: A41.9 Sepsis, unspecified organism (principal); N17.0 Acute kidney failure with tubular necrosis; J96.21 Acute and chronic respiratory failure with hypoxia; E43 Unspecified severe protein-calorie malnutrition; I50.33 Acute on chronic diastolic (congestive) heart failure; N18.4 Chronic kidney disease, stage 4 (severe); J18.9 Pneumonia, unspecified organism; I13.0 Hypertensive heart and chronic kidney disease with heart failure and stage 1 through stage 4 chronic kidney disease, or unspecified chronic kidney disease; J44.0 Chronic obstructive pulmonary disease with (acute) lower respiratory infection; I48.0 Paroxysmal atrial fibrillation; J96.22 Acute and chronic respiratory failure with hypercapnia; N39.0 Urinary tract infection, site not specified; A04.72 Enterocolitis due to Clostridium difficile, not specified as recurrent; F33.9 Major depressive disorder, recurrent, unspecified; D63.1 Anemia in chronic kidney disease; B37.9 Candidiasis, unspecified; E78.00 Pure hypercholesterolemia, unspecified; E66.9 Obesity, unspecified; E78.5 Hyperlipidemia, unspecified; R65.20 Severe sepsis without septic shock; F41.1 Generalized anxiety disorder; K21.9 Gastro-esophageal reflux disease without esophagitis; I16.0 Hypertensive urgency; K25.9 Gastric ulcer, unspecified as acute or chronic, without hemorrhage or perforation; E11.22 Type 2 diabetes mellitus with diabetic chronic kidney disease; I25.10 Atherosclerotic heart disease of native coronary artery without angina pectoris; E21.3 Hyperparathyroidism, unspecified; Z98.61 Coronary angioplasty status; Y95 Nosocomial condition; Z88.8 Allergy status to other drugs, medicaments and biological substances; Z79.4 Long term (current) use of insulin; I25.2 Old myocardial infarction; Z87.440 Personal history of urinary (tract) infections; Z98.42 Cataract extraction status, left eye; Z98.41 Cataract extraction status, right eye; Z90.710 Acquired absence of both cervix and uterus; Z82.49 Family history of ischemic heart disease and other diseases of the circulatory system; Z82.3 Family history of stroke; Z83.3 Family history of diabetes mellitus; Z79.82 Long term (current) use of aspirin; Z79.899 Other long term (current) drug therapy; Z68.36 Body mass index [BMI] 36.0-36.9, adult; Z91.81 History of falling; T39.015A Adverse effect of aspirin, initial encounter; Y92.89 Other specified places as the place of occurrence of the external cause

== ENCOUNTER 2017-02-15 19:11 | Inpatient (IN) | payer MEDICARE, OTHER ==
[~2017-02-15] VITALS: Ht 162.5 cm; Wt 96.2 kg
[2017-02-15] VITALS (7 sets, daily range): BP systolic 110–151; BP diastolic 47–54
[~2017-02-15 19:11] MED LIST changes: +ACETAMINOPHEN650 M5 PO; +FLUCONAZOLE100 MG PO; +HYDR1%LOT T; +LANTUS SOL100 UNIT/1 SC; +MIRTAZAPINE15 M2 PO; +Nystatin Cream15 GM T; +VANCOMYCIN250 MG/2.5 PO; +XARE15TA PO
[2017-02-15 20:08] LABS: BASO % 0.2 % (0.0-1.0); EOS # 0.2 10*3/uL (0.0-0.4); EOS % 1.5 % (1.0-4.0); HEMATOCRIT 27.8 % (37.0-47.0); HEMOGLOBIN 8.4 g/dl (12.0-16.0); LYMPH # 0.8 10*3/uL (1.3-4.4); LYMPH % 5.3 % (27.0-41.0); MEAN CELL VOLUME 93.9 fl (81.0-99.0); MEAN CORPUSCULAR HGB 28.4 pg (27.0-31.0); MEAN CORPUSCULAR HGB CONC 30.2 g/dl (33.0-37.0); MEAN PLATELET VOLUME 9.8 fl (9.6-12.3); MONO # 0.8 10*3/uL (0.1-1.0); MONO % 4.8 % (3.0-9.0); NEUT # 13.7 10*3/uL (2.3-7.9); NEUT % 87.4 % (47.0-73.0); PLATELET COUNT AUTOMATED 282 10*3/uL (130-400); RED BLOOD COUNT 2.96 10*6/uL (4.10-5.10); RED CELL DISTRI WIDTH 14.8 % (0-14.5); WHITE BLOOD COUNT 15.7 10*3/uL (4.8-10.8)
[2017-02-15 20:24] LABS: BUN 26 mg/dl (7-24); CHLORIDE 101 mmol/L (98-107); CREATININE 1.58 mg/dL (0.55-1.02); POTASSIUM 4.3 mmol/L (3.5-5.1); SODIUM 140 mmol/L (136-145)
[2017-02-15 20:26] LABS: TROPONIN I < 0.015 ng/ml (<0.045)
--- NOTE | 2017-02-15 22:34 | NUR ---
ATTEMPTED TO CALL REPORT. NURSE UNAVAILABLE TO GET REPORT AT THIS TIME.
--- NOTE | 2017-02-15 22:55 | NUR ---
A 81, admitted to , under the services of ALBAN Henry DO with a diagnosis of ALTERED SENSORISM DUE TO HYPOGLYCEMIA. Chief complaint is LOW BP. Patient arrived via bed from ER. Monitor applied. Initial assessment completed. Vital signs taken and recorded. ALBAN HENRY DO notified of admission to the unit. Orders received. See assessment for past medical history, medications and allergies. Patient and/or family oriented to unit. [facility] Clothing/patient valuable form completed. CAITY SADLER
[2017-02-15] MEDS ORDERED: LANTUS SOL100 UNIT/1 SQ (23:21)
--- NOTE | 2017-02-15 23:25 | NUR ---
MED REC UPDATED VIA LIST FROM [facility]
--- NOTE | 2017-02-16 02:13 | NUR ---
PATIENT SLEEPING. RESPIRATIONS EASY/REGULAR. NO SXS OF DISTRESS. FLUIDS MAINTAINED PER ORDER. CALL LIGHT IN REACH. WILL MONITOR.
--- NOTE | 2017-02-16 03:31 | NUR ---
PATIENT MEDICATED WITH PRN NORCO ORDERED FOR C/O NECK AND BACK PAIN RATED A 9.
--- NOTE | 2017-02-16 04:30 | NUR ---
PATIENT STATES EARLIER NORCO WAS EFFECTIVE IN DECREASING NECK AND BACK PAIN.
--- NOTE | 2017-02-16 05:47 | NUR ---
PATIENT STATES SHE FEELS MUCH BETTER THAN WHEN SHE CAME IN HERE. SHE STATES SHE THOUGHT SHE WAS DONE WITH THIS PLACE. RESPIRATIONS EASY/REG. FLUIDS MAINTAINED PER ORDER. CALL LIGHT IN REACH.
[2017-02-16 06:03] LABS: BASO % 0.3 % (0.0-1.0); EOS # 0.3 10*3/uL (0.0-0.4); EOS % 2.7 % (1.0-4.0); HEMATOCRIT 27.7 % (37.0-47.0); HEMOGLOBIN 8.4 g/dl (12.0-16.0); LYMPH % 10.4 % (27.0-41.0); MEAN CELL VOLUME 94.5 fl (81.0-99.0); MEAN CORPUSCULAR HGB 28.7 pg (27.0-31.0); MEAN CORPUSCULAR HGB CONC 30.3 g/dl (33.0-37.0); MEAN PLATELET VOLUME 10.1 fl (9.6-12.3); MONO # 0.7 10*3/uL (0.1-1.0); MONO % 7.8 % (3.0-9.0); NEUT # 7.4 10*3/uL (2.3-7.9); NEUT % 77.9 % (47.0-73.0); PLATELET COUNT AUTOMATED 263 10*3/uL (130-400); RED BLOOD COUNT 2.93 10*6/uL (4.10-5.10); RED CELL DISTRI WIDTH 14.9 % (0-14.5); WHITE BLOOD COUNT 9.5 10*3/uL (4.8-10.8)
[2017-02-16 06:41] LABS: ALBUMIN 2.1 gm/dl (3.1-4.5); CREATININE 1.46 mg/dL (0.55-1.02); MAGNESIUM 2.2 mg/dL (1.5-2.1); PHOSPHOROUS 4.3 mg/dL (2.5-4.9); POTASSIUM 3.5 mmol/L (3.5-5.1); TOTAL PROTEIN 5.8 gm/dL (6.4-8.2)
[2017-02-16 08:00] VITALS: BP 147/56
--- NOTE | 2017-02-16 08:00 | NUR ---
RESTING QUIETLY NO C/O NO DISTRESS NOTED. HOB ELEVATED WITH O2 ON. IV FLUIDS INFUSING. SEE SHIFT ASSESSMENT.
--- NOTE | 2017-02-16 11:30 | NUR ---
PT JOSE E CALLED AND VOICED CONCERNS ABOUT PT GOING BACK TO [facility]. STATES THEY DO NOT WANT PT TO GO BACK TO [facility], THEY WANT TO TALK WITH SS TO GET HER MOVED SOMEWHERE ELSE. EXPLAINED THAT SS WOULD NOT BE HERE UNTIL TOMORROW. WANTS MD ASK IF PT COULD STAY UNTIL TOMORROW WHEN THEY COULD TALK WITH SS. DR ALONSO NOTIFIED.
--- NOTE | 2017-02-16 11:30 | NUR ---
DR MORALEZ MADE ROUNDS AND DISCUSSED SENDING PT BACK TO [facility]. PT AGREEABLE.
[2017-02-16 12:00] VITALS: BP 154/91
[2017-02-16 16:00] VITALS: BP 145/56
[2017-02-16 20:00] VITALS: BP 147/44
--- NOTE | 2017-02-16 20:00 | NUR ---
ASSUMED CARE OF PATIENT. ASSESSMENT COMPLETE. RESTING IN BED. NO VOICED COMPLAINTS. CALL LIGHT IN REACH. WILL CONTINUE TO MONITOR.
[2017-02-17] VITALS: BP 140/52
--- NOTE | 2017-02-17 02:00 | NUR ---
SLEEPING. RESP EASY AND NONLABORED ON 2L NC. NO DISTRESS NOTED. CALL LIGHT IN REACH. WILL CONTINUE TO MONITOR.
--- NOTE | 2017-02-17 02:11 | NUR ---
PT RECEIVED 650 MG TYLENOL FOR BACK PAIN RATED 8/10.
--- NOTE | 2017-02-17 03:00 | NUR ---
PT IS RESTING COMFORTABLY POST TYLENOL ADMINISTRATION.
--- NOTE | 2017-02-17 07:20 | NUR ---
DAUGHTER CALLED THIS AM. REQUESTS [facility]. STATES SHE HAS ALREADY SPOKEN TO THEM. NURSE CURRICULUM AND ASSESSMENT DIRECTOR FOR HOSP AWARE. DC POULTRY TRIMMER AWARE.
[2017-02-17 08:00] VITALS: BP 156/50
--- NOTE | 2017-02-17 09:24 | NUR ---
Patients daughter called this morning and asked if we would make a referral to [facility] because the "halfway" is not working out. patient returns to hospital within 24 hours of discharge. Contacted [facility] and faxed referral. waiting on acceptance.
--- NOTE | 2017-02-17 09:38 | NUR ---
PHYSICAL THERAPY PAtient evaluated on 5, full evaluation to follow. Continue with PT as per plan of care with fall, mod (a), KNEES BUCKEL, 02 AND ACUTE DEBILITY PRECAUTIONS. Will require SNF for impaired mobility. PAtient is high complexity via chart review, tests and evaluation: 31473. Thank you for this referral. Alexandra Winters,PT
--- NOTE | 2017-02-17 10:53 | NUR ---
Spoke on the phone with patients daughter, Dafne. She stated she is very upset and doesn't want her mother referred to another custodial, stating they are all the same and her mother will just be right back in here. Has multiple complaints. Referred her to speak with Mandi, nurse director of hospitalists.
--- NOTE | 2017-02-17 11:24 | NUR ---
Nurse Director Mandi spoke with the patient's daughter Dafne about discharge planning after she had spoken with SONA Apple. Spoke at length about why she didn't qualify for LTACH (which patient's daughter doesn't want because it is only 3-4 weeks & that is not [place] [facility].) Attempted to explain that transferring to another hospital is going to be difficult as it would be a lateral transfer. Explained that transfers are reserved for higher level of care, specialists not available at this loccation. Both of these options were discussed at length. Discussed that the assisted living is not the best option for her mom is a fall risk and her knees are buckling. Daughter agreed. Discussed that some of the options are owned by the same company. She is going to look into the opitons and get back to us.
[2017-02-17 12:00] VITALS: BP 154/53
--- NOTE | 2017-02-17 12:51 | NUR ---
PHYSICAL THERAPY Mrs Gutiérrez seen this PM 1:1 for her physical therapy session. Pt having C-diff, mask, glove and gown. Pt was up in her bedside chair went over Pt's act Ex to bilateral LE and why she is so weak. Transfer sit/stand and up on the third try MAX A X 1, standing balance once up MOD A X 1, with wheeled walker stand to tolerance X 2, one sitting rest. Then gait just 2 steps forward and back and sit due to weakness, did this X 2 MAX A X 1. End with going over act Ex to bilateral LE of marching, LAQ's, ankle pumps with much cueing, Pt on 3 L o2. DONNELL FERNANDEZ SUPPORT TEAM ASSOC.
--- NOTE | 2017-02-17 13:36 | NUR ---
Recived message from Mandi nurse director of hospitalists that 'isa do not feel patient needs LTACH. Upon calling [facility] to cancel the referral, they had already looked over criteria and stated she doesn't qualify at this time.
--- NOTE | 2017-02-17 14:34 | NUR ---
Patients sister Dafne called and stated she spoke to yessi casiano regarding placement into the rehab suites and yessi said to fax referral. Contacted Yessi who stated that is not true, she explained to Dafne that this patient is not approprate for rehab suites and they have no beds available. Will contact patients sister and inform her rehab suites is not an option.
[2017-02-17 16:00] VITALS: BP 131/41
[2017-02-17 20:00] VITALS: BP 142/56
[2017-02-18] VITALS: BP 132/47
--- NOTE | 2017-02-18 01:04 | NUR ---
PATIENT RESTING IN BED WITH EYES CLOSED. NO SIGNS OR SYMPTOMS OF DISTRESS NOTED. AROUSES TO VERBAL STIMULI. MEDS TAKEN PO IN APPLESAUCE. DENIES COMPLAINTS OF PAIN OR DISCOMFORT. WILL CONTINUE TO MONITOR. CALL LIGHT IN REACH.
--- NOTE | 2017-02-18 06:12 | NUR ---
CALLED AND SPOKE TO DR MARQUEZ REGARDING NO ORDER FOR USE OF PICC LINE. ORDER RECEIVED.
[2017-02-18 06:29] LABS: BASO % 0.2 % (0.0-1.0); EOS # 0.3 10*3/uL (0.0-0.4); EOS % 2.8 % (1.0-4.0); HEMATOCRIT 27.9 % (37.0-47.0); HEMOGLOBIN 8.4 g/dl (12.0-16.0); LYMPH # 0.8 10*3/uL (1.3-4.4); LYMPH % 8.4 % (27.0-41.0); MEAN CELL VOLUME 94.6 fl (81.0-99.0); MEAN CORPUSCULAR HGB 28.5 pg (27.0-31.0); MEAN CORPUSCULAR HGB CONC 30.1 g/dl (33.0-37.0); MONO # 0.7 10*3/uL (0.1-1.0); MONO % 7.8 % (3.0-9.0); NEUT # 7.1 10*3/uL (2.3-7.9); NEUT % 79.8 % (47.0-73.0); PLATELET COUNT AUTOMATED 266 10*3/uL (130-400); RED BLOOD COUNT 2.95 10*6/uL (4.10-5.10); RED CELL DISTRI WIDTH 14.9 % (0-14.5); WHITE BLOOD COUNT 8.9 10*3/uL (4.8-10.8)
--- NOTE | 2017-02-18 06:43 | NUR ---
PATIENT MEDICATED WITH TYLENOL AT 0438 FOR COMPLAINTS OF PAIN WITH EFFECTIVE RESULTS NOTED. RESTING IN BED WITH EYES CLOSED AT THIS TIME. WILL CONTINUE TO MONITOR. CALL LIGHT IN REACH.
[2017-02-18 06:59] LABS: CREATININE 1.46 mg/dL (0.55-1.02); POTASSIUM 4.4 mmol/L (3.5-5.1)
[2017-02-18 08:00] VITALS: BP 128/72
--- NOTE | 2017-02-18 08:46 | NUR ---
Discussed discharge options with daughter, tosha. Explained this patient is not appropriate for rehab suites and there is no availability at this time, a plan for discharge is needed. She stated patient will return to [facility]. Sandy Boucher from [facility] stated patient is ok to return when medically stable for discharge.
--- NOTE | 2017-02-18 10:54 | NUR ---
0740 Family in stated pt was having back pain , Tylenol not again due repeat dose given at 0830. Update on glucose level given. Pt. remains awake and alert . Currently states pain has improved and that she is awaiting Physical therapy.
[2017-02-18 12:00] VITALS: BP 150/51
--- NOTE | 2017-02-18 12:26 | NUR ---
Patient is being discharged back to [facility] in [place], transportation scheduled for 4PM with [facility]. NH, nursing notified.
--- NOTE | 2017-02-18 13:27 | NUR ---
PHYSICAL THERAPY Patient presented to therapy with report of being discharged to [facility] today. Patient performed supine to sitting at EOB with Moderate to Maximum Assistance x 1. Patient performed sit to stand with Maximum A x 1 and stand pivot to chair with Max A x 1. Patient performed seated ther ex in all planes x 20 reps each. Patient is on 3 liters of spO2 and has 100% O2 saturation. Patient's B/P was 150/51 in L UE. Patient was 1:1 with this CORPORATE FINANCIAL ANALYST for 25 minutes. Patient was left in seated position with call light within reach. Nicko Greene CORPORATE FINANCIAL ANALYST
--- NOTE | 2017-02-18 14:56 | NUR ---
Discharge order recieved. Remians up in chair at this time discharge time 1600
--- NOTE | 2017-02-18 15:03 | NUR ---
Report was called to Domenic SWATRZ
--- NOTE | 2017-02-18 15:56 | NUR ---
PICC line removed from NADINE pressure held for 5 min. pressure dressing applied. Ambulance here for transport.
--- NOTE | 2017-02-18 16:02 | NUR ---
PHYSICAL THERAPY CO-SIGN I approve of the Phyical Therapy notes written above. TIEN PAN PT
== END 2017-02-18 16:00 | disposition home or self-care (01) | DRG 314 ==
LOC: ED 19:11 → 5E 22:06 → EDHOLD 22:06 → 5E 22:17
PROVIDERS: Emergency Medicine Emergency Medical Services; Hospitalist; Internal Medicine; ADMIT Internal Medicine
DX: I95.9 Hypotension, unspecified (principal); E43 Unspecified severe protein-calorie malnutrition; A04.72 Enterocolitis due to Clostridium difficile, not specified as recurrent; E11.22 Type 2 diabetes mellitus with diabetic chronic kidney disease; N18.4 Chronic kidney disease, stage 4 (severe); E11.649 Type 2 diabetes mellitus with hypoglycemia without coma; I48.91 Unspecified atrial fibrillation; E83.41 Hypermagnesemia; R13.10 Dysphagia, unspecified; I13.0 Hypertensive heart and chronic kidney disease with heart failure and stage 1 through stage 4 chronic kidney disease, or unspecified chronic kidney disease; I50.9 Heart failure, unspecified; J44.9 Chronic obstructive pulmonary disease, unspecified; B37.9 Candidiasis, unspecified; D63.1 Anemia in chronic kidney disease; D72.810 Lymphocytopenia; I25.10 Atherosclerotic heart disease of native coronary artery without angina pectoris; K21.9 Gastro-esophageal reflux disease without esophagitis; E78.00 Pure hypercholesterolemia, unspecified; F41.1 Generalized anxiety disorder; E66.9 Obesity, unspecified; Z79.4 Long term (current) use of insulin; Z87.01 Personal history of pneumonia (recurrent); Z88.8 Allergy status to other drugs, medicaments and biological substances; Z91.81 History of falling; I25.2 Old myocardial infarction; Z98.42 Cataract extraction status, left eye; Z98.41 Cataract extraction status, right eye; Z98.61 Coronary angioplasty status; Z90.710 Acquired absence of both cervix and uterus; Z82.49 Family history of ischemic heart disease and other diseases of the circulatory system; Z84.1 Family history of disorders of kidney and ureter; Z82.3 Family history of stroke; Z83.3 Family history of diabetes mellitus; Z79.899 Other long term (current) drug therapy

== ENCOUNTER 2017-03-15 11:26 | Inpatient (IN) | payer MEDICARE, OTHER ==
[2017-03-15] VITALS (7 sets, daily range): BP systolic 121–171; BP diastolic 52–90
[~2017-03-15] VITALS: Ht 162.5 cm; Wt 92.7 kg
--- NOTE | ~2017-03-15 | PR ---
[place], [place] PROGRESS NOTE NAME: MUSA GARCIA UNIT #: [id number] ROOM: 518 DOCTOR: DAVIS SEVILLA MD,JANNIE BIRTHDATE: [birth year] DOS: 03/17/2017 SUBJECTIVE: She has been noted with decreased consciousness at this time and noted sleepy and drowsy. The patient has been ordered the arterial blood gas by the primary care attending, but the family does not wish to proceed with further assessment at this time and like the patient to become comfortable. She has been continued diuretic therapy. OBJECTIVE: VITAL SIGNS: Normal temperature recorded this morning, respirations 18, heart rate 76, blood pressure ____/62, pulse oxygen saturation 2.5 liter nasal cannula 94% saturation recorded. HEENT: Chronic obesity. NECK: Supple. CARDIOVASCULAR: S1, S2 audible. LUNGS: Noted with decreased breath sounds bilaterally, scattered crackles without any wheezing. ABDOMEN: Soft, nontender. IMPRESSION: The patient recurrent acute congestive heart failure with bilateral pleural fluid and recurrent hospitalization, change in mental status may be related to hypercarbia. The reasons cannot be completely excluded. PLAN OF MANAGEMENT: Discussion with the 2 daughters. The patient has been done for the patient. They like the patient to be kept comfortable for possible assessment for the hospice care, which would be appropriate. In the meantime, palliative care. We will continue to be provided. Other supportive plan of management and therapies. JANNIE CANNON MD CM:PNTRANS [id number] JANNIE SEVILLA MD 03/18/17 0017 interface
--- NOTE | ~2017-03-15 | CON ---
[place], [place] REPORT OF CONSULTATION NAME: [facility] [id number] UNIT #: [id number] ROOM: 518 DOCTOR: DAVE RAMEY MD BIRTHDATE: [birth year] DOS: REQUESTING PHYSICIAN: Dr. Arriola. INDICATION: Congestive heart failure/pulmonary edema. ASSESSMENT: 1. Current presentation for progressive shortness of breath, dyspnea on exertion along with weight gain. 2. Orthopnea and paroxysmal nocturnal dyspnea. 3. Significant bilateral lower extremity edema, more so on the right than the left. 4. CT scan of the chest showing evidence of pulmonary edema. 5. Chest x-ray with large bilateral pleural effusion. 6. Diabetes/hypertension/hyperlipidemia. 7. Echocardiogram in December [address] Moore, stage 2 diastolic dysfunction with normal left ventricular function. 8. Paroxysmal atrial fibrillation, currently in normal sinus rhythm on amiodarone and Xarelto. 9. Obesity with probable obstructive sleep apnea. 10. Coronary artery disease with supposedly fixed stent placed, but no record available to me at this time in [facility]. PLAN: 1. Cycle cardiac enzymes. 2. Bilateral lower extremity Doppler. 3. Aggressive diuresis. 4. Daily weights and I's and O's. 5. Consider Nephrology consult. 6. Low-salt diet. 7. Obtain old record from [facility], regarding previous stents placed. 8. I will hold on further cardiac testing at this time, pending the information about patient's previous workup in [facility]. HISTORY OF PRESENT ILLNESS: The patient is a pleasant 81-year-old female well known to our practice with Dr. Willett and Dr. Moore. Apparently, the patient carries a history of coronary artery disease with 6 stents placed previously, most of the history was obtained from the patient's daughter who was present at time of this examination. The patient was noticed over the past 1-2 months, had been gaining weight, almost about 5-pound a week along with shortness of breath, dyspnea on exertion, the patient used to be quite active at home and still goes shopping, but she noticed like she has absolutely no energy. PND and orthopnea did develop recently along with chills and cough, but nonproductive so far. Significant decrease in appetite. Overall, significant weight gain with that. The patient on presentation at no time, the patient has any cardiac complaint, chest pain, chest pressure, heaviness, tightness, left arm pain or jaw pain. The patient denies any symptomatic palpitation or any associated dizziness, lightheadedness or near syncope. The patient admits to chills, but no fever, no night sweats. [place], [place] REPORT OF CONSULTATION NAME: MUSA GARCIA UNIT #: [id number] ROOM: 518 DOCTOR: DAVE RAMEY MD BIRTHDATE: [birth year] PAST MEDICAL HISTORY: As detailed in my assessment. SOCIAL HISTORY: The patient denies ever any tobacco, alcohol or illicit drug abuse. FAMILY HISTORY: Not applicable in view of patient age. CURRENT MEDICATIONS: Rocephin, insulin, potassium, Imdur, Levemir, Bumex, Lipitor, amiodarone, Protonix, Carafate, Xarelto, Remeron, Toprol, Neurontin, Restoril, Zofran, bisacodyl, Tylenol. ALLERGIES: THE PATIENT IS ALLERGIC TO ACTOS. REVIEW OF SYSTEMS: Currently, the patient denies any headache, diplopia or blurry vision. No fever. Admits to chills, but no night sweats, no abdominal pain, no bright blood per rectum, no tarry stools. The patient admits to joint pain and muscular pain. No anxiety, no depression, no polyuria, no polydipsia, no skin rash. Review of the systems has been negative. PHYSICAL EXAMINATION: GENERAL: The patient alert and physical pleasant, very sleepy, sitting up in bed, respond quickly and appropriately to questions. VITAL SIGNS: Blood pressure 150/54, heart rate 67, respiration rate of 18, temperature 98. HEENT: Extraocular muscles intact. Pupils are equal, round and reactive to light. Conjunctivae: No pallor. Throat: No petechiae. NECK: Good upstroke. Unable to appreciate any bruit, no lymphadenopathy, no thyromegaly. HEART: S1, S2 with holosystolic murmur in the left upper sternal border. No rub, no sternal heave. CHEST AND BACK: No deformities. LUNGS: Significant decrease in air movement. There is rhonchi could be heard at the base, significant decrease air movement also at the base. ABDOMEN: Distended, obese, soft, nontender, present very faint bowel sounds. No masses, no bruits. This is very limited exam. LOWER EXTREMITIES: Significant edema, more so on the right than the left with faint distal pulses. NEUROLOGIC: Grossly nonfocal. SKIN: No significant rash. DIAGNOSTIC DATA: Electrocardiogram showed normal sinus rhythm with evidence of an old inferior septal LA, nonspecific ST changes with low voltage QRS. LABORATORY DATA: White count 9.1, hemoglobin 8.6. There is left shift 81%. INR 1.2, potassium 5.2, creatinine 1.7, GFR 29%. [place], [place] REPORT OF CONSULTATION NAME: MUSA GARCIA UNIT #: [id number] ROOM: 518 DOCTOR: DAVE RAMEY MD BIRTHDATE: [birth year] DAVE RAMEY MD CM:CONSTR:REPORT OF CONSULTATION 1130 03/16/17 2001 interface
--- NOTE | ~2017-03-15 | CON ---
[place], [place] REPORT OF CONSULTATION NAME: MUSA GARCIA [facility] #: [id number] UNIT #: [id number] ROOM: 518 DOCTOR: DAVIS SEVILLA MDJANNIE BIRTHDATE: [birth year] DOS: 03/16/2017 PULMONARY CONSULTATION EVALUATION AND MANAGEMENT CONSULTATION REQUESTED BY: Hospitalist service for the patient for assessment of the current congestive heart failure, bilateral pleural effusions. HISTORY OF PRESENT ILLNESS: This is an 81-year-old female who has been known to me from the past admission. The patient has been admitted to the hospital, treated for congestive heart failure at that time for the patient noted pleural fluid. She was also treated at that time for C. diff colitis as well. She is currently receiving rehabilitation in the _[facility] Detention. She has been admitted to the hospital on 03/15/2017 under the hospitalist service for the patient. She was described symptoms of having increased shortness of breath per this patient, which was occurring at home with significant progressive weight gain for the patient since discharge from the hospital and they treated in the long-term facility. She was noted significant pitting edema of both lateral lower extremity as well as a low portion of the abdomen as per daughter and the patient. She has been admitted to the hospital, currently when suggested with congestive heart failure, recurrent for patient, nonresolving current treatment as well. She denies symptoms of hemoptysis or chest pain. The patient is currently lying at the bed per this patient and was noticed with reduction in symptoms of shortness of breath. She was noticed sleeping earlier, but noted currently fully awake, alert and oriented as the daughter was present in the room with the patient as well. REVIEW OF SYSTEMS: Limited review of systems as the patient noted poor historian, fatigue and tiredness reported. The patient is without symptoms of fever or chills. EYES: Denies any burning, redness, or tenderness. EARS, NOSE, THROAT SYMPTOMS: No sore throat, hoarseness, otalgia, postnasal drainage or epistaxis. CARDIOVASCULAR: Denies any angina pain. Progressive edema of the lower extremity, history of previously known congestive heart failure per this patient was noted during her last admission as well. GASTROINTESTINAL: Dysphagia, nausea, vomiting, diarrhea, abdominal pain, hematemesis, melena, hematochezia. SKIN: Denies any lesions or rashes. MUSCULOSKELETAL: Noted with generalized weakness for this patient without any focal deficit was described or any pain. SKIN: Denied lesions or rashes. PAST MEDICAL HISTORY: 1. The patient was noted with history of congestive heart failure with diastolic dysfunction. 2. History of past C. diff colitis, which has been already treated. 3. Pleural fluid per the patient, was noted resolved with conservative treatment. 4. Decreased mobility with muscle decondition of the patient was also known. 5. History of gastroesophageal reflux. [place], [place] REPORT OF CONSULTATION NAME: MUSA GARCIA UNIT #: [id number] ROOM: 518 DOCTOR: DAVIS SEVILLA MD,[facility] BIRTHDATE: [birth year] 6. History of reported COPD. 7. Essential hypertension. 8. Hypercholesterolemia. 9. Type 2 diabetes mellitus. 10. History of recurrent fall. 11. History of paroxysmal atrial fibrillation. 12. Obesity. PAST SURGICAL HISTORY: 1. Cardiac catheterization. The patient coronary artery stent insertion. 2. Bilateral cataract extraction with lens implantation. 3. History of bladder suspension. 4. Hysterectomy. SOCIAL HISTORY: Current resident of a longterm, , has 5 children with her brother, has 5 children. There is alcohol use, tobacco or illicit drug use reported. FAMILY HISTORY: Reported for coronary artery disease in several family members. MEDICATIONS: Current administered medication was noted as use of lispro insulin, Bumex, Lipitor, potassium chloride, amiodarone, lisinopril, Tradjenta for this patient, Imdur, ferrous sulfate, Remeron, Xarelto, Neurontin, Carafate, primidone, metoprolol tartrate, DuoNeb, Rocephin and other p.r.n. medications. DRUG ALLERGIES HISTORY: NOTED ALLERGY TO THE ACTOS. PHYSICAL EXAMINATION: GENERAL: An 81-year-old elderly female, currently resting on the bed without in distress. Height of 5 feet 4 inches, weight of 202 pounds, BMI 34.7. VITAL SIGNS: For the patient which has been recorded shows normal temperature, respiratory rate 18-20, heart rate of 70-67, blood pressure 160/75-121/90. Pulse oxygen saturation of the patient recorded on 3 liters nasal cannula 97% saturation. HEENT: Examination shows head was atraumatic. Eyes nonicterus. NECK: Supple. CARDIOVASCULAR: S1, S2 audible. LUNGS: Scattered crackles, decreased breath sounds in lower portion of the lungs. ABDOMEN: Soft, nontender. EXTREMITIES: Shows edema, 2+ of the lower extremities. LABORATORY DATA: CBC of 03/15/2017, hemoglobin 8.8, hematocrit of 30.7, WBC count and platelet count normal. CMP of the patient, BUN 32, creatinine of 1.87, glucose 131 for this patient. Potassium was noted at 5.3. CK-MB and troponin of 3 sets of patient yesterday were noted all normal. Lactic acid yesterday noted as 1.2. CBC of this morning shows anemia of the patient unchanged. INR today was 1.2, PTT 36. CMP for the patient, BUN of 29, creatinine 1.[address] scan of the chest with the patient that was done for the patient without contrast personally was reviewed per the [place], [place] REPORT OF CONSULTATION NAME: MUSA GARCIA UNIT #: [id number] ROOM: 518 DOCTOR: VAMSI REBOLLEDO MDM BIRTHDATE: [birth year] patient shows findings of congestive heart failure with interstitial edema was noted with ground-glass opacities the patient in the lungs bilaterally. Small fluid for the patient tracking in the right and the left major fissures as well. Moderate sized pleural fluid noted in the right side and small pleural fluid noted in the left lower lung with area of compression atelectasis. IMPRESSION: 1. The patient who had been currently admitted to the hospital noted with worsening of the congestive heart failure, history of diastolic dysfunction. 3. Compression atelectasis lower lungs per the patient. The findings currently not suggestive of acute pneumonia with the clinical history and further assessment. 3. Past history of chronic obstructive pulmonary disease was also reported without any evidence of acute exacerbation. 4. Previous Clostridium diff colitis, which has been already treated. 5. History of chronic atrial fibrillation, currently getting the medication for that with the beta blockers as well as Xarelto. PLAN OF MANAGEMENT: Diuretic therapy to be continued per the patient in conjunction with consultation from the Cardiology Services and the Nephrology Service because of the elevation of BUN and creatinine, which needs to be closely monitored. Monitoring and management for the patient's hyperkalemia with appropriate medications. If the antibiotic were given to the patient for the medical management of pneumonia, the patient suggested to be completely discontinued them. Monitor respiratory status. Pleural fluid will be monitored. The patient at this time with the conservative treatment if necessary. Thoracentesis could be done for this patient in case of failure of the respond to the current conservative treatment or intra development of the worsening of kidney functions and other reasons. Titrate oxygen saturation 90% greater. The patient has been ordered the BiPAP on last admission and used by the patient well tolerated, so it will not be ordered based on the previous experience with the patient. Other supportive therapy, plan of management and care. I discussed the code status for this patient as well. We made the adequate documentation, the code status for this patient current code status of the patient has been noted to be a full code. With the current multiple medical problems, the patient would be suggested possible consideration of the DNR. No resuscitation would be appropriate JANNIE CANNON MD CM:CONSTR:REPORT OF CONSULTATION 1444 03/17/17 0207 interface
--- NOTE | ~2017-03-15 | CON ---
[place], [place] REPORT OF CONSULTATION NAME: MUSA GARCIA UNIT #: [id number] ROOM: 518 DOCTOR: GISEL NGUYEN MD BIRTHDATE: [birth year] DOS: 03/16/2017 REASON FOR CONSULTATION: Acute kidney injury. HISTORY OF PRESENT ILLNESS: This is an 81-year-old female. She has a past medical history of what seems to be chronic kidney disease, coronary artery disease, COPD, hypertension, GERD and diabetes. She was brought to the hospital due to increasing shortness of breath and weakness. Apparently, she has been gaining weight over the past few weeks as well. Apparently, she had been in a nursing facility, but I do not know the details. She had recent treatment for C. diff according to the notes. The shortness of breath and increasing edema has increased more rapid weight over the past few days, which brought her back to the hospital. The patient was felt to be in CHF when she arrived. She had a Purcell catheter in place and was started on diuretics and has had good response. Apparently, she has not seen a fruit dryer as an outpatient, but has an appointment to see someone in [place] according to her and the family. Her initial creatinine was 1.9. Her true baseline creatinine is not clear, although it is noted she does have underlying CKD. She currently is lying in bed. Her family is at bedside. She was on nasal cannula and appeared comfortable. As mentioned, she has a Purcell catheter in place and has a large amount of urine in her catheter presently. She has had a poor appetite. She denied current shortness of breath or chest pain. ALLERGIES: Listed to ACTOSE. HOME MEDICATIONS: Reviewed and include amiodarone, Lipitor, calcium, Plavix, iron, Lasix, gabapentin, insulin, metolazone, metoprolol, nitroglycerin, Protonix, potassium, primidone, Xarelto, Carafate, vitamin D oral vancomycin to name a few. PAST MEDICAL HISTORY: 1. Chronic kidney disease as stated above. 2. Coronary artery disease. 3. Bradycardia. 4. COPD. 5. Anxiety. 6. GERD. 7. Hypertension. 8. Coronary artery disease with history of [place]. 9. Diabetes mellitus. 10. Anemia. 11. Paroxysmal atrial fibrillation. 12. History of cardiac stenting on a number of occasions. 13. Bilateral cataract extractions. 14. Hysterectomy. FAMILY HISTORY: No reported history of chronic kidney disease, otherwise noncontributory. SOCIAL HISTORY: No current tobacco, alcohol or illicit drugs. [place], [place] REPORT OF CONSULTATION NAME: MUSA GARCIA UNIT #: [id number] ROOM: 518 DOCTOR: GISEL NGUYEN MD BIRTHDATE: [birth year] REVIEW OF SYSTEMS: As per HPI, otherwise a 10-point review of systems was reviewed and was negative. PHYSICAL EXAMINATION: VITAL SIGNS: Temperature 98.2, pulse 67, respiratory rate 18, blood pressure 150/54. GENERAL: She is awake, alert, lying in bed, in no apparent distress. HEENT AND NECK: Shows no JVD. Sclerae are anicteric. Mucous membranes appear moist. Pharynx is clear. Neck is supple. Trachea midline. There is no neck lymphadenopathy. There is no thyromegaly. LUNGS: Diminished breath sounds. There is no appreciable wheezes. There is no tactile fremitus. She is not using accessory muscles of respiration. HEART: Normal S1, S2. No rub, thrill or gallop. ABDOMEN: Soft, nontender. There is no organomegaly or rigidity, rebound or guarding. There is no CVA tenderness. EXTREMITIES: Had 2-3+ edema. There is no lower extremity lymphadenopathy. Distal pulses are 2+. SKIN: Showed no overt rash. There was no petechiae or purpura. Skin temperature was warm. NEUROLOGIC: She was awake, alert. She was following commands. Cranial nerves were intact. LABORATORY DATA: Hemoglobin 8.6, white count 9.1, platelets of 240. Sodium 141, potassium 5.2, CO2 is 34, phosphorus 4.6, magnesium 2.3, albumin of 2.5, BUN 28, creatinine 1.7. IMPRESSION: 1. Chronic kidney disease, which appears to be stage 3 with a baseline creatinine not clear, although I suspect likely in the middle to upper ones range. On reviewing the old records, this appears consistent with that over recent lab results. 2. Congestive heart failure with volume overload. 3. Anemia. 4. History of diabetes mellitus. 5. Coronary artery disease. 6. Underlying chronic obstructive pulmonary disease. 7. History of gastroesophageal reflux disease. PLAN: 1. I agree with current management. Continue diuretics to achieve a negative fluid balance. 2. Dose medication for current creatinine clearance. 3. Place on fluid restriction. 4. Replace electrolytes as needed. 5. Avoid nephrotoxic agents. Avoid NSAID and contrast studies if possible. 6. Currently there is no need for renal replacement therapy. Thank you for this consultation. We will follow with you. [place], [place] REPORT OF CONSULTATION NAME: KAMRAN GARCIAMiguel Angel Monge UNIT #: [id number] ROOM: 518 DOCTOR: GISEL NGUYEN MD BIRTHDATE: [birth year] GISEL NGUYEN MD CM:CONSTR:REPORT OF CONSULTATION 1252 03/16/172040 interface
[2017-03-15 12:01] LABS: BASO % 0.6 % (0.0-1.0); EOS # 0.3 10*3/uL (0.0-0.4); HEMATOCRIT 30.7 % (37.0-47.0); HEMOGLOBIN 8.8 g/dl (12.0-16.0); LYMPH # 1.1 10*3/uL (1.3-4.4); LYMPH % 15.7 % (27.0-41.0); MEAN CELL VOLUME 94.2 fl (81.0-99.0); MEAN CORPUSCULAR HGB CONC 28.7 g/dl (33.0-37.0); MEAN PLATELET VOLUME 10.3 fl (9.6-12.3); MONO # 0.6 10*3/uL (0.1-1.0); MONO % 9.2 % (3.0-9.0); NEUT # 4.7 10*3/uL (2.3-7.9); NEUT % 69.8 % (47.0-73.0); PLATELET COUNT AUTOMATED 234 10*3/uL (130-400); RED BLOOD COUNT 3.26 10*6/uL (4.10-5.10); RED CELL DISTRI WIDTH 15.7 % (0-14.5); WHITE BLOOD COUNT 6.8 10*3/uL (4.8-10.8)
[2017-03-15 12:11] LABS: BILIRUBIN NEGATIVE (NEGATIVE); BLOOD 2+ (NEGATIVE); CLARITY CLOUDY (CLEAR); COLOR YELLOW (YELLOW); GLUCOSE NEGATIVE (NEGATIVE); KETONE NEGATIVE (NEGATIVE); LEUKO ESTERASE 3+ (NEGATIVE); NITRITE NEGATIVE (NEGATIVE); UROBILINOGEN 0.2 E.U./dl (0.2-1.0)
[2017-03-15 12:15] LABS: ALBUMIN 2.5 gm/dl (3.1-4.5); CREATININE 1.87 mg/dL (0.55-1.02); POTASSIUM 5.3 mmol/L (3.5-5.1); TOTAL PROTEIN 7.3 gm/dL (6.4-8.2)
--- NOTE | 2017-03-15 12:15 | NUR ---
PT RESTING IN BED FAMILY IN ROOM NO DISTRESS NOTED CALL LIGHT IN REACH SIDE RAILS UP X2
[2017-03-15 12:30] LABS: WBC TNTC wbc/hpf (0-5)
[2017-03-15 12:34] LABS: BACTERIA 3+; RBC 16-20 rbc/hpf (0-2); YEAST 1+
--- NOTE | 2017-03-15 14:30 | NUR ---
PT TO CT NO DISTRESS NOTED
--- NOTE | 2017-03-15 15:00 | NUR ---
FAMILY CONCERNED SUGAR IS LOW DR ROOT NOTIFIED
--- NOTE | 2017-03-15 15:25 | NUR ---
PT AWAKEN TO VERBAL STIMULI APPEARS DROWSY AT THIS TIME FAMILY IN ROOM PT GIVEN GLASS OF ORANGE JUICE AND PROVIDED A BOX LUNCH WILL MONITOR
[2017-03-15] MEDS ORDERED: LIPITOR40 MG PO (16:44)
[2017-03-15] MEDS ORDERED: METOLAZONE2.5 MG PO (16:52)
--- NOTE | 2017-03-15 16:55 | NUR ---
A 81, admitted to 5E, under the services of JACKIE Mcmillan DO with a diagnosis of PULMONARY EDEMA. Chief complaint is EDEMA AND SOB. Patient arrived via ambulance from ER. Monitor applied. Initial assessment completed. Vital signs taken and recorded. JACKIE MCMILLAN DO notified of admission to the unit. Orders received. See assessment for past medical history, medications and allergies. Patient and/or family oriented to unit. [facility] visitation policy reviewed. Clothing/patient valuable form completed. JESSEE AVILA
[2017-03-15] MEDS ORDERED: NORCO 10-325 T1 EACH PO (16:56)
[2017-03-15] MEDS ORDERED: Clopidogrel75 MG PO (16:57)
[2017-03-15] MEDS ORDERED: OYSTER SHELL 51 EACH PO (16:59)
[2017-03-15] MEDS ORDERED: POTASSIUM CHLO10 ME4 PO (17:01)
[2017-03-15] MEDS ORDERED: PRIMIDONE50 MG PO (17:03)
[2017-03-15] MEDS ORDERED: VITAMIN D-32000 UNI1 PO (17:15)
[2017-03-15] MEDS ORDERED: BUMETANIDE2 MG PO (17:23)
[2017-03-15] MEDS ORDERED: LIPITOR80 MG PO (17:23)
[2017-03-15] MEDS ORDERED: CARAFATE1 G1 PO (17:24)
[2017-03-15] MEDS ORDERED: COLACE100 MG PO (17:25)
[2017-03-15] MEDS ORDERED: DIABETIC T100 MG/51 PO (17:26)
[2017-03-15] MEDS ORDERED: NORCO 5-325 TA1 EACH PO (17:28)
[2017-03-15] MEDS ORDERED: NITROGLYCERIN0.4 MG SL (17:31)
[2017-03-15] MEDS ORDERED: VITAMIN D3400 UNIT PO (17:34)
--- NOTE | 2017-03-15 17:37 | NUR ---
MEDICATION RECONCLIATION LIST UP TO DAY VIA SHELTER.
--- NOTE | 2017-03-15 17:51 | NUR ---
DR. ADAMS NOTIFIED OF CONSULT.
--- NOTE | 2017-03-15 17:58 | NUR ---
DR. FERRER NOTIFIED OF CONSULT MESSAGE LEFT WITH ANSWERING SERVICE.
--- NOTE | 2017-03-15 18:12 | NUR ---
SPOKE WITH DR. MONTEZ REGARDING CONSULT, SEE NEW ORDERS.
[2017-03-16] VITALS: BP 152/57
[2017-03-16 06:48] LABS: BASO % 0.3 % (0.0-1.0); EOS # 0.2 10*3/uL (0.0-0.4); EOS % 2.6 % (1.0-4.0); HEMATOCRIT 29.6 % (37.0-47.0); HEMOGLOBIN 8.6 g/dl (12.0-16.0); LYMPH # 0.7 10*3/uL (1.3-4.4); LYMPH % 7.2 % (27.0-41.0); MEAN CELL VOLUME 92.2 fl (81.0-99.0); MEAN CORPUSCULAR HGB 26.8 pg (27.0-31.0); MEAN CORPUSCULAR HGB CONC 29.1 g/dl (33.0-37.0); MEAN PLATELET VOLUME 10.5 fl (9.6-12.3); MONO # 0.7 10*3/uL (0.1-1.0); MONO % 7.4 % (3.0-9.0); NEUT # 7.4 10*3/uL (2.3-7.9); NEUT % 81.7 % (47.0-73.0); PLATELET COUNT AUTOMATED 240 10*3/uL (130-400); RED BLOOD COUNT 3.21 10*6/uL (4.10-5.10); RED CELL DISTRI WIDTH 15.7 % (0-14.5); WHITE BLOOD COUNT 9.1 10*3/uL (4.8-10.8)
[2017-03-16 07:21] LABS: ACT PARTIAL THROMBO TIME 36.8 SECONDS (20.8-31.5); INTERNATIONAL NORM RATIO 1.2 (2.0-3.5)
[2017-03-16 07:31] LABS: ALBUMIN 2.5 gm/dl (3.1-4.5); CREATININE 1.69 mg/dL (0.55-1.02); PHOSPHOROUS 4.6 mg/dL (2.5-4.9); POTASSIUM 5.2 mmol/L (3.5-5.1)
[2017-03-16 08:00] VITALS: BP 150/54
--- NOTE | 2017-03-16 10:55 | NUR ---
DR CANNON ROUNDED AND NO NEW ORDERS.CONTINUE WITH CURRENT PLAN OF CARE AND BELIEVED THIS TO BE CHF NOT PNEUMONIA.
--- NOTE | 2017-03-16 11:20 | NUR ---
DR MONTEZ ROUNDED, NO NEW ORDERS. WILL CONTINUE CURRENT PLAN OF CARE.
[2017-03-16 12:00] VITALS: BP 160/75
[2017-03-16 16:00] VITALS: BP 153/46
[2017-03-16 20:00] VITALS: BP 149/62
--- NOTE | 2017-03-16 20:00 | NUR ---
RESTING IN BED WITH EYES CLOSED. 02 INTACT. NO DISTRESS NOTED. CALL LIGHT WITHIN REACH.
--- NOTE | 2017-03-16 22:00 | NUR ---
BLOOD SUGAR 88; NO COVERAGE REQUIRED.
[2017-03-17] VITALS: BP 147/62
--- NOTE | 2017-03-17 06:00 | NUR ---
RESTING IN BED WITH EYES CLOSED. O2 INTACT. NO DISTRESS NOTED. CALL LIGHT WITHIN REACH.
--- NOTE | 2017-03-17 07:12 | NUR ---
SPOKE TO FAMILY AT BEDSIDE WITH PM RN. ATTEMPTED TO OBTAIN ABG'S WITH 2 FAILED ATTEMPTS.AT THAT TIME DAUGHTER ASKED US TO STOP TRYING. SPOKE TO DAUGHTER REGARDING CODE STATUS CHANGE. FAMILY WISHED TO SPEAK TO PHYSICIAN AT BEDSIDE. NOTIFIED DR FITZGERALD.
[2017-03-17 08:00] VITALS: BP 161/45
--- NOTE | 2017-03-17 09:02 | NUR ---
PHYSICAL THERAPY PAtients family present and report patient is going hospice. Will D/C PT orders at this time. Thank you for this referral. Alexandra Bennett,PT
--- NOTE | 2017-03-17 09:03 | NUR ---
Family present at the door when OTR arrived for OT evaluation. Family reports that patient is "not doing well" medically and that family is requesting hospice and no OT at this time. Discharge OT referral per family request. Conchita Evans OTR/marcos
--- NOTE | 2017-03-17 09:32 | NUR ---
Received order for Hospice. In to discuss with patients two daughters who are at bedside. They asked for code status to be changed and to have in patient hospice. Discussed the fact that patient is from [place] but was currently snf at [facility] in [facility]. provided list of hospice agencies to daughters, they chose [facility]. Contacted [facility] and faxed order/referral.
--- NOTE | 2017-03-17 11:38 | NUR ---
DILAUDID 0.5 MG GIVEN FOR S/S DISTRESS,PER FAMILY REQUEST.
[2017-03-17 12:00] VITALS: BP 163/60
--- NOTE | 2017-03-17 13:15 | NUR ---
Stephanie RILEY from [facility] stated she met with patients daughters. Patient will be made in patient hospice.
== END 2017-03-17 13:58 | disposition hospice, home (50) | DRG 291 ==
LOC: ED 11:26 → EDHOLD 15:08 → 5E 15:08
PROVIDERS: Emergency Medicine; Internal Medicine; ADMIT Internal Medicine
DX: I13.0 Hypertensive heart and chronic kidney disease with heart failure and stage 1 through stage 4 chronic kidney disease, or unspecified chronic kidney disease (principal); N17.0 Acute kidney failure with tubular necrosis; E43 Unspecified severe protein-calorie malnutrition; E11.22 Type 2 diabetes mellitus with diabetic chronic kidney disease; E87.5 Hyperkalemia; I48.0 Paroxysmal atrial fibrillation; L03.115 Cellulitis of right lower limb; E66.01 Morbid (severe) obesity due to excess calories; I48.2 Chronic atrial fibrillation; I50.33 Acute on chronic diastolic (congestive) heart failure; N30.01 Acute cystitis with hematuria; J98.11 Atelectasis; Z66 Do not resuscitate; J44.9 Chronic obstructive pulmonary disease, unspecified; K21.9 Gastro-esophageal reflux disease without esophagitis; R26.2 Difficulty in walking, not elsewhere classified; D72.810 Lymphocytopenia; Z51.5 Encounter for palliative care; E78.00 Pure hypercholesterolemia, unspecified; Z96.1 Presence of intraocular lens; N18.3 Chronic kidney disease, stage 3 (moderate); I25.10 Atherosclerotic heart disease of native coronary artery without angina pectoris; F41.1 Generalized anxiety disorder; D64.9 Anemia, unspecified; Z88.8 Allergy status to other drugs, medicaments and biological substances; Z79.899 Other long term (current) drug therapy; I25.2 Old myocardial infarction; Z95.5 Presence of coronary angioplasty implant and graft; Z79.4 Long term (current) use of insulin; Z90.710 Acquired absence of both cervix and uterus; Z98.42 Cataract extraction status, left eye; Z98.41 Cataract extraction status, right eye; Z82.49 Family history of ischemic heart disease and other diseases of the circulatory system; Z84.1 Family history of disorders of kidney and ureter; Z79.1 Long term (current) use of non-steroidal anti-inflammatories (NSAID); Z68.34 Body mass index [BMI] 34.0-34.9, adult

== ENCOUNTER 2017-03-17 14:16 | Inpatient (IN) | payer OTHER, MEDICARE ==
[~2017-03-17 14:16] MED LIST changes: +BUMETANIDE2 MG PO; +Clopidogrel75 MG PO; +LIPITOR40 MG PO; +LIPITOR80 MG PO; +METOLAZONE2.5 MG PO; +NITROGLYCERIN0.4 MG SL; +OYSTER SHELL 51 EACH PO; +POTASSIUM CHLO10 ME4 PO; +VITAMIN D-32000 UNI1 PO; +VITAMIN D3400 UNIT PO
--- NOTE | 2017-03-17 14:40 | NUR ---
Time: 1441 A 81 year old FEMALE admitted to under services [facility]. ANTONI NUNEZ
[2017-03-17 14:41] VITALS: BP 163/60
[2017-03-17 16:00] VITALS: BP 116/58
[2017-03-17 20:00] VITALS: BP 130/59
--- NOTE | 2017-03-17 21:16 | NUR ---
REFUSED BY FAMILY AT THIS TIME
[2017-03-18] VITALS: BP 156/59
--- NOTE | 2017-03-18 02:42 | NUR ---
PATIENT RESTING COMFORTABLY IN BED
--- NOTE | 2017-03-18 04:40 | NUR ---
FAMILY IN WITH PATIENT AND THEY FEEL PATIENT IS RESTLESS THEY ASKE FOR PATIENT TO HAVE PRN MORPHINE WILL REASSESS FOR EFFECTIVENESS
--- NOTE | 2017-03-18 06:11 | NUR ---
FAMILY IN ROOM WITH PATIENT CALL LIGHT IN REACH SEE SHIFT ASSESSMENT
[2017-03-18 08:00] VITALS: BP 156/62
--- NOTE | 2017-03-18 08:15 | NUR ---
PER DAUGHTER, PRN SL MORPHINE HAS BEEN INEFFECTIVE FOR PAIN CONTROL.
--- NOTE | 2017-03-18 08:30 | NUR ---
[facility] NURSES IN TO SEE PATIENT RE: PLAN OF CARE.
--- NOTE | 2017-03-18 08:51 | NUR ---
MEDICATED WITH PRN SL ATIVAN AND MORPHINE FOR RESTLESSNESS AND GENERALIZED PAIN S/S. ALSO ADMINISTERED SL ATROPINE SCHEDULED FOR MOIST RESPIRATIONS.
--- NOTE | 2017-03-18 09:37 | NUR ---
PATIENT RESTING QUIETLY WITH NO S/S PAIN OR AGITATION, RESPIRATIONS EASY AND REGULAR ON O2 3L NC.
--- NOTE | 2017-03-18 10:49 | NUR ---
MEDICATED WITH PRN SL MORPHINE FOR S/S PAIN.
[2017-03-18 12:00] VITALS: BP 132/50
--- NOTE | 2017-03-18 12:33 | NUR ---
MEDICATED WITH PRN SL MORPHINE AND ATIVAN FOR S/S PAIN AND RESTLESSNESS; PATIENT FREQUENTLY PRESSES HAND TO FOREHEAD, PER DAUGHTER SHE PROBABLY HAS A HEADACHE.
--- NOTE | 2017-03-18 14:40 | NUR ---
MEDICATED WITH PRN SL MORPHINE FOR S/S PAIN; EARLIER SL MORPHINE AND ATIVAN ADMINISTRATION EFFECTIVE FOR SHORT AMOUNT OF TIME, PER DAUGHTER. ALSO ADMINISTERED PRN PA TYLENOL FOR S/S HEADACHE, CHECKED BEDSIDE GLUCOSE PER DAUGHTER'S REQUEST. RESULT [id number].
[2017-03-18 16:00] VITALS: BP 156/50
--- NOTE | 2017-03-18 18:56 | NUR ---
PT GIVEN PRN SUBLINGUAL MORPHINE FOR DISCOMFORT. WILL MONITOR.
--- NOTE | 2017-03-18 20:18 | NUR ---
PT RESTING WITH FAMILY AT BEDSIDE. RESPIRATIONS EASY WITH 3 LITERS BY NASAL CANNULA. NO S/S OF PAIN OR DISCOMFORT. CALL LIGHT IN REACH.
--- NOTE | 2017-03-18 21:04 | NUR ---
PATIENT GIVEN MORPHINE FOR RESTLESSNESS.
--- NOTE | 2017-03-18 21:05 | NUR ---
PT MOANING WITH FACIAL GRIMACE, MEDICATED WITH PO MORPHINE.
--- NOTE | 2017-03-18 21:30 | NUR ---
MORPHINE EFFECTIVE, PATIENT CALMED.
[2017-03-19] VITALS: BP 110/60
--- NOTE | 2017-03-19 00:21 | NUR ---
PATIENT RESTLESS WITH OCC. MOANS. MORPHINE GIVEN.
--- NOTE | 2017-03-19 00:40 | NUR ---
PATIENT CALMED, MOANING CEASED.
--- NOTE | 2017-03-19 02:25 | NUR ---
PATIENT RESTLESS, TURNING HEAD AND MOANING. MORPHINE GIVEN PER PRN ORDER.
--- NOTE | 2017-03-19 02:45 | NUR ---
PATIENT CALMED. MOANING CEASED.
--- NOTE | 2017-03-19 04:58 | NUR ---
PATIENT MOANING , RESTLESS. MORPHINE GIVEN PER PRN ORDER.
--- NOTE | 2017-03-19 05:20 | NUR ---
PATIENT LYING IN BED, MORPHINE EFFECTIVE,MOANING STOPPED.
[2017-03-19 08:00] VITALS: BP 141/47
--- NOTE | 2017-03-19 08:00 | NUR ---
PATIENT RESTING IN BED. PATIENT IS LETHARGIC AND HARD TO AROUSE. PATIENT OPENS EYES ON OCCASION BUT IS UNABLE TO VERBALLY RESPOND. FAMILY IS AT THE BEDSIDE. PATIENT IS [facility]. PATIENT IS ON 2LPM VIA NC. CALL LIGHT IS WITHIN REACH. BODY ALARM IS ACTIVATED. HOB ELEVATED. HEELS ARE ELEVATED. SEE ASSESSMENT.
--- NOTE | 2017-03-19 08:43 | NUR ---
PATIENT GIVEN MORPHINE FOR PAIN. PATIENT WAS ABLE TO TOLERATE SWALLOWING WITHOUT ISSUE. WILL MONITOR AND RE-EVALUATE.
--- NOTE | 2017-03-19 09:29 | NUR ---
MORPHINE EFFECTIVE. PATIENT NO LONGER GROANING. PATIENT IS SLEEPING SOUNDLY IN BED.
--- NOTE | 2017-03-19 11:25 | NUR ---
PATIENT GIVEN MORPHINE FOR PALLIATICE CARE MEASURE. PATIENT TOLERATED SWALLOWING MEDICATION WELL. WILL CONTINUE TO MONITOR AND REASSESS
--- NOTE | 2017-03-19 12:28 | NUR ---
MORPHINE EFFECTIVE. PATIENT RESTING EASILY IN THE ROOM. FAMILY AT THE BEDSIDE. NO FURTHER REQUESTS AT THIS TIME.
--- NOTE | 2017-03-19 13:30 | NUR ---
PATIENT GIVEN MORPHINE FOR PAIN CHARACTERIZED BY MOANING, FACIAL GRIMACING AND TREMBLING EXTREMITIES. WILL REASSESS AND MONITOR
--- NOTE | 2017-03-19 14:20 | NUR ---
,ORPHINE WAS EFFECTIVE. PATIENT RESTING PEACEFULLY
--- NOTE | 2017-03-19 14:35 | NUR ---
MOBILE PRODUCT MANAGER IN TO SEE PATIENT. PATIENT'S LAST RIGHTS GIVEN. MORTUARY PAPERWORK FILLED OUT.
--- NOTE | 2017-03-19 15:17 | NUR ---
PATIENT GIVEN MORPHINE FOR PAIN AEB SHAKING, GROANING, AND USING ACCESSORY MUSCLES TO BREATHE. WILL CONTINUE TO MONITOR AND REASSESS.
[2017-03-19 16:00] VITALS: BP 140/61
--- NOTE | 2017-03-19 16:39 | NUR ---
MORPHINE HAS BEEN EFFECTIVE. PATIENT IS RESTING COMFORTABLE IN ROOM, FAMILY IS IN WITH PATIENT. CALL LIGHT WITHIN REACH.
--- NOTE | 2017-03-19 17:25 | NUR ---
MEDICATED SL ORDERED AT FAMILY'S REQUEST WITH MORPHINE FOR C/O PERCEIVED PAIN. PT IS NOT MOANING NOR IS SHE RESPONSIVE TO VERBAL STIMULIS. SEE EMAR
--- NOTE | 2017-03-19 19:22 | NUR ---
PATIENT WAS GIVEN MORPHINE AND ATIVAN PER PT REQUEST FOR PAIN AND PALLIATIVE CARE MEASURE. WILL CONTINUE TO MONITOR AND REASSESS.
--- NOTE | 2017-03-19 19:36 | NUR ---
PATIENT IS ASLEEP IN THE ROOM, PATIENT IS LETHARGIC AND ONLY AROUSES TO TACTILE STIMULATION. FAMILY IS IN THE BEDROOM. CALL LIGHT WITHIN REACH. PATIENT IS RECEIVING PALLIATIVE/ END OF LIFE CARE.
[2017-03-19 20:00] VITALS: BP 131/52
--- NOTE | 2017-03-19 21:12 | NUR ---
MORPHINE GIVEN PER REQUEST. PATIENT WITH OCC. SIGHS, AND MOANS. GIVEN PER PRN ORDER.
[2017-03-20] VITALS: BP 113/50
--- NOTE | 2017-03-20 04:13 | NUR ---
PATIENT WITH INCREASED NOISY RESPIRATIONS, SKIN WARM TO THE TOUCH, TRANSPARENCY NOTED TO SKIN. PATIENT GIVEN TYLENOL SUPPOSITORY FOR TEMP, ROXANOL, ATIVAN AND ATROPINE PER PRN ORDERS.
--- NOTE | 2017-03-20 15:08 | NUR ---
MEDICATED WITH PRN SL ATIVAN AND SL OXYCODONE FOR S/S RESTLESSNESS AND PAIN.
[2017-03-20 16:00] VITALS: BP 141/44
--- NOTE | 2017-03-20 19:37 | NUR ---
SPOKE TO AT THIS TIME REGARDING ORDER FOR DNR-CC CODE STATUS. INSTRUCTED TO PUT IN ORDER AT THIS TIME. ALSO INSTRUCTED TO PRINT DNR-CC PAPER AND PLACE IT ON FRONT OF CHART FOR TO SIGN TOMORROW.
--- NOTE | 2017-03-20 19:52 | NUR ---
ABSENCE OF VITAL SIGNS VERIFIED BY 2 RNs.
--- NOTE | 2017-03-20 20:03 | NUR ---
NOTIFIED OF EXPIRATION VERIFIED BY TWO RNs. SHIFT DIRECTOR ALSO NOTIFIED AT THIS TIME.
--- NOTE | 2017-03-20 20:06 | NUR ---
CALLED [facility] TO NOTIFY THEM OF PATIENT'S PASSING.
--- NOTE | 2017-03-20 20:12 | NUR ---
CALLED [facility] AT THIS TIME. BODY WAS RELEASED TO HOME. .
--- NOTE | 2017-03-20 20:41 | NUR ---
HERE TO SEE FAMILY.
--- NOTE | 2017-03-20 21:50 | NUR ---
PATIENT'S BODY DEPARTED FOR [facility] AT THIS TIME IN CARE OF [facility] REP. PAPERWORK COMPLETED/SIGNED PER POLICY. PATIENT'S BELONGINGS SENT HOME WITH FAMILY.
== END 2017-03-20 19:52 | disposition expired | DRG 189 ==
LOC: 5E 14:16
PROVIDERS: ADMIT Internal Medicine
DX: J96.01 Acute respiratory failure with hypoxia (principal); N17.9 Acute kidney failure, unspecified; I50.30 Unspecified diastolic (congestive) heart failure; E87.5 Hyperkalemia; N39.0 Urinary tract infection, site not specified; L03.90 Cellulitis, unspecified; R74.8 Abnormal levels of other serum enzymes; Z66 Do not resuscitate; Z51.5 Encounter for palliative care